=== PATIENT | female | born 1980 | race Asian ===

== ENCOUNTER 2024-10-17 09:38 | Emergency (ER) | payer OTHER, SELFPAY ==
[2024-10-17] VITALS (14 sets, daily range): BP systolic 120–194; BP diastolic 85–153; PULSE 59–97; RESP 16–19; TEMP 36.6; O2SAT 98–100
--- NOTE | ~2024-10-17 | XR_ITS ---
XR chest 2V Ordering provider: Lanre Harrell MD History: 44 years Female with . CP dizzy nausea . Comparison: None. FINDINGS: MEDIASTINUM: The cardiac silhouette is not enlarged. LUNGS: No infiltrates, effusions or pneumothorax. OTHER: No free air under the diaphragm. IMPRESSION: No acute cardiopulmonary pathology. Reviewed, dictated and finalized at location A. 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
--- NOTE | 2024-10-17 09:49 | ECG_ITS ---
Test Date: 2024-10-17 09:47:05 Measurements Intervals [place] Rate: 90 P: 56 VT: 138 QRS: 29 QRSD: 98 T: -16 QT: 347 QTc: 426 Interpretive Statements SINUS RHYTHM No previous ECG available for comparison Electronically Signed On 10-17-2024 14:43:44 SKILL TRAINING PROGRAM COORDINATOR by Clarita Fletcher M.D.
--- NOTE | 2024-10-17 09:57 | ED_ITS ---
HPI - Chest Pain General Chief Complaint: Chest Pain Stated Complaint: sob Time Seen by Provider: 10/17/24 09:51 History of Present Illness HPI narrative: 44-year-old female with reported history of hypertension and hyperlipidemia presents to the emergency department with at bedside for chest pain. Patient states she has had a burning sensation in her chest for the past couple days, however she woke up this morning with a sharp pain in her chest along with shortness of breath. She states the pain waxes and wanes, worse when she takes a deep breath. Denies exertional symptoms. She states the pain radiates to her left scapula. She takes metoprolol but did not take a dose this morning but has otherwise been compliant. She denies lower extremity edema, cough or congestion, hemoptysis, history of VTE, recent surgeries or hospitalizations, prior cardiac history, family cardiac history. She does not smoke. States she had similar symptoms 5-7 years ago and was evaluated by a liquid chlorine operator. States she had a stress test at that time that was unremarkable. Related Data Home Medications ?Medication ?Instructions ?Recorded ?Confirmed ?Last Taken ?Type famotidine 20 mg tablet 20 mg PO BID 10/17/24 10/17/24 10/16/24 History metoprolol succinate 50 mg 50 mg PO DAILY 10/17/24 10/17/24 10/16/24 History tablet,extended release 24 hr Allergies Allergy/AdvReac Type Severity Reaction Status Date / Time plum Allergy Unknown Verified 10/17/24 09:57 Review of Systems 2 Review of Systems: All systems reviewed & are unremarkable except as noted in HPI and below Exam 2 Narrative: GENERAL: Well-appearing, well-nourished, and in no acute distress. HEAD: Normocephalic, atraumatic. EYES: PERRLA and EOMI. ENT: Nares clear, no rhinorrhea or epistaxis. Mucous membranes moist. NECK: Supple. CHEST: Clear to auscultation. No respiratory distress. speaking in full sentences HEART: Regular rate and rhythm. No murmur heard. Normal peripheral pulses. ABDOMEN: Soft, nontender, nondistended, normal active bowel sounds. EXTREMITIES: Normal range of motion. No edema. Negative Homans bilaterally SKIN: Warm, dry, no rash. NEURO: No focal deficits. Alert and oriented x3 Course Vital Signs Vital signs: Vital Signs Temperature 97.8 F 10/17/24 09:50 Pulse Rate 88 10/17/24 09:50 Respiratory Rate 18 10/17/24 09:50 Blood Pressure 144/100 H 10/17/24 09:50 Pulse Oximetry 100 10/17/24 09:50 Oxygen Delivery Room Air 10/17/24 09:50 Temperature 97.8 F 10/17/24 09:50 Pulse Rate 59 L 10/17/24 12:31 Respiratory Rate 16 10/17/24 12:31 Blood Pressure 129/88 10/17/24 12:31 Pulse Oximetry 100 10/17/24 12:31 Oxygen Delivery Room Air 10/17/24 10:07 MDM - Chest Pain MDM Narrative Medical decision making narrative: 44-year-old female presents to the emergency department for chest pain and shortness of breath. See HPI for further history. Vitals with blood pressure 144/100, otherwise unremarkable. Patient does have history of hypertension and did not take her metoprolol today. Will provide a dose here. She is resting comfortably in the exam bed and is in no distress. She is speaking in full sentences. Lung sounds are clear. EKG shows normal sinus rhythm with rate of 90 ppm, normal MI interval, normal QRS duration, normal QTC, no ischemic changes. Troponin is undetectable x2. D- dimer is less than 0.27, wells score is low risk. Chest x-ray shows no acute cardiopulmonary findings. CBC and chemistries are unremarkable. Lipase is normal. Patient received her daily dose of metoprolol with improvement in blood pressure to 129/88. Patient received Pepcid with resolution of symptoms. Will provide Pepcid to the pharmacy as reflux may be source of symptoms. Also encouraged to follow up with Cardiology for outpatient stress test, referral provided. ED return precautions discussed. She is agreeable with the plan verbalized understanding. Discharged in stable condition. Lab Data 10/17/24 10:02 10/17/24 10:02 Labs: Lab Results 10/17/24 10/17/24 10/17/24 Range/Units 10:02 10:02 13:05 WBC 6.9 (4.5-10.0) K/mm3 RBC 4.47 (4.2-5.4) M/mm3 Hgb 14.5 (12.0-15.0) g/dL Hct 41.9 (37.0-47.0) % MCV 93.7 (80-100) fl MCH 32.4 (26-34) pg MCHC 34.6 (32-36) g/dl RDW 12.3 (11.5-14.5) % Plt Count 241 (150-375) k/mm3 MPV 10.3 (7.4-10.4) fl Immature Gran % (Auto) 0.6 H (0-0.5) % Neut % (Auto) 68.2 (45.5-73.1) % Lymph % (Auto) 21.7 (18.3-44.2) % [place] % (Auto) 7.8 (2.6-8.5) % Eos % (Auto) 1.3 (0-4.4) % Baso % (Auto) 0.4 (0.2-1.2) % Lymph # (Auto) 1.50 (0.9-3.2) K/mm3 [place] # (Auto) 0.5 (0.1-0.6) K/mm3 Eos # (Auto) 0.1 (0-0.3) K/mm3 Baso # (Auto) 0.0 (0.0-0.1) K/mm3 Abs Immat Gran (auto) 0.04 H (0.00-0.031) K/mm3 Absolute Neuts (auto) 4.7 (1.3-6.7) K/mm3 Absolute Nucleated RBC 0.000 (0.0-0.012) K/mm3 Nucleated RBC % 0.0 (0.0-0.2) % PT 12.9 (11.1-14.7) Seconds INR 0.9 APTT 21.2 L (22.3-36.8) Seconds D-Dimer < 0.27 Cancelled (<0.48) ug/mL Sodium 137 (137-145) mmol/L Potassium 3.8 (3.4-5.0) mmol/L Chloride 106 (98-107) mmol/L Carbon Dioxide 25 (22-30) mmol/L Anion Gap 6 (4-12) mmol/L BUN 10 (7-17) mg/dL Creatinine 0.60 L (0.7-1.0) mg/dL Estim Creat Clear Calc 79 ml/min Estimated GFR > 60 (59 - ) Glucose 84 (65-110) mg/dL Calcium 9.2 (8.4-10.2) mg/dL Total Bilirubin 1.0 (0.2-1.3) mg/dL AST 30 (14-36) U/L ALT 26 (6-35) U/L Alkaline Phosphatase 55 (38-126) U/L Troponin I < 0.012 < 0.012 (0.000-0.034) ng/mL NT-Pro-B Natriuret Pep < 20 (19.9-100) pg/mL Total Protein 8.0 (6.3-8.2) g/dL Albumin 4.6 (3.5-5.1) g/dL Lipase 182 (23-300) U/L Discharge Plan Discharge Clinical Impression: Atypical chest pain Patient Disposition: Home, Self-Care Condition: Stable Instructions: Antibiotic Form, Chest Pain (ED) Additional Instructions: Follow up with a liquid chlorine operator for an outpatient stress test. Return to the emergency department if you develop any new or worsening symptoms. Patient Language: Andorran Prescriptions: New famotidine 20 mg tablet 20 mg PO DAILY Qty: 20 0RF No Action metoprolol succinate 50 mg tablet extended release 24 hr 50 mg PO DAILY famotidine 20 mg tablet 20 mg PO BID Follow-up/Referrals: Clark,Heather Laureano APN [Primary Care Provider] - Clarita Fletcher MD [Physician] - Quality HEART score for chest pain patients History: slightly suspicious ECG: normal Age: > 45 and < 65 years Risk factors: > or = to 3 risk factors of atherosclerotic disease Troponin: < or = to 1x normal limit Heart score: 3
[2024-10-17] MEDS: FAMOTIDINE 20 MG/2 ML VIAL IV PUSH (10:02)
[2024-10-17] MEDS: ASPIRIN 81 MG CHEWABLE TABLET 324 MG PO (10:02)
[2024-10-17] MEDS: METOPROLOL SUCCINATE EXT REL 50 MG TABCR PO (10:05)
[2024-10-17 10:13] LABS: Basophils Percent Auto 0.4 % (0.2-1.2); Eosinophils Absolute Auto 0.1 K/mm3 (0-0.3); Eosinophils Percent Auto 1.3 % (0-4.4); Hematocrit 41.9 % (37.0-47.0); Hemoglobin 14.5 g/dL (12.0-15.0); Immature Granulocyte Absolute 0.04 K/mm3 (0.00-0.031); Immature Granulocyte Percent A 0.6 % (0-0.5); Lymphocytes Percent Auto 21.7 % (18.3-44.2); Mean Corpuscular HGB Conc 34.6 g/dl (32-36); Mean Corpuscular Hemoglobin 32.4 pg (26-34); Mean Corpuscular Volume 93.7 fl (80-100); Mean Platelet Volume 10.3 fl (7.4-10.4); Monocytes Absolute Auto 0.5 K/mm3 (0.1-0.6); Monocytes Percent Auto 7.8 % (2.6-8.5); Neutrophils Absolute Auto 4.7 K/mm3 (1.3-6.7); Neutrophils Percent Auto 68.2 % (45.5-73.1); Platelet Count Result 241 k/mm3 (150-375); Red Blood Count 4.47 M/mm3 (4.2-5.4); Red Cell Distribution Width 12.3 % (11.5-14.5); White Blood Count 6.9 K/mm3 (4.5-10.0)
[2024-10-17 10:33] LABS: INR 0.9; Partial Thromboplastin Time 21.2 Seconds (22.3-36.8); Prothrombin Time 12.9 Seconds (11.1-14.7)
[2024-10-17 10:34] LABS: Alanine Aminotransferase 26 U/L (6-35); Albumin Level 4.6 g/dL (3.5-5.1); Alkaline Phosphatase 55 U/L (38-126); Anion Gap 6 mmol/L (4-12); Aspartate Amino Transferase 30 U/L (14-36); Blood Urea Nitrogen 10 mg/dL (7-17); Calcium 9.2 mg/dL (8.4-10.2); Carbon Dioxide 25 mmol/L (22-30); Chloride 106 mmol/L (98-107); Estimated CRCL calculation 79 ml/min; Estimated Glomerular Filt Rate > 60; Glucose 84 mg/dL (65-110); Lipase 182 U/L (23-300); Potassium 3.8 mmol/L (3.4-5.0); Sodium 137 mmol/L (137-145)
[2024-10-17 10:43] LABS: NT Pro B Type Natriuretic Pept < 20 pg/mL (19.9-100)
[2024-10-17 10:46] LABS: D Dimer < 0.27 ug/mL (<0.48)
[2024-10-17 11:07] LABS: Troponin I < 0.012 ng/mL (0.000-0.034)
--- NOTE | 2024-10-17 12:31 | ECG_ITS ---
Test Date: 2024-10-17 12:35:03 Measurements Intervals [place] Rate: 64 P: 58 MS: 148 QRS: 40 QRSD: 103 T: 19 QT: 421 QTc: 436 Interpretive Statements SINUS RHYTHM Compared to ECG 10/17/2024 09:47:05 No significant changes Electronically Signed On 10-17-2024 14:46:41 INFORMATION SYSTEMS TECHNICIAN by Clarita Fletcher M.D.
[2024-10-17 13:36] LABS: Troponin I < 0.012 ng/mL (0.000-0.034)
--- OUTSIDE RECORDS SUMMARY | 2024-10-26 08:28 | XMS_ITS | Clinical Summary ---
Author Organization [facility] [employer] Address [address] [place] [address] Care Team Providers Care Rn Family Practice Name Role Phone Unavailable Primary Care Provider Unavailabl e Source Comments [facility] [employer],non-owned Affiliates and Associated Physician Practices is amultiple site organization consisting of ambulatory clinics and hospital sitesin [place], [place], [place] and [place]. This disclosure is being madepursuant to the Care Everywhere program and may not contain all information available regarding this patient. Last updated 18.[employer] Allergies No known active allergies Medications * Be aware that medications may not be up to date on this document. Alwaysverify current medications with the patient. Medication Sig Dispensed Refills Start Date End Date Status tretinoin (RETIN-A) 0.05 % cream Apply a pea-sized amount to entire face QHS. 30 day supply. 45 g 2 06/17/2020 Active Additional Information Patient not taking.Reported on 12/14/2021 cetirizine (ZYRTEC) 10 MG tablet Take 10 mg by mouth once daily 12/15/2020 Active ibuprofen (MOTRIN) 800 MG tablet Take 800 mg by mouth every 8 hours as needed 01/20/2021 Active fluticasone propionate (FLONASE) 50 MCG/ACT nasal spray USE ONE SPRAY IN EACH NOSTRIL ONCE A DAY 01/19/2021 Active cyclobenzaprine (FLEXERIL) 10 MG tablet Take 10 mg by mouth nightly as needed 12/15/2020 Active Tri-Saba 0.01-4-0.05 % creamIndications:Madonna asma APPLY A PEA SIZED AMOUNT TO ENTIRE FACE NIGHTLY FOR 3 MONTHS AT A TIME. 30 DAY SUPPLY. 30 g 3 06/30/2022 Active Active Problems Problem Noted Date Diagnosed Date Iron deficiency 03/23/2017 Vitamin D deficiency 03/23/2017 Chest pain 03/22/2017 Health maintenance examination 03/22/2017 Hyperlipidemia 03/22/2017 Mitral valve prolapse 03/22/2017 Shortness of breath 03/22/2017 Sleep apnea, unspecified 03/22/2017 Immunizations Name Administration Dates Next Due INFLUENZA 10/21/2021,08/09/2020 Family History Medical History Relation Name Comments Cancer - Skin, Melanoma Neg Hx Cancer - Skin, Non Melanoma Neg Hx Social History Tobacco Use Types Packs/Day Years Used Date Smoking Tobacco: Never Smokeless Tobacco: Never Alcohol Use Standard Drinks/Week Comments No 0 (1 standard drink = 0.6 oz pur e alcohol) Sex and Gender Information Value Date Recorded Sex Assigned at Not on file Gender Identity Not on file Sexual Orientation Not on file Plan of Treatment Health Maintenance Due Date Last Done Comments COLOGUARD (AGES 45-75) - COL ON CA SCREENING 1978 COLON MONITORING 1978 COLONOSCOPY - COLON CA SCREENING 1978 CT COLONOGRAPHY - COLON CA SCREENING 1978 Colorectal Cancer Screening 1978 FIT - COLON CA SCREENING 1978 FLEX SIG - COLON CA SCREENING 1978 LIPID TESTING 1978 MAMMOGRAM 1978 PAP SMEAR 1978 HIV SCREENING 1993 HEPATITIS C SCREENING 08/03/1996 DTAP/TDAP/TD VACCINES (1 - Tdap) 1997 HEPATITIS B VACCINE (1 of 3 - 19+ 3-dose series) 1997 DEPRESSION SCREENING 10/31/2023 COVID-19 VACCINE (1 - 2023-2 5 season) 2024 INFLUENZA VACCINE (#1) 2024 1, 08/09/2020 ZOSTER VACCINE (1 of 2) 2028 HIB VACCINE Aged Out No longer eligi ble based on patient's age to complete this topic HPV VACCINE Aged Out No longer eligi ble based on patient's age to complete this topic MENINGOCOCCAL VACCINE Aged Out No mani ryland eligible based on patient's age to complete this topic PNEUMOCOCCAL VACCINE Aged Out No long er eligible based on patient's age to complete this topic
--- OUTSIDE RECORDS SUMMARY | 2024-10-26 08:28 | XMS_ITS | Encounter Summary ---
Author Organization [facility] Address [address] [place] [address] [address] [place] [address] Care Team Providers Care Billing Clinician Name Role Phone Unavailable Primary Care Provider Unavailabl e Encounter Details Date Type Department Care Team (Latest Contact Info) Description 01/02/2024 Travel Social History Tobacco Use Types Packs/Day Years Used Date Smoking Tobacco: Never Smokeless Tobacco: Never Alcohol Use Standard Drinks/Week Comments No 0 (1 standard drink = 0.6 oz pur e alcohol) Sex and Gender Information Value Date Recorded Sex Assigned at Not on file Gender Identity Not on file Sexual Orientation Not on file documented as of this encounter Plan of Treatment Not on file documented as of this encounter Visit Diagnoses Not on filedocumented in this encounter
--- OUTSIDE RECORDS SUMMARY | 2024-10-26 08:28 | XMS_ITS | Encounter Summary ---
Author Organization [facility] Address [address] [place] [address] [address] [place] [address] Care Team Providers Care Music Copyist Name Role Phone Unavailable Primary Care Provider Unavailabl e Encounter Details Date Type Department Care Team (Latest Contact Info) Description 03/27/2024 Travel Social History Tobacco Use Types Packs/Day [...]
--- OUTSIDE RECORDS SUMMARY | 2024-10-26 08:28 | XMS_ITS | Continuity of Care Document ---
Author Organization [facility] ROLANAdan (Adult Med) Address [address] [place] [address] Care Team Providers Care Warehouse Order Picker Name Role Phone HADDAD, HEATHER Primary Care Provider Unavailabl e Assessment No assessment recorded. Plan of Treatment Reminders Order Date Submit Date Provider Last Modified By Organization Details Last Modified Time Details Appointments None recorded. Lab TSH, ultra-sensi tive, serum [address] [address] [facility], [address], [place], [address], 10:37:05 CMP, serum or plasma 2023 [facility] [address] [facility], [address], [place], [address], 03:08:38 lipid panel, serum 20[address] [address] [facility], [address], [place], [address], 03:08:37 CBC 20[address] [facility] [address] [facility], [address], [place], [address], 03:08:39 Referral None recorded. Procedures None recorded. Surgeries None recorded. Imaging None recorded. Medication Orders cyclobenzap rine 10 mg tablet 2023 [facility]/Pharmacy #[id number], [address] [place], [address], 11:45:49 metoprolol succinate ER 50 mg tablet,exte nded release 24 hr 2023 024 [facility]/Pharmacy #[id number], [address] [place], [address], 13:56:43 Patient TargetsNo targets recorded. Patient Instructions Encounter Date Encounter Id Patient Instructions Last Modified By Organization Details Last Modified Time 07/31/2024 [id number] headache: care instructions Not available 07/31/2024 11:45:47 learning about high blood pressure Not available 07/31/2024 11:45:47 seasonal allergies: care instructions [email or web address] Not available 07/31/2024 11:45:46 Check blood pressure two or three times per week and record findings; bring to F/U appointment. [place] blood pressure is the top number below 140 and the bottom number below 90. If you experience any side effects of medication, call the office. Follow a low salt diet, drink at least 8-10 8oz glasses of water a day, exercise most days of the week. Not available 07/31/2024 11:42:48 follow up in 6 months Not available 07/31/2024 11:45:56 Reason for Referral None Reported. Problems Name Problem SNOMED Code Status Onset Date Resolution Date Notes Provider Name and Address Organization Details Recorded Time Vitamin D deficien cy 43183459 Active 2017 Not Available [facility] 3 09:31:13 Posterio r rhinorrh ea 79975796 Active 2017 Not Available [facility] 3 09:31:13 Bilatera l shoulder joint pain 75100242282 163992 Active 2019 Not Available [facility] 3 09:31:13 Numbness and tingling sensatio n of skin 16806528006 2 Active 2020 Not Available [facility] 3 09:31:13 Allergic conjunct ivitis of bilatera l eyes 57652040645 9102 Active 2022 Heather Haddad APN, ASSIGNMENT EDITOR-C Attn: Accounting [facility], [place], [address] , [place] [facility] 3 10:58:50 Environm ental allergy 575931067 Completed 02/02/2016 Amy Holliday domi, [place] [facility] 6 09:56:41 Abdomina l pain 57456853 Completed 02/02/2016 Amy [place], [place] [facility] 6 09:56:41 Gastroes ophageal reflux disease 354777495 Active Not Available [facility] 3 09:31:13 Numbness and tingling sensatio n of skin 87911172847 2 Completed 02/02/2016 Heather Haddad APN, ASSIGNMENT EDITOR-C Attn: Accounting ,[address] [facility], [place], [address] , [place] [facility] 1 17:32:26 Breast lump 29978975 Completed 02/02/2016 [place] [facility] 6 09:56:41 Breast lump symptom Completed 02/02/2016 Amy Mg [place] [facility] 6 09:56:41 Backache 022017107 Completed 02/02/2016 [place] [facility] 6 09:56:41 Upper respirat ory infectio n 53927122 Completed 02/02/2016 [place] [facility] 6 09:56:41 Spasm of back muscles 252520931 Completed 02/02/2016 [place] Holliday null[place] [facility] 6 09:56:41 Type B viral hepatiti s 14437197 Active Not Available [facility] 3 09:31:13 Bilatera l knee pain Active Not Available [facility] 3 09:31:13 [facility]ia l hyperten cory 33688119 Active 2015 see cardio Not Available [facility] 3 09:31:13 Shoulder pain 91017299 Completed 201605/08/2019 DIEGO L[place], [place] - [facility] 9 08:55:12 Bacteria l conjunct ivitis 681049304 Completed 201609/06/2017 Heather Haddad APN, KASIA Attn: Accounting ,[address] [facility], [place], [address] , [place] [facility] 7 08:44:50 Seasonal allergic rhinitis 280327716 Active 2016 Not Available [facility] 3 09:31:13 Mitral valve regurgit ation 96234926 Active 2016 mild Not Available [facility] 3 09:31:13 Tricuspi d valve regurgit ation 507416295 Active 2016 mild Not Available [facility] 3 09:31:13 Pulmonic valve regurgit ation 83288868 Active 2016 mild; on echo April 2017 Not Available [facility] 3 09:31:13 Headache 12375096 Active 2016 Not Available [facility] 3 09:31:13 Notes:Liver CheckUP Problem Notes None recorded. Procedures Surgical History Date Name Laterality Status Provider Name and Address Organization Details Recorded Time 3 Most Recent Mammogram completed CASSIUS Chowdhury [place] - [facility] 08/24/2023 15:48:02 3 Control Implant Removal completed CINTIA Landaverde Attn: Accounting,[address] [facility], [place], [address], [place] [facility] 06/17/2023 10:36:18 3 Control Implant Insertion completed CINTIA Landaverde Attn: Accounting,[address] [place], [address], [place] [facility] 06/17/2023 10:36:16 0 Control Implant Insertion completed CINTIA Landaverde Attn: Accounting,[address] [place], [address], [place] [facility] 08/19/2020 10:04:49 0 IUD Removal completed CINTIA Landaverde Attn: Accounting,[address] [facility], [place], [address], [place] [facility] 08/19/2020 10:05:02 8 IUD Removal completed Opal Nuñez MD Attn: Accounting,[address] [facility], [place], [address], [place] [facility] 12/28/2017 11:26:06 8 IUD Insertion completed Opal Nuñez MD Attn: Accounting,[address] [facility], [place], [address], [place] [facility] 12/28/2017 11:26:17 7 IUD Insertion completed Opal Nuñez MD Attn: Accounting,[address] [place], [address], [place] [facility] 09/14/2017 14:15:36 7 IUD Insertion completed Opal Nuñez MD Attn: Accounting,[address] [place], [address], [place] [facility] 08/18/2017 09:53:37 7 Control Implant Removal completed Opal Nuñez MD Attn: Accounting,[address] [place], [address], [place] [facility] 08/10/2017 10:04:42 7 Date of Last Pap Smear completed Cecilia العراقي RN [place] [facility] 05/30/2023 09:37:48 6 Control Implant Removal completed Opal Nuñez MD Attn: Accounting,[address] [place], [address], [place] [facility] 02/11/2016 19:43:57 6 Control Implant Insertion completed Opal Nuñez MD Attn: Accounting,[address] [place], [address], [place] [facility] 02/11/2016 19:43:57 5 Caesarean Section completed Suzi Gould MA [facility] 10/08/2014 08:48:23 4 Caesarean Section completed Suzi Gould MA [facility] 10/08/2014 08:48:23 Imaging Results None recorded. Procedure Notes None recorded. Medical Equipment None Reported. Allergies Allergen ID Allergen Name Allergen Category Reaction Reaction Severity Criticality Documentation Date Start Date Code Code System Note Provider Name and Address Organization Details Recorded Time 39681 apple extract food facial swelling Not available Not available 07/19/2017 51653 65 RxNorm Heatherangelika Haddad SECOND CRUSHER, ASSIGNMENT EDITOR-C Attn: Accountin g,[address] [facility], [place], [address], [facility] 7 10:06:38 03706 plum preparati on food facial swelling Not available Not available 07/19/2017 22796 7 RxNorm Heather Amber, SECOND CRUSHER, ASSIGNMENT EDITOR-C Attn: Accountin g,[address] [facility], [place], [address], [facility] 7 10:06:56 No known drug allergies Medications Name Sig Start Date Stop Date Status Note LastModified by Organization Details LastModified Time cyclobenz aprine 10 mg tablet TAKE 1 TABLET BY MOUTH AT BEDTIME NEEDED active Not Available Not Available No t Available amoxicill in 500 mg capsule 11/03 completed Not Available Not Available Not Available Mirena 21 mcg/24 hr (up to 8 years) 52 mg intrauter ine device Take by intraute rine route. 09/14 completed Lot# [id number] Exp: 03/2020 Not Available Not Available Not Available cetirizin e 10 mg tablet TAKE 1 TABLET BY MOUTH EVERY DAY active Not Available Not Available No t Available azithromy jarvis 250 mg tablet TAKE 2 TABLETS (500 MG) BY ORAL ROUTE ONCE DAILY FOR 1 DAY THEN 1 TABLET (250 MG) BY ORAL ROUTE ONCE DAILY FOR 4 DAYS 10/29 completed Not Available Not Available Not Available ibuprofen 800 mg tablet TAKE 1 TABLET BY MOUTH EVERY 6 TO 8 HOURS NEEDED 04/19 completed Not Available Not Available Not Available fluconazo le 150 mg tablet Take 1 tablet by oral route. 05/12 completed Not Available Not Available Not Available metoprolo l succinate ER 50 mg tablet,ex tended release 24 hr Take 1 tablet every day by oral route. 2023 active Not Available Not Available Not Avai lable meloxicam 15 mg tablet TAKE 1 TABLET BY MOUTH EVERY DAY active Not Available Not Available No t Available Medrol (Jeffery) 4 mg tablets in a dose pack Take by oral route as directed . 08/10 completed Not Available Not Available Not Available prednison e 20 mg tablet 08/24 completed Not Available Not Available Not Available sumatript an 50 mg tablet TAKE 1 TABLET BY MOUTH AT ONSET OF MIGRAINE ; MAY REPEAT IN 2 HRS IF NO IMPROVEM ENT, DO NOT EXCEDE 200 MG WITHIN 24 HRS 05/08 completed pt states it causes stomache pain Not Available Not Available Not Available metronida zole 500 mg tablet Take 1 tablet every 12 hours by oral route for 7 days. 06/12 completed Not Available Not Available Not Available acetamino phen 300 mg-codein e 30 mg tablet Take 1 tablet every 6 hours by oral route. 05/08 completed Not Available Not Available Not Available ciproflox acin 500 mg tablet Take 1 tablet every 12 hours by oral route for 3 days. 07/19 completed Not Available Not Available Not Available sulfameth oxazole 800 mg-trimet hoprim 160 mg tablet Take 1 tablet every 12 hours by oral route for 5 days. 02/28 completed Not Available Not Available Not Available butalbita l-acetami nophen-ca ffeine 50 mg-325 mg-40 mg tablet TAKE 1 TABLET BY MOUTH EVERY 4 HOURS NEEDED 08/24 completed Not Available Not Available Not Available guaifenes in 200 mg tablet Take 1 tablet every 4 hours by oral route as needed. 08/10 completed Not Available Not Available Not Available pantopraz ole 20 mg tablet,de layed release TAKE 2 TABLETS BY MOUTH EVERY DAY. 07/19 completed Not Available Not Available Not Available meloxicam 7.5 mg tablet Take 1 tablet every day by oral route for 30 days. 09/14 completed Not Available Not Available Not Available famotidin e 20 mg tablet TAKE 1 TABLET BY MOUTH TWICE A DAY active Not Available Not Available No t Available doxycycli ne monohydra te 100 mg capsule 05/08 completed Not Available Not Available Not Available neomycin- polymyxin -dexameth 3.5 mg/mL-10, 000 unit/mL-0 .1% eye drops INSTILL 1 DROP IN LEFT EYE FOUR TIMES DAILY FOR 5 DAYS 01/04 completed Not Available Not Available Not Available ranitidin e 150 mg tablet TAKE 1 TABLET BY MOUTH TWICE A DAY 05/12 completed OTC Not Available Not Available Not Available polymyxin B sulfate 10,000 unit-trim ethoprim 1 mg/mL eye drops INSTILL 1 DROP INTO AFFECTED EYE(S) BY OPHTHALM IC ROUTE EVERY 6 HOURS FOR 7 DAYS 07/19 completed Not Available Not Available Not Available omeprazol e 20 mg capsule,d elayed release TAKE 1 CAPSULE BY MOUTH TWICE A DAY 08/24 completed Not Available Not Available Not Available metoprolo l succinate ER 25 mg tablet,ex tended release 24 hr TAKE 1 TABLET BY MOUTH EVERY DAY 04/24 completed Not Available Not Available Not Available ergocalci ferol (vitamin D2) 1,250 mcg (50,000 unit) capsule TAKE ONE CAPSULE BY MOUTH ONE TIME PER WEEK 05/08 completed pt states she didn't refill Not Available Not Available Not Available fluticaso ne propionat e 50 mcg/actua tion nasal spray,radha pension SPRAY 1 SPRAY INTO EACH NOSTRIL ONCE DAILY active Not Available Not Available No t Available ParaGard T 380A 380 square mm intrauter ine device Take 1 device by intraute rine route. 08/19 completed Lot# [id number] Exp:2021 Not Available Not Available Not Available atenolol 50 mg tablet Take 1 tablet by mouth daily 08/10 completed Not Available Not Available Not Available naproxen 500 mg tablet TAKE 1 TABLET BY MOUTH TWICE A DAY as needed 09/14 completed Not Available Not Available Not Available amoxicill in 875 mg-potass ium clavulana te 125 mg tablet Take 1 tablet every 12 hours by oral route for 10 days. 08/10 completed Not Available Not Available Not Available bacitraci n-polymyx in B 500 unit-10,0 00 unit/gram eye ointment APPLY 1 APPLICAT ION 4 TIMES A DAY INTO AFFECTED EYE FOR 7 DAYS 04/24 completed Not Available Not Available Not Available cyclobenz aprine 5 mg tablet Take 1 tablet every 8 hours by oral route as needed. 08/10 completed Not Available Not Available Not Available nitrofura ntoin monohydra te/macroc rystals 100 mg capsule Take 1 capsule every 12 hours by oral route for 7 days. 05/12 completed Not Available Not Available Not Available ParaGard T 380A 12/28 completed Not Available Not Available Not Available omeprazol e 20 mg tablet,de layed release TAKE 1 TABLET BY MOUTH TWICE A DAY (INSURAN CE WILL ONLY COVER 30 TABLE... 07/19 completed Not Available Not Available Not Available Voltaren 1 % topical gel APPLY 2 GRAMS TO THE AFFECTED AREA(S) BY TOPICAL ROUTE 4 TIMES PER DAY 2020 active Not Available Not Available Not Avai lable Nexplanon 68 mg subdermal implant Inject 1 implant by subcutan eous route. 2022 active Not Available Not Available Not Avai lable Nexplanon 02/21 completed Not Available Not Available Not Available Afluria 5801-6472 (PF) 45 mcg (15 mcg x 3)/0.5 mL intramusc ular syringe 08/10 completed Not Available Not Available Not Available Vitals Date Recorded Body height Body mass index (BMI) Body weight Oxygen saturation Oxygen saturation in Arterial blood by Pulse oximetry Heart rate Respiratory rate Body temperature Systolic blood pressure Diastolic blood pressure Provider Name and Address Organization Details Last Updated DateTime 4 165.1 cm 22 kg/m2 82407.1 9 g 99 % 99 % 80 /min 16 /min 97.5 [degF] 122 mm[Hg] 86 mm[Hg] CASSIUS Rose [facility] 4 11:17:37 Social History Question Answer Notes LastModified by Organizat ion Details LastModified Time Tobacco Smoking Status Never Smoker DIEGO Casiano, [place] - [facility] 10/08/2014 08:48:23 Do You Have An Advance Directive? No Information not available 05/08/2019 What Is Your Level Of Alcohol Consumption? None [email or web address] Information not available 10/08/2014 Are You Blind Or Do You Have Difficulty Seeing? No Glasses Information not available 06/15/2021 Is Blood Transfusion Acceptable In An Emergency? Yes Information not available 02/02/2016 What Is Your Level Of Caffeine Consumption? Occasional Information not available 07/31/2024 How Much Tobacco Do You Chew? None Information not available 12/23/2015 In The 14 Days Before Symptom Onset, Have You Had Close Contact With A Laboratory-confir med COVID-19 While That Case Was Ill? No Information not available 05/12/2020 In The 14 Days Before Symptom Onset, Have You Had Close Contact With A Person Who Is Under Investigation For COVID-19 While That Person Was Ill? No Information not available 05/12/2020 Have You Been To An Area Known To Be High Risk For COVID-19? No Information not available 05/12/2020 Are You Currently Employed? Yes Information not available 02/02/2016 Are You Deaf Or Do You Have Serious Difficulty Hearing? No Information not available 06/15/2021 What Type Of Diet Are You Following? REGULAR [email or web address] Information not available 10/08/2014 Which Illicit Or Recreational Drugs Have You Used? None Information not available 05/08/2019 Do You Or Have You Ever Used E-cigarettes Or Vape? Never Used Electronic Cigarettes Information not available 05/12/2020 Education 2 Year College Informatio n not available 05/08/2019 What Is Your Occupation? [employer] Information not available 05/08/2019 Are There Any Guns Present In Your Home? No Information not available 05/08/2019 Hard Of Hearing Or Deaf In One Or Both Ears? Yes Information not available 06/15/2021 Legally Blind In One Or Both Eyes? No Information no t available 05/12/2020 Live Alone Or With Others? With Others Information not available 02/02/2016 Marital Status Informatio n not available 12/23/2015 What Was The Date Of Your Most Recent Tobacco Screening? 07/31/2024 Information not available 07/31/2024 How Many Children Do You Have? 2 Information not available 02/02/2016 Performs Monthly Self-breast Exam? No Information no t available 02/02/2016 Do You Use Protection During Sex? No Information not available 02/02/2016 What Is Your Relationship Status? Information not available 02/02/2016 Do You Use Your Seat Belt Or Car Seat Routinely? Yes Information not available 06/15/2021 Seat Belts Used Routinely Yes Information not available 02/02/2016 Are You Sexually Active? Yes Information not available 02/02/2016 Smoke Alarm In Home No Information not available 05/08/2019 Do You Have Smoke And Carbon Monoxide Detectors In Your Home? Yes Information not available 06/15/2021 Are You Passively Exposed To Smoke? No Information no t available 06/15/2021 Do You Or Have You Ever Used Smokeless Tobacco? Never Used Smokeless Tobacco Information not available 05/12/2020 How Much Tobacco Do You Smoke? No Information not available 09/06/2017 General Stress Level Medium Information not available 02/02/2016 Do You Feel Stressed (tense, Restless, Nervous, Or Anxious, Or Unable To Sleep At Night)? [id number] Information not available 06/15/2021 Do You Use Any Illicit Or Recreational Drugs? No [email or web address] Information not available 08/24/2022 Do You Use Sunscreen Routinely? Yes Information not available 02/02/2016 Has Tobacco Cessation Counseling Been Provided? Yes Information not available 10/18/2023 On What Date Was Tobacco Cessation Counseling Provided? 07/31/2024 Information not available 07/31/2024 How Many Years Have You Smoked Tobacco? 0 Information not available 09/06/2017 Do You Or Have You Ever Used Any Other Forms Of Tobacco Or Nicotine? No [email or web address] Information not available 10/29/2021 Sex: Female Functional Status Question Answer Note LastModified by Organizat ion Details LastModified Time Are you able to care for yourself? Yes Information not available 06/15/2021 What is your exercise level? Occasional [email or web address] Information not available 10/08/2014 Mental Status None recorded. Family History Relationship Description Onset Age of this Age Resolved Age Notes LastModified by Organization Details LastModified Time Mother History of liver disease [email or web address] Not available 2015 09:56:42 Medical History Condition Response Coronary Artery Disease N Other N High Blood Pressure N Atrial Fibrillation N Breast Cancer N Lung Disease N Blood Clots N COPD N Depression N Breast Problem N Anesthesia Complications N Headaches/Migraines Y Anxiety Disorder N Muscle, Joint, or Bone Problems N Polyps N Infertility N Acid Reflux (GERD) Y Cancer N Stroke N Endometriosis N High Cholesterol N Liver Disease Y Headaches Y Kidney or Bladder Problems N Thyroid Problems N GI Problems N Acne N Eating Disorder N Skin Problems N Anemia N Heart Attack ([place]) N Ovarian Cancer N Diabetes N Blood Transfusions N Seizures/Epilepsy N Abuse/Domestic Violence N Asthma N Allergies N Hepatitis Y Heart Disease N Pre-Eclampsia N Osteoporosis N Heart Failure N Gynecological History Statement/Question Response Flow Light Date of LMP 07/28/2024 Duration of Flow (days) 4 Most Recent Mammogram 08/23/2023 Age at Menarche 12 Current Control Method Implant Age at First Child 14 Sexually Active? Y Menses Monthly N Date of Last Pap Smear 06/17/2017 Sexual Problems? Y LMP Definite Desired Control Method IUD Obstetrics History GPAL:G 2 P 2 0 0 2 Type Value Full Term 2 Living 2 Total 2 Immunizations Vaccine Type Date Status Note Provider Nam e and Address Organization Details Recorded Time Influenza, split virus, quadrivalent, PF 0 completed Heather Haddad APN ASSIGNMENT EDITOR-C Attn: Accounting, [address] [place], [place], [address] [place] [address], [place] [facility] 06/12/2023 21:49:37 zoster recombinant 2 completed Heather Haddad APN ASSIGNMENT EDITOR-C Attn: Accounting[address] [place], [place], [address] [place] [address], [place] [facility] 06/12/2023 21:49:37 COVID-19, mRNA, LNP-S, PF, 30 mcg/0.3 mL dose 1 august Haddad APN, ASSIGNMENT EDITOR-C Attn: Accounting[address] [place], [place], [address] [place] [address], [place] [facility] 06/12/2023 21:49:37 Influenza, split virus, trivalent, preservative 3 completed Heather Haddad, SECOND CRUSHER, ASSIGNMENT EDITOR-C Attn: Accounting,[address] [facility], [place], [place], [address] [place] [address], [facility] - [facility] 06/12/2023 21:49:37 Influenza, split virus, quadrivalent, PF 1 completed Heather Haddad, SECOND CRUSHER, ASSIGNMENT EDITOR-C Attn: Accounting,[address] [facility], [place], [address] [place] [address], [facility] - [facility] 06/12/2023 21:49:37 COVID-19, mRNA, LNP-S, PF, 30 mcg/0.3 mL dose 1 completed Heather Haddad, SECOND CRUSHER, ASSIGNMENT EDITOR-C Attn: Accounting,[address] [facility], [place], [address] [place] [address], [facility] - [facility] 06/12/2023 21:49:37 Influenza, split virus, trivalent, preservative 4 completed Heather Haddad, SECOND CRUSHER, ASSIGNMENT EDITOR-C Attn: Accounting,[address] [facility], [place], [address] [place] [address], [facility] - [facility] 06/12/2023 21:49:37 Influenza, split virus, trivalent, PF 5 completed Heather Haddad, SECOND CRUSHER, ASSIGNMENT EDITOR-C Attn: Accounting,[address] [facility], [place], [address] [place] [address], [facility] - [facility] 06/12/2023 21:49:37 Influenza, split virus, quadrivalent, preservative 6 completed Not Available [facility] 11/17/2019 02:32:32 COVID-19, mRNA, LNP-S, bivalent, PF, 30 mcg/0.3 mL dose 2 completed Heather Haddad, SECOND CRUSHER, ASSIGNMENT EDITOR-C Attn: Accounting,[address] [facility], [place], [address] [place] [address], [facility] - [facility] 06/12/2023 21:49:37 Influenza, split virus, quadrivalent, PF 3 completed Heather Haddad, SECOND CRUSHER, ASSIGNMENT EDITOR-C Attn: Accounting,[address] [facility], [place], [address] [place] [address], [facility] - [facility] 10/18/2023 10:56:51 COVID-19, mRNA, LNP-S, PF, magdy-sucrose, 30 mcg/0.3 mL 4 completed Heather Haddad SECOND CRUSHER, ASSIGNMENT EDITOR-C Attn: Accounting,[address] [facility], [place], [address] [place] [address], [facility] - [facility] 07/31/2024 11:44:58 Influenza, MDCK, trivalent, PF 4 completed Heather Haddad APN, ASSIGNMENT EDITOR-C Attn: Accounting,[address] [facility], [place], [address] [place] [address], [facility] - [facility] 07/31/2024 11:44:58 Hep A-Hep B 4 completed Heather Haddad APN, ASSIGNMENT EDITOR-C Attn: Accounting,[address] [facility], [place], [address] [place] [address], [facility] - [facility] 07/31/2024 11:44:58 Influenza, split virus, quadrivalent, preservative 7 completed Not Available [facility] 11/17/2019 02:33:59 Influenza, split virus, quadrivalent, preservative 8 completed Not Available [facility] 11/17/2019 02:36:00 Influenza, split virus, quadrivalent, preservative 9 completed Not Available [facility] 02:38:12 Influenza, split virus, quadrivalent, preservative 2 completed Heather Haddad APN, ASSIGNMENT EDITOR-C Attn: [employer],[address] [facility], [place], [place], [address] [place] [address], [facility] 08/24/2022 17:12:34 Past Encounters Encounter ID Performer Location Encounter Start Date Encounter Closed Date Diagnosis/Indication Diagnosis SNOMED-CT Code Diagnosis ICD10 Code [id number] Heather Haddad APN, ASSIGNMENT EDITOR-C [facility] [address] [place] [address] 07/31/2024 10:55:40 08/03/2024 17:18:01 Essential hypertension 85348696 I10 Headache 58578027 R51.9 Seasonal a llergic rhinitis 242007529 J30.2 Adult heal th examination 641488374 Z00.01 Health Concerns Section Related Observation LastModified by Organization Adriana ls LastModified Time None Recorded Concern Status LastModified by Organization Details LastModified Time None Recorded Payers Encounter Date Sequence Insurance Name Policy Number Policy Alba Covered Member ID Alba Member ID Guarantor Name 07/31/2024 1 [facility] ON OR AFTER 04/30/21 (MEDICAID REPLACEMENT - HMO) Melody Aguayo [id number] Melody Aguayo Notes Date Note Type Note Provider Name and Address Organization Details Recorded Time 07/31/2024 text/html no more headache s now, managed with medicationback is also better with muscle relaxer, no more tension Heather Haddad APN, ASSIGNMENT EDITOR-C Attn: [address] [place], [address], [facility] 07/31/2024 13:59:57 OBGyn Episode No OBEpisode recorded.
--- OUTSIDE RECORDS SUMMARY | 2024-10-26 08:28 | XMS_ITS | Patient Health Summary ---
Author Organization [facility] Address [address] [place] [address] Care Team Providers Care Side Piece Coverer Name Role Phone Unavailable Primary Care Provider Unavailabl e Note from [facility],non-owned Affiliates and Associated Physician Practices is amultiple site organization consisting of ambulatory clinics and hospital sitesin [place], [place], [place] and [place]. This disclosure is being madepursuant to the Care Everywhere program and may not contain all information available regarding this patient. Last updated 18.[facility] Allergies No known active allergies Medications * Be aware that medications may not be up to date on this document. Alwaysverify current medications with the patient. * tretinoin (RETIN-A) 0.05 % cream(Started 06/17/2020) Apply a pea-sized amount to entire face QHS. 30 day supply. 2 refills by 06/17/2021 * cetirizine (ZYRTEC) 10 MG tablet(Started 12/15/2020) Take 10 mg by mouth once daily * ibuprofen (MOTRIN) 800 MG tablet(Started 01/20/2021) Take 800 mg by mouth every 8 hours as needed * fluticasone propionate (FLONASE) 50 MCG/ACT nasal spray(Started 01/19/2021) USE ONE SPRAY IN EACH NOSTRIL ONCE A DAY * cyclobenzaprine (FLEXERIL) 10 MG tablet(Started 12/15/2020) Take 10 mg by mouth nightly as needed * Tri-Saba 0.01-4-0.05 % cream(Started 06/30/2022) APPLY A PEA SIZED AMOUNT TO ENTIRE FACE NIGHTLY FOR 3 MONTHS AT A TIME. 30 DAY SUPPLY. 3 refills by 06/30/2023 Active Problems Problem Noted Date Diagnosed Date Iron deficiency 03/23/2017 Vitamin D deficiency 03/23/2017 Chest pain 03/22/2017 Health maintenance examination 03/22/2017 Hyperlipidemia 03/22/2017 Mitral valve prolapse 03/22/2017 Shortness of breath 03/22/2017 Sleep apnea, unspecified 03/22/2017 Immunizations * INFLUENZA(Given 10/21/2021, 08/09/2020) Social History Tobacco Use Types Packs/Day Years Used Date Smoking Tobacco: Never Smokeless Tobacco: Never Alcohol Use Standard Drinks/Week Comments No 0 (1 standard drink = 0.6 oz pur e alcohol) Sex and Gender Information Value Date Recorded Sex Assigned at Not on file Gender Identity Not on file Sexual Orientation Not on file
--- OUTSIDE RECORDS SUMMARY | 2024-10-26 08:28 | XMS_ITS | Data Portability ---
[facility] Address [address] [place] [address] Care Team Providers Care Manager Industrial Name Role Phone HADDAD, HEATHER Primary Care Provider Unavailabl e Assessment No assessment recorded. Plan of Treatment Reminders Order Date Submit Date Provider Last Modified By Organization Details Last Modified Time Details Appointments None recorde d. Lab vitamin D, 25-hydr oxy, total, serum 2022 023 [place] [facility], [address] [facility], [facility], [place], [address], 3 08:27:15 TSH, ultra-s ensitiv e, serum 2022 023 [place] [facility], [address], [place], [address], 3 08:27:14 CMP, serum or plasma 2022 023 [place] [facility], [address], [place], [address], 3 20:09:55 lipid panel, serum 2022 023 [place] [facility], [address], [place], [address], 3 20:09:54 CBC 2022 023 [place] [facility], [address], [place], [address], 3 20:09:55 TSH, ultra-s ensitiv e, serum 2023 024 [place] [facility], [address], [place], [address], 4 10:37:05 CMP, serum or plasma 2023 024 [facility], [address], [place], [address], 4 03:08:38 lipid panel, serum 2023 024 [place] [facility], [address], [place], [address], 4 03:08:37 CBC 2023 024 [facility], [address], [place], [address], 4 03:08:39 Referral ophthal mologis t referra l 2022 023 [facility], [address] [place], [address], 4 16:09:43 Procedures None recorde d. Surgeries None recorde d. Imaging MAMMO, screeni ng, digital , bilater al 2022 023 [place] [facility], [address] [place], [address], 3 15:28:20 Medication Orders cyclobe nzaprin e 10 mg tablet 2022 023 [facility]armacy #[id number], [address] [place], [address], 3 11:06:16 Nexplan on 68 mg subderm al implant 2022 023 [email or web address]/Pharmacy #[id number], [address] [place], [address], 3 10:59:14 cyclobe nzaprin e 10 mg tablet 2022 023 [id number] [address] [place], [address], 3 10:59:36 bacitra jarvis-davidson ymyxin B 500 unit-10 ,000 unit/gr am eye ointmen t 2022 023 [email or web address] [facility]/Pharmacy #[id number], [address] [place], [address], 4 11:02:00 cyclobe nzaprin e 10 mg tablet 2023 024 [id number] [address] [place], [address], 4 11:30:28 metopro lol succina te ER 50 mg tablet, extende d release 24 hr 2023 024 [id number] [place], [address], 4 00:05:32 cyclobe nzaprin e 10 mg tablet 2023 024 [id number] [address] [place], [address], 4 11:45:49 metopro lol succina te ER 50 mg tablet, extende d release 24 hr [address]/Pharmacy #[id number], [address] [place], [address], 4 13:56:43 Patient TargetsNo targets recorded. Patient Instructions Encounter Date Encounter Id Patient Instructions Last Modified By Organization Details Last Modified Time 04/19/2023 [id number] headache: care instructions [email or web address] Not available 04/19/2023 11:06:14 learning about high blood pressure Not available 04/19/2023 11:06:14 seasonal allergies: care instructions Not available 04/19/2023 11:06:14 Check blood pressure daily and record findings; bring to F/U appointment. [place] blood pressure is the top number below 140 and the bottom number below 90. If you experience any side effects of medication, call the office. Follow a low salt diet, drink at least 8-10 8oz glasses of water a day, exercise most days of the week. Not available 04/19/2023 11:00:20 f/u 6 months DWP barriers to care: none Not available 04/19/2023 11:08:24 06/17/2023 [id number] mammogram: about this test vahe Not available 06/17/2023 10:59:14 10/18/2023 [id number] headache: care instructions Not available 10/18/2023 10:59:18 learning about high blood pressure Not available 10/18/2023 10:59:18 seasonal allergies: care instructions Not available 10/18/2023 10:59:18 Check blood pressure daily and record findings; bring to F/U appointment. [place] blood pressure is the top number below 140 and the bottom number below 90. If you experience any side effects of medication, call the office. Follow a low salt diet, drink at least 8-10 8oz glasses of water a day, exercise most days of the week. Not available 10/18/2023 10:54:49 f/u 6 months DWP barriers to care: none Not available 10/18/2023 10:56:36 04/24/2024 [id number] headache: care instructions Not available 04/24/2024 11:30:09 learning about high blood pressure Not available 04/24/2024 11:30:08 seasonal allergies: care instructions Not available 04/24/2024 11:30:08 Check blood pressure two or three times per week and record findings; bring to F/U appointment. [place] blood pressure is the top number below 140 and the bottom number below 90. If you experience any side effects of medication, call the office. Follow a low salt diet, drink at least 8-10 8oz glasses of water a day, exercise most days of the week. Not available 04/24/2024 11:30:14 follow up in 4 months Not available 04/24/2024 11:30:19 07/31/2024 [id number] headache: care instructions Not available 07/31/2024 11:45:47 learning about high blood pressure Not available 07/31/2024 11:45:47 seasonal allergies: care instructions [email or web address] Not available 07/31/2024 11:45:46 Check blood pressure two or three times per week and record findings; bring to F/U appointment. [place] blood pressure is the top number below 140 and the bottom number below 90. If you experience any side effects of medication, call the office. Follow a low salt diet, drink at least 8-10 8oz glasses of water a day, exercise most days of the week. Not available 07/31/2024 11:42:48 follow up in 6 months Not available 07/31/2024 11:45:56 Reason for Referral Director Cardiology Referral for Allergic conjunctivitis of bilateral eyes Referring Physician: Heather Haddad, Family Medicine, Encounter Date: 10/18/2023 Results Created Date Observation Date Name Description Value Unit Range Abnormal Flag Note LastModifiedBy Organization Detail LastModifiedTime 10/18/2010/18/2023 LIPID PANEL cholesterol, total 205 mg/dL 100-19 9 above high normal Not Available [facility] Department [address] [place], [address], 10/18/2023 20:09:54 10/18/20 23 10/18/2023 LIPID PANEL triglyceride s 109 mg/dL 0-149 Not Available [facility] Department [address] [place], [address], 10/18/2023 20:09:54 10/18/20 23 10/18/2023 LIPID PANEL HDL cholesterol 68 mg/dL 40-999 Not Available [facility] Department [address] [place] [address], [address], 10/18/2023 20:09:54 10/18/20 23 10/18/2023 LIPID PANEL VLDL cholesterol michael 22 mg/dL 5-40 Not Available [facility] Department [address] [place] [address], [address], 10/18/2023 20:09:54 10/18/20 23 10/18/2023 LIPID PANEL LDL chol calc (nih) 131 mg/dL 0-99 above high normal Not Available [facility] Department [address] [place] [address], [address], 10/18/2023 20:09:54 10/18/20 23 10/18/2023 COMP. METAB OLIC PANEL (14) glucose 86 mg/dL 70-99 Not Available [facility] Department [address] [place] [address], [address], 10/18/2023 20:09:55 10/18/20 23 10/18/2023 COMP. METAB OLIC PANEL (14) BUN 8 mg/dL 6-24 Not Available [facility] Department [address] [place] [address], [address], 10/18/2023 20:09:55 10/18/20 23 10/18/2023 COMP. METAB OLIC PANEL (14) creatinine 0.66 mg/dL 0.76-1 .27 below low normal Not Available [facility] Department [address] [place] [address], [address], 10/18/2023 20:09:55 10/18/20 23 10/18/2023 COMP. METAB OLIC PANEL (14) eGFR 110 >=60 Units for eGFR value s are mL/mi n/1.7 3 The eGFR Calcu latio n has not been valid ated for patie nts under the age of 18. If test resul ts are displ ayed for a patie nt under the age of 18, disre juaquin that value . Not Available [facility] Department [address] [place] [address], [address], 10/18/2023 20:09:55 10/18/20 23 10/18/2023 COMP. METAB OLIC PANEL (14) BUN/creatini ne ratio 12 - Not Available [facility] Department [address] [place], [address], 10/18/2023 20:09:55 10/18/20 23 10/18/2023 COMP. METAB OLIC PANEL (14) sodium 141 mmol/ L 134-14 4 Not Available [facility] Department [address] [place], [address], 10/18/2023 20:09:55 10/18/20 23 10/18/2023 COMP. METAB OLIC PANEL (14) potassium 4.1 mmol/ L 3.5-5. 2 Not Available [facility] Department [address] [place], [address], 10/18/2023 20:09:55 10/18/20 23 10/18/2023 COMP. METAB OLIC PANEL (14) chloride 101 mmol/ L 96-106 Not Available [facility] Department [address] [place], [address], 10/18/2023 20:09:55 10/18/20 23 10/18/2023 COMP. METAB OLIC PANEL (14) carbon dioxide, total 26 mmol/ L 20-29 Not Available [facility] Department [address] [place], [address], 10/18/2023 20:09:55 10/18/20 23 10/18/2023 COMP. METAB OLIC PANEL (14) calcium 9.6 mg/dL 8.7-10 .2 Not Available [facility] Department [address] [place], [address], 10/18/2023 20:09:55 10/18/20 23 10/18/2023 COMP. METAB OLIC PANEL (14) protein, total 7.1 g/dL 6.0-8. 5 Not Available [facility] Department [address] [place], [address], 10/18/2023 20:09:55 10/18/20 23 10/18/2023 COMP. METAB OLIC PANEL (14) albumin 4.7 g/dL 3.9-4. 9 Not Available [facility] Department [address] [place], [address], 10/18/2023 20:09:55 10/18/20 23 10/18/2023 COMP. METAB OLIC PANEL (14) globulin, total 2.4 g/dL 1.5-4. 5 Not Available [facility] Department [address] [place], [address], 10/18/2023 20:09:55 10/18/20 23 10/18/2023 COMP. METAB OLIC PANEL (14) A/G ratio 2.0 1.2-2. 2 Not Available [facility] Department [address] [place], [address], 10/18/2023 20:09:55 10/18/20 23 10/18/2023 COMP. METAB OLIC PANEL (14) bilirubin, total 0.6 mg/dL 0.0-1. 2 Not Available [facility] Department [address] [place], [address], 10/18/2023 20:09:55 10/18/20 23 10/18/2023 COMP. METAB OLIC PANEL (14) alkaline phosphatase 62 IU/L 44-121 Not Available [facility] Department [address] [place], [address], 10/18/2023 20:09:55 10/18/20 23 10/18/2023 COMP. METAB OLIC PANEL (14) AST (SGOT) 17 IU/L 0-40 Not Available [facility] Department [address] [place], [address], 10/18/2023 20:09:55 10/18/20 23 10/18/2023 COMP. METAB OLIC PANEL (14) ALT (SGPT) 18 IU/L 0-32 Not Available [facility] Department [address] [place], [address], 10/18/2023 20:09:55 10/18/20 23 10/18/2023 CBC, NO DIFFE RENTI AL/PL ATELE T WBC 7.4 x10e3 /uL 3.4-10 .8 Not Available [facility] Department [address] [place], [address], 10/18/2023 20:09:55 10/18/20 23 10/18/2023 CBC, NO DIFFE RENTI AL/PL ATELE T RBC 4.52 x10e6 /uL 3.77-5 .28 Not Available [facility] Department [address] [place], [address], 10/18/2023 20:09:55 10/18/20 23 10/18/2023 CBC, NO DIFFE RENTI AL/PL ATELE T hemoglobin 13.9 g/dL 11.1-1 5.9 Not Available [facility] Department [address] [place], [address], 10/18/2023 20:09:55 10/18/20 23 10/18/2023 CBC, NO DIFFE RENTI AL/PL ATELE T hematocrit 42.3 % 34.0-4 6.6 Not Available [facility] Department [address] [place], [address], 10/18/2023 20:09:55 10/18/20 23 10/18/2023 CBC, NO DIFFE RENTI AL/PL ATELE T MCV 94 fL 79-97 Not Available [facility] Department [address] [place], [address], 10/18/2023 20:09:55 10/18/20 23 10/18/2023 CBC, NO DIFFE RENTI AL/PL ATELE T MCH 30.8 pg 26.6-3 3.0 Not Available [facility] Department [address] [place], [address], 10/18/2023 20:09:55 10/18/20 23 10/18/2023 CBC, NO DIFFE RENTI AL/PL ATELE T MCHC 32.9 g/dL 31.5-3 5.7 Not Available [facility] Department [address] [place], [address], 10/18/2023 20:09:55 10/18/20 23 10/18/2023 CBC, NO DIFFE RENTI AL/PL ATELE T RDW 11.9 % 11.5-1 4.5 Not Available [facility] Department [address] [place], [address], 10/18/2023 20:09:55 10/18/20 23 10/18/2023 CBC, NO DIFFE RENTI AL/PL ATELE T NRBC 0 % 0-0 Not Available [facility] Department [address] [place], [address], 10/18/2023 20:09:55 10/18/20 23 10/19/2023 TSH RFX ON ABNOR MAL TO FREE T4 TSH 1.880 uIU/m L 0.450- 4.500 Not Available [facility] ([facility]) [address] [facility], [place], [address], 10/19/2023 08:27:14 10/18/20 23 10/19/2023 VITAM IN D, 25-HY DROXY vitamin D, 25-hydroxy 43.5 NG/mL 30.0-1 00.0 Vitam in D defic iency has been defin ed by the Insti joseph of Medic ine and an Endoc adenike Sociaxel ty pract ice guide line as a level of serum 25-OH vitam in D less than 20 ng/mL (1,2) . The Endoc rine Socie ty went on to furth er defin e vitam in D insuf ficie ncy as a level betwe en 21 and 29 ng/mL (2). 1. IOM (Inst itute of Medic ine). 2010. Dieta ry refer ence intak es for calci um and D. Warren young [place]: The [facility] Press . 2. Holjoshua k MF, Binkl ey [place], Bisch off-F errar i PEREIRA, et al. Evalu ation , treat ment, and preve ntion of vitam in D defic iency : an Endoc rine Socie ty clini michael pract ice guide line. JCEM. 2010; 96(7) :1911 -30. Not Available [facility] ([facility]) [address] [facility], [place], [address], 10/19/2023 08:27:15 06/06/20 24 06/06/2024 COLOG UARD cologuard result reportable NEGATI VE negati ve normal NEGAT EMILY TEST RESUL T. A negat emily Colog uard resul t indic ates a low likel ihood that a color ectal cance r (CRC) or advan tylor adeno ma (cami omato us polyp s with more advan tylor pre-m align ant featu res) is prese nt. The chanc e that a perso n with a negat emily Colog uard test has a color ectal cance r is less than 1 in 1500 (nega tive predi ctive value >99.9 %) or has an advan tylor adeno ma is less than 5.3% (nega tive predi ctive value 94.7% ). These data are based on a prosp ectiv e cross -sect ional study of 10,00 0 indiv idual s at [place] risk for color ectal cance r who were scree marianna with both Colog uard and colon oscop y. (Feliberto Ramon al, N Engl J Med 2014; 370(1 4):12 86-12 97) The talia l value (refe rence range ) for this assay is negat emily. COLOG UARD RE-SC ROSARIO MADRID RECOM MENDA TION: Perio dic color ectal cance r scree damon is an impor tant part of preve ntive healt hcare for asymp tomat ic indiv idual s at [facility] risk for color ectal cance r. Follo wing a negat emily Colog uard resul t, the Ameri can Cance r Socie ty and U.S. Multi -Soci ety Task Force scree damon guide lines recom mend a Colog uard re-sc reemikie ng inter shakira of 3 years . Refer ences : Ameri can Cance r Socie ty Guide line for Color ectal Cance r Scree damon: https ://lee w.can cer.o rg/ca ncer/ colon -rect al-ca ncer/ detec tion- diagn osis- stagi ng/ac s-rec ommen datio ns.ht ml.; Calos RENAE, Smooth SALMON, Chaparrita LARA, Color ectal Cance r Scree damon: Recom menda tions for Physi cians and Patie nts from the U.S. Multi -Soci ety Task Force on Color ectal Cance r Scree damon , Am J Gastr oente rolog y 2017; 112:1 016-1 030. TEST DESCR IPTIO N: [place] site algor ithmi c jhoan sis of stool DNA-b iorobert kers with hemog lobin immun oassa y. Quant itati ve value s of indiv idual bioma rkers are not repor table and are not assoc iated with indiv idual bioma rker resul t refer ence range s. Colog uard is inten ded for color ectal cance r scree damon of adult s of eithe r sex, 45 years or older , who are at [facility] for color ectal cance r (CRC) . Colog uard has been appro jodi for use by the U.S. FDA. The perfo rmanc e of Colog uard was estab lishe d in a cross secti onal study of [facility] adult s aged 50-84 . Colog uard perfo rmanc e in patie nts ages 45 to 49 years was estim ated by sub-g roup jhoan sis of near- age group s. Colon oscop ies perfo rmed for a posit emily resul t may find as the most clini dariel signi fican t lesio n: color ectal cance r [4.0% ], advan tylor adeno ma (incl uding sessi le eamon jerry polyp s great er than or equal to 1cm diame ter) [20%] or non- advan tylor adeno ma [31%] ; or no color ectal neopl osiel [45%] . These estim ates are deriv ed from a prosp ectiv e cross -sect ional scree damon study of 0 indiv idual s at [facility] risk for color ectal cance r who were scree marianna with both Colog uard and colon oscop y. (Feliberto Ramon al, N Engl J Med 2014; 370(1 4):12 86-12 97.) Colog uard may produ ce a false negat emily or false posit emily resul t (no color ectal cance r or preca ncero us polyp prese nt at colon oscop y follo w up). A negat emily Colog uard test resul t does not guara ntee the absen ce of CRC or advan tylor adeno ma (pre- cance r). The curre nt Colog uard scree damon inter shakira is every 3 years . (Amer ican Cance r Socie ty and U.S. Multi -Soci ety Task Force ). Colog uard perfo rmanc e data in a 0 patie nt pivot al study using colon oscop y as the refer ence metho d can be acces sed at the follo wing locat ion: www.e xactl abs.c om/re liz . Addit ional descr iptio n of the Colog uard test proce ss, warni ngs and preca ution s can be found at www.c eitan hancockd.c om. Not Available [facility] (Cologuard Orders Only) [address], [place], [address], 06/10/2024 08:02:51 07/31/2008/01/2024 LIPID PANEL cholesterol, total 202 mg/dL 100-19 9 above high normal Not Available [facility] Department [address] [place] [address], [address], 08/01/2024 03:08:37 07/31/2008/01/2024 LIPID PANEL triglyceride s 179 mg/dL 0-149 above high normal Not Available [facility] Department [address] [place] [address], [address], 08/01/2024 03:08:37 07/31/2008/01/2024 LIPID PANEL HDL cholesterol 57 mg/dL 40-999 Not Available [facility] Department [address] [place] [address], [address], 08/01/2024 03:08:37 07/31/2008/01/2024 LIPID PANEL VLDL cholesterol michael 36 mg/dL 5-40 Not Available [facility] Department [address] [place] [address], [address], 08/01/2024 03:08:37 07/31/2008/01/2024 LIPID PANEL LDL chol calc (nih) 135 mg/dL 0-99 above high normal Not Available [facility] Department [address] [place] [address], [address], 08/01/2024 03:08:37 07/31/2008/01/2024 COMP. METAB OLIC PANEL (14) glucose 86 mg/dL 70-99 Not Available [facility] Department [address] [place] [address], [address], 08/01/2024 03:08:38 07/31/2008/01/2024 COMP. METAB OLIC PANEL (14) BUN 6 mg/dL 6-24 Not Available [facility] Department [address] [place] [address], [address], 08/01/2024 03:08:38 07/31/2008/01/2024 COMP. METAB OLIC PANEL (14) creatinine 0.67 mg/dL 0.76-1 .27 below low normal Not Available [facility] Department [address] [place] [address], [address], 08/01/2024 03:08:38 07/31/20 24 08/01/2024 COMP. METAB OLIC PANEL (14) eGFR 110 >=60 Units for eGFR value s are mL/mi n/1.7 3 The eGFR Calcu latio n has not been valid ated for patie nts under the age of 18. If test resul ts are displ ayed for a patie nt under the age of 18, disre juaquin that value . Not Available [facility] Department [address] [place] [address], [address], 08/01/2024 03:08:38 07/31/20 24 08/01/2024 COMP. METAB OLIC PANEL (14) BUN/creatini ne ratio 9 9-23 Not Available [facility] Department [address] [place] [address], [address], 08/01/2024 03:08:38 07/31/20 24 08/01/2024 COMP. METAB OLIC PANEL (14) sodium 136 mmol/ L 134-14 4 Not Available [facility] Department [address] [place] [address], [address], 08/01/2024 03:08:38 07/31/20 24 08/01/2024 COMP. METAB OLIC PANEL (14) potassium 4.3 mmol/ L 3.5-5. 2 Not Available [facility] Department [address] [place] [address], [address], 08/01/2024 03:08:38 07/31/20 24 08/01/2024 COMP. METAB OLIC PANEL (14) chloride 100 mmol/ L 96-106 Not Available [facility] Department [address] [place] [address], [address], 08/01/2024 03:08:38 07/31/20 24 08/01/2024 COMP. METAB OLIC PANEL (14) carbon dioxide, total 24 mmol/ L 20-29 Not Available [facility] Department [address] [place], [address], 08/01/2024 03:08:38 07/31/20 24 08/01/2024 COMP. METAB OLIC PANEL (14) calcium 9.3 mg/dL 8.7-10 .2 Not Available [facility] Department [address] [place], [address], 08/01/2024 03:08:38 07/31/2008/01/2024 COMP. METAB OLIC PANEL (14) protein, total 7.2 g/dL 6.0-8. 5 Not Available [facility] Department [address] [place], [address], 08/01/2024 03:08:38 07/31/2008/01/2024 COMP. METAB OLIC PANEL (14) albumin 4.6 g/dL 3.9-4. 9 Not Available [facility] Department [address] [place], [address], 08/01/2024 03:08:38 07/31/20 24 08/01/2024 COMP. METAB OLIC PANEL (14) globulin, total 2.6 g/dL 1.5-4. 5 Not Available [facility] Department [address] [place], [address], 08/01/2024 03:08:38 07/31/20 24 08/01/2024 COMP. METAB OLIC PANEL (14) A/G ratio 2.0 1.2-2. 2 Not Available [facility] Department [address] [place], [address], 08/01/2024 03:08:38 07/31/20 24 08/01/2024 COMP. METAB OLIC PANEL (14) bilirubin, total 0.7 mg/dL 0.0-1. 2 Not Available [facility] Department [address] [place], [address], 08/01/2024 03:08:38 07/31/2008/01/2024 COMP. METAB OLIC PANEL (14) alkaline phosphatase 61 IU/L 44-121 Not Available [facility] Department [address] [place], [address], 08/01/2024 03:08:38 07/31/20 24 08/01/2024 COMP. METAB OLIC PANEL (14) AST (SGOT) 22 IU/L 0-40 Not Available [facility] Department [address] [place], [address], 08/01/2024 03:08:38 07/31/2008/01/2024 COMP. METAB OLIC PANEL (14) ALT (SGPT) 26 IU/L 0-32 Not Available [facility] Department [address] [place], [address], 08/01/2024 03:08:38 07/31/20 24 07/31/2024 CBC, PLATE LET, NO DIFFE RENTI AL WBC 5.4 x10e3 /uL 3.4-10 .8 Not Available [facility] Department [address] [place], [address], 08/01/2024 03:08:38 07/31/20 24 07/31/2024 CBC, PLATE LET, NO DIFFE RENTI AL RBC 4.30 x10e6 /uL 3.77-5 .28 Not Available [facility] Department [address] [place], [address], 08/01/2024 03:08:38 07/31/2007/31/2024 CBC, PLATE LET, NO DIFFE RENTI AL hemoglobin 13.6 g/dL 11.1-1 5.9 Not Available [facility] Department [address] [place], [address], 08/01/2024 03:08:38 07/31/2007/31/2024 CBC, PLATE LET, NO DIFFE RENTI AL hematocrit 41.0 % 34.0-4 6.6 Not Available [facility] Department [address] [place], [address], 08/01/2024 03:08:38 07/31/2007/31/2024 CBC, PLATE LET, NO DIFFE RENTI AL MCV 95 fL 79-97 Not Available [facility] Department [address] [place], [address], 08/01/2024 03:08:38 07/31/2007/31/2024 CBC, PLATE LET, NO DIFFE RENTI AL MCH 31.6 pg 26.6-3 3.0 Not Available [facility] Department [address] [place], [address], 08/01/2024 03:08:38 07/31/2007/31/2024 CBC, PLATE LET, NO DIFFE RENTI AL MCHC 33.2 g/dL 31.5-3 5.7 Not Available [facility] Department [address] [place], [address], 08/01/2024 03:08:38 07/31/2007/31/2024 CBC, PLATE LET, NO DIFFE RENTI AL RDW 12.0 % 11.5-1 4.5 Not Available [facility] Department [address] [place], [address], 08/01/2024 03:08:38 07/31/2007/31/2024 CBC, PLATE LET, NO DIFFE RENTI AL platelets 234 x10e3 /uL 150-45 0 Mean Plate let Volum e 11.0 fL 8.9-1 2.7 N Not Available [facility] Department [address] [place], [address], 08/01/2024 03:08:38 07/31/2007/31/2024 CBC, PLATE LET, NO DIFFE RENTI AL NRBC 0 % 0-0 Not Available [facility] Department [address], [place], [address], 08/01/2024 03:08:38 07/31/20 24 08/01/2024 TSH RFX ON ABNOR MAL TO FREE T4 TSH 2.880 uIU/m L 0.450- 4.500 Not Available [facility] ([facility]) [address] [facility], [place], [address], 08/01/2024 10:37:05 08/24/20 23 08/23/2023 MAMMO , scree damon, digit al, bilat eral No observ ation record ed. [email or web address] [facility] ([facility] Scheduling [address] [place], [address], 08/24/2023 15:48:18 Result Notes None recorded. Problems Name Problem SNOMED Code Status Onset Date Resolution Date Notes Provider Name and Address Organization Details Recorded Time Vitamin D deficien cy 01426982 Active 2017 Not Available [facility] 3 09:31:13 Posterio r rhinorrh ea 73951105 Active 2017 Not Available [facility] 3 09:31:13 Bilatera l shoulder joint pain 63973711535 266247 Active 2019 Not Available [facility] 3 09:31:13 Numbness and tingling sensatio n of skin 27685955988 2 Active 2020 Not Available [facility] 3 09:31:13 Allergic conjunct ivitis of bilatera l eyes 34334367524 9102 Active 2022 Heathre Haddad APN, DIRECTOR COUNSELING BUREAU-C Attn: Accounting ,[address] [facility], [place], [address] , [place] - [place] 3 10:58:50 Environm ental allergy 180736262 Completed 02/02/2016 Amy duron [place] 6 09:56:41 Abdomina l pain 93289191 Completed 02/02/2016 Amy duron [place] [facility] 6 09:56:41 Gastroes ophageal reflux disease 834778164 Active Not Available [facility] 3 09:31:13 Numbness and tingling sensatio n of skin 12321104551 2 Completed 02/02/2016 Heather Haddad APN, FNP-C Attn: Accounting ,[address] [place], [address] , [place] [facility] 1 17:32:26 Breast lump 67994738 Completed 02/02/2016 Amy [place] [facility] 6 09:56:41 Breast lump symptom Completed 02/02/2016 [place] [facility] 6 09:56:41 Backache 508132452 Completed 02/02/2016 [place] [facility] 6 09:56:41 Upper respirat ory infectio n 32773736 Completed 02/02/2016 [place] [facility] 6 09:56:41 Spasm of back muscles 687789852 Completed 02/02/2016 [place] [facility] 6 09:56:41 Type B viral hepatiti s 45836381 Active Not Available [facility] 3 09:31:13 Bilatera l knee pain Active Not Available [facility] 3 09:31:13 Essentia l hyperten cory 90719697 Active 2015 see cardio Not Available [facility] 3 09:31:13 Shoulder pain 03561101 Completed 201605/08/2019 DIEGO [place], [place] [facility] 9 08:55:12 Bacteria l conjunct ivitis 813692265 Completed 201609/06/2017 Heather Haddad APN, FNP-C Attn: Accounting ,[address] [place], [address] , [place] [facility] 7 08:44:50 Seasonal allergic rhinitis 504555741 Active 2016 Not Available [facility] 3 09:31:13 Mitral valve regurgit ation 47415657 Active 2016 mild Not Available [facility] 3 09:31:13 Tricuspi d valve regurgit ation 237119469 Active 2016 mild Not Available [facility] 3 09:31:13 Pulmonic valve regurgit ation 35845408 Active 2016 mild; on echo April 2017 Not Available [facility] 3 09:31:13 Headache 71231066 Active 2016 Not Available [facility] 3 09:31:13 Notes:Liver CheckUP Problem Notes None recorded. Procedures Surgical History Date Name Laterality Status Provider Name and Address Organization Details Recorded Time 3 Most Recent Mammogram completed CASSIUS [place] 08/24/2023 15:48:02 3 Control Implant Removal completed CINTIA Landavered Attn: Accounting,[address] [place], [address], [place] [facility] 06/17/2023 10:36:18 3 Control Implant Insertion completed CINTIA Landaverde Attn: Accounting,[address] [place], [address], [place] [facility] 06/17/2023 10:36:16 0 Control Implant Insertion completed CINTIA Landaverde Attn: Accounting,[address] [place], [address], [place] [facility] 08/19/2020 10:04:49 0 IUD Removal completed CINTIA Landaverde Attn: Accounting,[address] [place], [address], [place] [facility] 08/19/2020 10:05:02 8 IUD Removal completed Opal Nuñez MD Attn: Accounting,[address] [facility], [place], [address], [place] [facility] 12/28/2017 11:26:06 8 IUD Insertion completed Opal Nuñez MD Attn: Accounting,[address] [facility], [place], [address], [place] [facility] 12/28/2017 11:26:17 7 IUD Insertion completed Opal Nuñez MD Attn: Accounting,[address] [facility], [place], [address], [place] [facility] 09/14/2017 14:15:36 7 IUD Insertion completed Opal Nuñez MD Attn: Accounting,[address] [facility], [place], [address], [place] [facility] 08/18/2017 09:53:37 7 Control Implant Removal completed Opal Nuñez MD Attn: Accounting,[address] [facility], [place], [address], [place] [facility] 08/10/2017 10:04:42 7 Date of Last Pap Smear completed Cecilia العراقي RN [facility] SI 05/30/2023 09:37:48 6 Control Implant Removal completed Opal Nuñez MD Attn: Accounting,[address] [facility], [place], [address], [facility] - [facility] 02/11/2016 19:43:57 6 Control Implant Insertion completed Opal Nuñez MD Attn: Accounting,[address] [place], [address], [place] [facility] 02/11/2016 19:43:57 5 Caesarean Section completed Suzi Gould MA [facility] SI 10/08/2014 08:48:23 4 Caesarean Section completed Suzi Gould [place] - [facility] 10/08/2014 08:48:23 Imaging Results Imaging Date Name Status LastModified by [facility] Details LastModified Time 08/23/2023 MAMMO, screening, digital, bilateral completed [email or web address] [facility] ([facility]) Scheduling [address] [place], [address], 08/24/2023 15:48:18 Procedure Notes None recorded. Medical Equipment None Reported. Allergies Allergen ID Allergen Name Allergen Category Reaction Reaction Severity Criticality Documentation Date Start Date Code Code System Note Provider Name and Address Organization Details Recorded Time 48744 apple extract food facial swelling Not available Not available 07/19/2017 24408 65 RxNorm Heather Haddad APN, DIRECTOR COUNSELING BUREAU-C Attn: Accountin g,[address] [facility], [place], [address], [place] 7 10:06:38 43583 plum preparati on food facial swelling Not available Not available 07/19/2017 13537 7 RxNorm Heather Haddad APN, DIRECTOR COUNSELING BUREAU-C Attn: Accountin g,[address] [facility], [place], [address], [place] [facility] 7 10:06:56 No known drug allergies Medications [...] by intraute rine route. 09/14 completed Lot# [id number] Exp: 03/2020 Not Available Not Available Not [...] by intraute rine route. 08/19 completed Lot# [id number] Exp:2021 Not Available Not Available Not Available [...] Not Available Not Available Not Available Afluria 2854-9928 (PF) 45 mcg (15 mcg x 3)/0.5 mL intramusc ular syringe 08/10 completed Not Available Not Available Not Available Vitals Date Recorded Body height Body mass index (BMI) Body weight Oxygen saturation Oxygen saturation in Arterial blood by Pulse oximetry Heart rate Respiratory rate Body temperature Systolic blood pressure Diastolic blood pressure Provider Name and Address Organization Details Last Updated DateTime 3 165.1 cm 21.3 kg/m2 60259.8 2 g 95 % 95 % 88 /min 16 /min 97.3 [degF] 120 mm[Hg] 84 mm[Hg] Lucita Ring [place] - [facility] 3 10:43:05 Date Recorded Body height Body mass index (BMI) Body weight Heart rate Respiratory rate Systolic blood pressure Diastolic blood pressure Provider Name and Address Organization Details Last Updated DateTime 3 165.1 cm 20.2 kg/m2 61579.4 8 g 108 /min 16 /min 131 mm[Hg] 86 mm[Hg] Winter [place] - [facility] 3 10:08:20 Date Recorded Body height Body mass index (BMI) Body weight Oxygen saturation Oxygen saturation in Arterial blood by Pulse oximetry Heart rate Respiratory rate Body temperature Systolic blood pressure Diastolic blood pressure Provider Name and Address Organization Details Last Updated DateTime 3 165.1 cm 21 kg/m2 68455.6 4 g 99 % 99 % 100 /min 16 /min 98 [degF] 130 mm[Hg] 86 mm[Hg] Lucita Ring [facility] 3 10:45:09 Date Recorded Body height Body mass index (BMI) Body weight Oxygen saturation Oxygen saturation in Arterial blood by Pulse oximetry Respiratory rate Body temperature Heart rate Systolic blood pressure Diastolic blood pressure Provider Name and Address Organization Details Last Updated DateTime 4 165.1 cm 20.6 kg/m2 11646.4 5 g 98 % 98 % 16 /min 98.4 [degF] 90 /min 122 mm[Hg] 90 mm[Hg] Lucita Ring [facility] 4 11:04:19 Date Recorded Body height Body mass index (BMI) Body weight Oxygen saturation Oxygen saturation in Arterial blood by Pulse oximetry Heart rate Respiratory rate Body temperature Systolic blood pressure Diastolic blood pressure Provider Name and Address Organization Details Last Updated DateTime 4 165.1 cm 22 kg/m2 60734.1 9 g 99 % 99 % 80 /min 16 /min 97.5 [degF] 122 mm[Hg] 86 mm[Hg] Lucita Ring [facility] SI 4 11:17:37 Social History Question Answer Notes LastModified by Organizat ion Details LastModified Time Tobacco Smoking Status Never Smoker Suzi Gould MA [facility], [facility] 10/08/2014 08:48:23 Do You Have An Advance Directive? No Information not available 05/08/2019 What Is Your Level Of Alcohol Consumption? None [email or web address] Information not available 10/08/2014 Are You Blind [...] Type Of Diet Are You Following? REGULAR [email or web address] Information not available 10/08/2014 Which Illicit Or [...] Anxious, Or Unable To Sleep At Night)? [id number] Information not available 06/15/2021 Do You Use Any Illicit Or Recreational Drugs? No [email or web address] Information not available 08/24/2022 Do You Use [...] Other Forms Of Tobacco Or Nicotine? No [email or web address] Information not available 10/29/2021 Sex: Female Functional Status Question Answer Note LastModified by Organizat ion Details LastModified Time Are you able to care for yourself? Yes Information not available 06/15/2021 What is your exercise level? Occasional [email or web address] Information not available 10/08/2014 Mental Status None recorded. Family History Relationship Description Onset Age of this Age Resolved Age Notes LastModified by Organization Details LastModified Time Mother History of liver disease [email or web address] Not available 2015 09:56:42 Medical History Condition Response Coronary Artery Disease N Other N Atrial Fibrillation N High Blood Pressure N Breast Cancer N Blood Clots N COPD N Depression N Lung Disease N Breast Problem N Anesthesia Complications N Headaches/Migraines Y Anxiety Disorder N Muscle, Joint, or Bone Problems N Polyps N Infertility N Acid Reflux (GERD) Y Cancer N Stroke N Endometriosis N High Cholesterol N Liver Disease Y Headaches Y Thyroid Problems N Kidney or Bladder Problems N GI Problems N Acne N Eating Disorder N Skin Problems N Anemia N Heart Attack (HI) N Diabetes N Ovarian Cancer N Blood Transfusions N Seizures/Epilepsy N Abuse/Domestic Violence N Asthma N Allergies N Hepatitis Y Heart Disease N Pre-Eclampsia N Heart Failure N Osteoporosis N Gynecological History Statement/Question Response Flow Light [...] split virus, quadrivalent, PF 0 completed Heather Haddad, BLACK OFF WORKER, DIRECTOR COUNSELING BUREAU-C Attn: Accounting,[address] [place], [address] [place] [address], [facility] - SI 06/12/2023 21:49:37 zoster recombinant 2 completed Heather Haddad BLACK OFF WORKER, DIRECTOR COUNSELING BUREAU-C Attn: Accounting,[address] [place], [address], [facility] - SI 06/12/2023 21:49:37 COVID-19, mRNA, LNP-S, PF, 30 mcg/0.3 mL dose 1 completed Heather Haddad, BLACK OFF WORKER, DIRECTOR COUNSELING BUREAU-C Attn: Accounting,[address] [place], [address], [facility] - [facility] 06/12/2023 21:49:37 Influenza, split virus, trivalent, preservative 3 completed Heather Haddad, BLACK OFF WORKER, DIRECTOR COUNSELING BUREAU-C Attn: Accounting,[address] [place], [address], [place] [facility] 06/12/2023 21:49:37 Influenza, split virus, quadrivalent, PF 1 completed Heather Haddad, BLACK OFF WORKER, DIRECTOR COUNSELING BUREAU-C Attn: Accounting,[address] [facility], [place], [place], [address] [place] [address], [facility] - [facility] 06/12/2023 21:49:37 COVID-19, mRNA, LNP-S, PF, 30 mcg/0.3 mL dose 1 completed Heather Haddad, BLACK OFF WORKER, DIRECTOR COUNSELING BUREAU-C Attn: Accounting,[address] [facility], [place], [address] [place] [address], [facility] - SIF 06/12/2023 21:49:37 Influenza, split virus, trivalent, preservative 4 completed Heather Haddad, BLACK OFF WORKER, DIRECTOR COUNSELING BUREAU-C Attn: Accounting,[address] [facility], [place], [address] [place] [address], [facility] - SIF 06/12/2023 21:49:37 Influenza, split virus, trivalent, PF 5 completed Heather Haddad, BLACK OFF WORKER, DIRECTOR COUNSELING BUREAU-C Attn: Accounting,[address] [facility], [place], [address] [place] [address], [facility] - SIF 06/12/2023 21:49:37 Influenza, split virus, quadrivalent, preservative 6 completed Not Available [facility] 11/17/2019 02:32:32 COVID-19, mRNA, LNP-S, bivalent, PF, 30 mcg/0.3 mL dose 2 completed Heather Haddad, BLACK OFF WORKER, DIRECTOR COUNSELING BUREAU-C Attn: Accounting,[address] [facility], [place], [address] [place] [address], [facility] - [facility] 06/12/2023 21:49:37 Influenza, split virus, quadrivalent, PF 3 completed Heather Haddad, BLACK OFF WORKER, DIRECTOR COUNSELING BUREAU-C Attn: Accounting,[address] [facility], [place], [address] [place] [address], [place] - [facility] 10/18/2023 10:56:51 COVID-19, mRNA, LNP-S, PF, magdy-sucrose, 30 mcg/0.3 mL 4 completed Heather Haddad BLACK OFF WORKER, DIRECTOR COUNSELING BUREAU-C Attn: Accounting,[address] [place], [address] [place] [address], [facility] 07/31/2024 11:44:58 Influenza, MDCK, trivalent, PF 4 completed Heather Haddad BLACK OFF WORKER, DIRECTOR COUNSELING BUREAU-C Attn: Accounting,[address] [place], [address] [place] [address], [facility] SI 07/31/2024 11:44:58 Hep A-Hep B 4 completed Heather Haddad BLACK OFF WORKER, DIRECTOR COUNSELING BUREAU-C Attn: Accounting,[address] [place], [address] [place] [address], [facility] 07/31/2024 11:44:58 Influenza, split virus, quadrivalent, preservative 7 completed Not Available [facility] 11/17/2019 02:33:59 Influenza, split virus, quadrivalent, preservative 8 completed Not Available [facility] 11/17/2019 02:36:00 Influenza, split virus, quadrivalent, preservative 9 completed Not Available [facility] 11/17/2019 02:38:12 Influenza, split virus, quadrivalent, preservative 2 completed Heather Haddad BLACK OFF WORKER, DIRECTOR COUNSELING BUREAU-C Attn: Accounting,[address] [place], [address] [place] [address], [facility] 08/24/2022 17:12:34 Past Encounters Encounter ID Performer Location Encounter Start Date Encounter Closed Date Diagnosis/Indication Diagnosis SNOMED-CT Code Diagnosis ICD10 Code [id number] [facility] (Adult Med) [address] [address] 10/08/2014 08:23:40 10/08/2014 11:06:14 Breast lump symptom 541577635 Infection screening 2896 42124 [id number] Nichole Rico [facility] (Adult Med) [address] [place] [address] 10/22/2014 08:31:33 10/22/2014 10:30:23 Type B viral hepatitis 83559710 [id number] [facility] (Adult Med) [address] [place] [address] 03/18/2015 08:16:25 03/18/2015 08:59:05 Environmental allergy 515387176 Abdominal pain 95155301 Gastroesop hageal reflux disease 386009771 [id number] Romina [facility] (Adult Med) [address] [place] [address] 04/01/2015 08:28:09 04/01/2015 09:10:18 Numbness and tingling sensation of skin 9390171106 02 Abdominal pain 56556576 [id number] Nichole Rico [facility] (Adult Med) [address] [place] [address] 07/28/2015 08:17:30 07/28/2015 09:20:49 Backache 283956612 Upper resp iratory infection 45446159 [id number] [facility] [address] [place] [address] 09/29/2015 10:17:44 09/29/2015 17:53:30 Spasm of back muscles 447284976 M62.830 [id number] Zoie Solishalto (ELECTRONIC SECURITY SPECIALIST) [address] [place] [address] 12/23/2015 09:23:09 12/23/2015 09:59:44 Subcutaneous contraceptive implant present 832173268 Z30.42 [id number] [facility]RON[facility]UR[facility] SPECIALIST[facility] [address] [place] [address] 02/02/2016 08:34:26 02/02/2016 12:28:34 Gynecologic examination 80058654 Z01.419 Venereal d isease screening 193159348 Z11.3 [id number] MD [facility] ([place] [address]) [address] [facility] [place] [address] 02/11/2016 08:48:49 02/11/2016 19:44:45 Contraception care 369760416 Z30.49 [id number] Heather Haddad APN, DIRECTOR COUNSELING BUREAU-C [facility] (Adult Med) [address] [place] [address] 08/10/2016 09:05:29 08/10/2016 11:44:09 Gastroesophageal reflux disease 280322857 K21.0 Bilateral knee pain 1187 564962 5476938 M25.561 M25.562 Adult heal th examination 045579883 Z00.00 Influenza vaccine needed 7393434745 106 Z23 [id number] Heather Haddad APN, FNP-C [facility] (Adult Med) [address] [place] [address] 09/14/2016 09:08:08 09/14/2016 10:43:06 Bilateral knee pain 5344772434 0753302 M25.561 M25.562 Gastroesop hageal reflux disease 235241438 K21.0 [id number] Heather Haddad APN, FNP-C [facility] (Adult Med) [address] [place] [address] 11/03/2016 09:26:51 11/03/2016 11:46:23 Upper respiratory infection 39998853 J06.9 Shoulder pain 79881623 M 25.511 Bilateral knee pain 1187 759111 5627091 M25.561 M25.845 [id number] Heather Haddad APN, FNP-C [facility] (Adult Med) [address] [place] [address] 02/21/2017 08:31:45 02/21/2017 12:04:08 Bacterial conjunctivitis 299914628 H10.9 Seasonal a llergic rhinitis 457318036 J30.2 [id number] DIEGO Rm [facility] ([place] [address]) [address] [facility] [place] [address] 06/17/2017 08:56:05 06/17/2017 10:45:00 Gynecologic examination 92885412 Z01.419 Urinary tr act infectious disease 09524504 N39.0 Pain in pelvis 80660010 R10.2 Venereal d isease screening 298025152 Z11.3 [id number] Heather Haddad APN, FNP-C [facility] (Adult Med) [address] [place] [address] 07/19/2017 09:33:39 07/25/2017 12:18:27 Headache 69155925 R51 Administra tion of influenza vaccine 90041366 Z23 Sinusitis 68328789 J32.9 [id number] MD Jason Rivera ([place] [address]) [address] [facility] [place] [address] 08/10/2017 09:34:57 08/10/2017 10:06:12 Contraception care management 819155015 Z30.9 [id number] MD Jason Rivera ([place] [address]) [address] [facility] [place] [address] 08/18/2017 09:20:47 08/18/2017 09:55:31 Contraception care 640272854 Z30.40 Family familia nning surveillance 169480715 Z30.09 [id number] Heather Haddad APN, DIRECTOR COUNSELING BUREAU-C [facility] (Adult Med) [address] [facility] [place] [address] 09/06/2017 08:20:45 09/07/2017 17:41:18 Essential hypertension 60346278 I10 Gastroesop hageal reflux disease 629917509 K21.0 Headache 98601172 R51 Seasonal a llergic rhinitis 485975053 J30.2 Adult heal th examination 235798805 Z00.00 [id number] MD Jason Rivera ([place] [address]) [address] [facility] [place] [address] 09/14/2017 09:27:59 09/14/2017 14:17:02 Insertion of intrauterine contraceptive device 51446487 Z30.430 Removal of intrauterine device 36541299 Z30.797 [id number] MD Jason Rivera ([place] [address]) [address] [facility] [place] [address] 10/12/2017 09:28:02 10/18/2017 10:19:28 IUD check 872351444 Z30.343 [id number] MD [place] [address] [address] [facility] [place] [address] 12/22/2017 09:19:00 12/22/2017 19:57:26 IUD check 983815903 Z30.854 [id number] MD Jason Rivera ([place] [address]) [address] [facility] [place] [address] 12/28/2017 09:21:57 12/28/2017 11:27:33 Cramping pain 634117821 R52 Removal of intrauterine device 91792053 Z30.432 Insertion of intrauterine contraceptive device 75746269 Z30.615 [id number] MD [facility] ([place] [address]) [address] [facility] [place] [address] 01/18/2018 08:58:36 01/18/2018 09:29:11 Pruritus of vagina 62028278 L29.3 IUD check 292819167 Z30. 025 [id number] Heather Haddad APN, FNP-C [facility] (Adult Med) [address] [facility] [place] [address] 02/06/2018 08:11:51 02/07/2018 08:38:30 Dysuria 19157193 R30.0 Abdominal pain 13709711 R10.9 Migraine 79739120 G43.90 9 Acute urin navid tract infection 602247011 N39.0 [id number] Heather Haddad APN, FNP-C [facility] (Adult Med) [address] [facility] [place] [address] 02/14/2018 09:01:36 02/15/2018 12:49:17 Dysuria 20897369 R30.0 Acute urin navid tract infection 208947748 N39.0 [id number] Heather Haddad APN, FNP-C [facility] (Adult Med) [address] [facility] [place] [address] 02/28/2018 09:21:37 03/01/2018 08:22:33 Headache 30345604 R51 Essential hypertension 80899641 I10 Gastroesop hageal reflux disease 373726838 K21.0 Seasonal a llergic rhinitis 039771663 J30.2 Dysuria 36423745 R30.0 Vitamin D deficiency 347 74916 E55.9 [id number] Heather Haddad APN, FNP-C [facility] (Adult Med) [address] [facility] [place] [address] 04/03/2018 09:16:47 04/03/2018 10:04:52 Dysuria 11908132 R30.0 Headache 16415330 R51 Posterior rhinorrhea 758 13257 R09.82 [id number] Heather Haddad APN, FNP-C [facility] (Adult Med) [address] [place] [address] 05/25/2018 09:20:50 05/29/2018 14:51:58 Abdominal pain 47119639 R10.9 Epigastric pain 08312958 R10.13 [id number] MD Jason Rivera [address] [facility] [place] [address] 06/01/2018 09:34:37 06/05/2018 17:48:36 Pain in pelvis 23639286 R10.2 Acute pelv ic inflammatory disease 005817876 N73.9 [id number] Heather Haddad APN, FNP-C [facility] (Adult Med) [address] [place] [address] 06/12/2018 09:32:37 06/12/2018 14:20:39 Gastroesophageal reflux disease 413495769 K21.0 Shoulder pain 39705276 M 25.350 [id number] MD Jason Rivera [address] [facility] [place] [address] 07/05/2018 08:38:16 07/05/2018 11:14:07 Abnormal uterine bleeding 4740114403 9100 N93.9 Venereal d isease screening 943164124 Z11.3 [id number] MD Jason Rivera [address] [facility] [place] [address] 07/12/2018 09:08:14 07/12/2018 10:03:41 Irregular periods 10283983 N92.6 Abdominal discomfort 433 91061 R10.9 [id number] Heather Haddad APN, FNP-C [facility] (Adult Med) [address] [place] [address] 07/24/2018 09:10:59 07/24/2018 14:16:34 Administration of influenza vaccine 58824586 Z23 [id number] Heather Haddad APN, FNP-C [facility] (Adult Med) [address] [place] [address] 05/08/2019 08:41:32 05/09/2019 11:52:25 Gastroesophageal reflux disease 233170947 K21.0 Posterior rhinorrhea 758 76389 R09.82 Seasonal a llergic rhinitis 752869306 J30.2 Headache 06904759 R51 Adult heal th examination 229124190 Z00.01 [id number] CINTIA Landaverde [address] [facility] [place] [address] 05/09/2019 09:25:09 05/10/2019 09:18:51 At increased risk of urinary tract infection 969844369 Z91.89 [id number] CINTIA Landaverde 14 OB [address] [facility] [place] [address] 05/31/2019 09:24:02 06/04/2019 08:54:40 Screening mammography 37896049 Z12.31 Pain in pelvis 01241573 R10.2 Gynecologi c examination 15386792 Z01.419 Surveillan ce of intrauterine device contraception done [id number] 22094 Z30.40 [id number] DIEGO [facility] (Adult Med) [address] [facility] [place] [address] 08/06/2019 09:24:38 08/07/2019 09:21:07 Administration of influenza vaccine [id number] Z23 [id number] Heather Haddad APN, FNP-C [place] (Adult Med) [address] [facility] [place] [address] 05/12/2020 08:15:48 05/13/2020 13:21:12 Gastroesophageal reflux disease 703860137 K21.0 Headache 42333841 R51 Posterior rhinorrhea 758 37779 R09.82 Seasonal a llergic rhinitis 215714481 J30.2 Bilateral shoulder joint pain 0537739404 5171917 M25.511 M25.035 [id number] CINTIA Landaverde [address] [facility] [place] [address] 08/19/2020 08:36:30 08/20/2020 12:43:28 Removal of intrauterine device 74233631 Z30.432 [facility] 751910292 Z30.9 [id number] Heather Haddad APN, FNP-C [place] (Adult Med) [address] [place] [address] 12/15/2020 08:48:29 12/16/2020 08:53:32 Gastroesophageal reflux disease 784298947 K21.9 Headache 15131919 R51.9 Posterior rhinorrhea 758 14727 R09.82 Seasonal a llergic rhinitis 042875717 J30.2 Bilateral shoulder joint pain 7617017936 5040021 M25.511 M25.512 Essential hypertension 81334131 I10 Vitamin D deficiency 347 76046 E55.9 Endocrine/ metabolic screening 241620016 Z13.737 [id number] Heather Haddad APN, FNP-C [place] (Adult Med) [address] [place] [address] 06/15/2021 09:19:27 06/22/2021 12:44:09 Gastroesophageal reflux disease 084360259 K21.9 Posterior rhinorrhea 758 86293 R09.82 Seasonal a llergic rhinitis 688087341 J30.2 Essential hypertension 99285131 I10 Vitamin D deficiency 347 66315 E55.9 Bacterial conjunctivitis 553602114 H10.9 Numbness a nd tingling sensation of skin 4033449661 02 R20.2 [id number] Heather Haddad APN, FNP-C [place] (Adult Med) [address] [place] [address] 10/29/2021 10:09:35 11/01/2021 09:58:20 Cluster headache 564908955 G44.009 Bilateral shoulder joint pain [id number] 4560463 M25.511 M25.512 Headache 16109104 R51.9 [id number] Heather Haddad APN, FNP-C [place] (Adult Med) [address] [place] [address] 01/04/2022 09:41:21 01/05/2022 06:41:54 Cluster headache 522051306 G44.009 Headache 74236029 R51.9 Bilateral shoulder joint pain 5773336310 6618887 M25.511 M25.512 Essential hypertension 08239210 I10 Gastroesop hageal reflux disease 044609551 K21.9 [id number] Heather Haddad APN, FNP-C [place] (Adult Med) [address] [place] [address] 08/24/2022 15:21:04 08/25/2022 08:15:34 Missed period 51922569 N92.5 Essential hypertension 60357709 I10 Gastroesop hageal reflux disease 736611263 K21.9 Adult heal th examination 988512529 Z00.00 Administra tion of influenza vaccine 94905651 Z23 [id number] Heather Haddad APN, FNP-C [place] (Adult Med) [address] [facility] [place] [address] 02/11/2023 09:24:52 02/14/2023 16:07:05 Essential hypertension 61298353 I10 Headache 29473664 R51.9 Seasonal a llergic rhinitis 872653673 J30.2 Allergic conjunctivitis of bilateral eyes 2768443080 70884 H10.13 [id number] Heather Haddad APN, FNP-C [place] (Adult Med) [address] [facility] [place] [address] 04/19/2023 10:27:05 04/20/2023 12:20:52 Essential hypertension 15050747 I10 Headache 49172439 R51.9 Seasonal a llergic rhinitis 653498143 J30.2 [id number] [facility] OB [address] [facility] [address] [place] [address] [address] 06/17/2023 09:48:01 06/21/2023 12:13:04 Removal of subcutaneous contraceptive 204923629 Z30.46 Insertion of subcutaneous contraceptive 748400576 Z30.9 Screening mammography 24 460683 Z12.31 [id number] Heather Haddad APN, FNP-C [place] (Adult Med) [address] [facility] [place] [address] 10/18/2023 10:29:19 10/19/2023 14:22:28 Allergic conjunctivitis of bilateral eyes 1043259952 91506 H10.13 Essential hypertension 40544771 I10 Vitamin D deficiency 347 21834 E55.9 Headache 27930606 R51.9 Seasonal a llergic rhinitis 131047671 J30.2 Adult heal th examination 830162299 Z00.01 [id number] Heather Haddad APN, DIRECTOR COUNSELING BUREAU-C [facility] (Adult Med) [address] [place] [address] 04/24/2024 10:35:02 05/01/2024 09:52:46 Essential hypertension 95935717 I10 Headache 98796321 R51.9 Seasonal a llergic rhinitis 470407519 J30.2 [id number] Heather Haddad APN, DIRECTOR COUNSELING BUREAU-C [facility] (Adult Med) [address] [place] [address] 07/31/2024 10:55:40 08/03/2024 17:18:01 Essential hypertension 94935644 I10 Headache 03127572 R51.9 Seasonal a llergic rhinitis 162355191 J30.2 Adult [facility] th examination 715769754 Z00.01 Health Concerns Section Related Observation LastModified by Organization Detai ls LastModified Time None Recorded Concern Status LastModified by Organization Details LastModified Time None Recorded Advance Directives Directive N: Payers Encounter Date Sequence Insurance Name Policy Number Policy Alba Covered Member ID Alba Member ID Guarantor Name 04/19/2023 2 *SELF PAY* Giselle Aguayo 04/19/2023 1 [facility] ON OR AFTER 04/30/21 (MEDICAID REPLACEMENT - HMO) Melody Aguayo [id number] Melody Aguayo 06/17/2023 1 [facility] ON OR AFTER 04/30/21 (MEDICAID REPLACEMENT - HMO) Melody Aguayo [id number] Melody Aguayo 10/18/2023 1 [facility] ON OR AFTER 04/30/21 (MEDICAID REPLACEMENT - HMO) Melody Aguayo [id number] Melody Aguayo 04/24/2024 1 [facility] ON OR AFTER 04/30/21 (MEDICAID REPLACEMENT - HMO) Melody Aguayo [id number] Melody Aguayo 07/31/2024 1 [facility] ON OR AFTER 04/30/21 (MEDICAID REPLACEMENT - HMO) Melody Aguayo [id number] Melody Aguayo Notes Date Note Type Note Provider Name and Address Organization Details Recorded Time 04/19/2023 text/html pt c/o headaches for 2 weeks. takes Excedrin daily and advil daily, lasts till the ibu kicks in and then she is fine; Heather Haddad APN, FNP-C Attn: Accounting,[address] [facility], [place], [address], [facility] 04/19/2023 11:10:20 06/17/2023 text/html Annual GYNReport ed bypatient.History:no gynecologic complaints Menstrual cycle:Normal menses Urinary symptoms:No hematuria; No incontinence Vulva:No genital lesion Vagina:Normal vaginal discharge Breast:No breast pain; No breast lump; No nipple discharge Current Contraception:Satisf ied with current contraception Sexual complaints:No sexual complaints; No pain during intercourse; Normal libido Menopausal Symptoms:No menopausal symptoms; Normal vaginal lubrication Psychological symptoms:No depression; No anxiety; No PMDD Preventive measures:Encourage self breast examination; Encourage regular exercise; Encourage no tobacco use; Encourage regular mammograms starting age 40; Followed with Q3 year pap smear and high risk HPV typing 42 yo fe here for nexplanon removal and replacement- placed 08/19/20- hx gerd, mvp, - last pap wnl 06/17/17- will reschedule- last mammogram wnl 06/05/19, would like order CINTIA Landaverde Attn: Accounting[address] [facility], [place], [address], [facility] 06/17/2023 10:37:24 10/18/2023 text/html Here for annual exam/follow up Pt states her home bp has been high and shes having headaches- states her bp at home runs around 135/88pt c/o bilateral eye pain, dry and salas alot for 2 months- used to use eye ointment Heather Haddad APN, FNP-C Attn: Accounting,[address] [facility], [place], [address], [facility] 10/18/2023 11:27:16 04/24/2024 text/html pt still c/o headache and dizziness everyday. Muscle relaxer did not helpPt states her home bp has been high and shes having headaches- states her bp at home runs around 140/90 saadia with headache, 130's if not headache Heather Haddad APN, FNP-C Attn: Accounting,[address] [facility], [place], [address], [facility] 04/25/2024 00:06:36 07/31/2024 text/html no more headache s now, managed with medicationback is also better with muscle relaxer, no more tension Heather Haddad APN, FNP-C Attn: Accounting,[address] [facility], [place], [address], [facility] 07/31/2024 13:59:57 OBGyn Episode No OBEpisode recorded.
--- OUTSIDE RECORDS SUMMARY | 2024-10-26 08:28 | XMS_ITS | Referral Summary ---
Author Organization [facility] Address [address] [place] [address] Care Team Providers Care Recovery Analyst Name Role Phone Unavailable Primary Care Provider Unavailabl e Source Comments [facility],non-owned Affiliates and Associated Physician Practices is amultiple site organization consisting of ambulatory clinics and hospital sitesin [place], [place], [place]. This disclosure is being madepursuant to the Care Everywhere program and may not contain all information available regarding this patient. Last updated 18.[facility] Allergies No known active allergies Medications * [...] Name Administration Dates Next Due INFLUENZA 10/21/2021,08/09/2020 Social History Tobacco Use Types Packs/Day Years Used Date Smoking Tobacco: Never Smokeless Tobacco: Never Alcohol Use Standard Drinks/Week Comments No 0 (1 standard drink = 0.6 oz pur e alcohol) Sex and Gender Information Value Date Recorded Sex Assigned at Not on file Gender Identity Not on file Sexual Orientation Not on file Plan of Treatment Not on file
--- OUTSIDE RECORDS SUMMARY | 2024-10-26 08:29 | XMS_ITS | Encounter Summary ---
Author Organization [facility] Address [address] [facility] [place] [address] Care Team Providers Care Hostel Manager Name Role Phone Unavailable Primary Care Provider Unavailabl e Reason for Visit * Reason Comments Refill Request Encounter Details Date Type Department Care Team (Late st Contact Info) Description 03/10/2022 Refill [facility] [address] [place] [address] Nain Winchester MD [address] [facility] [address] [place] [phone] Refill Request Social History Tobacco Use Types Packs/Day Years Used Date Smoking Tobacco: Never Smokeless Tobacco: Never Alcohol Use Standard Drinks/Week Comments No 0 (1 standard drink = 0.6 oz pur e alcohol) Sex and Gender Information Value Date Recorded Sex Assigned at Not on file Gender Identity Not on file Sexual Orientation Not on file documented as of this encounter Miscellaneous Notes * Telephone Encounter - Linda Roberto MA - 03/11/2022 8:26 AM CDT LV: 12-14-21 NV: 06-14-22 RTC: 6 months documented in this encounter Plan of Treatment Not on file documented as of this encounter Visit Diagnoses Diagnosis Melasma Other dyschromia documented in this encounter
--- OUTSIDE RECORDS SUMMARY | 2024-10-26 08:29 | XMS_ITS | Encounter Summary ---
Author Organization [facility] Address [address] [facility] [place] [address] Care Team Providers Care Emergency Services Dispatcher Name Role Phone Unavailable Primary Care Provider Unavailabl e Reason for Visit * Reason Comments Follow-up melasma and rosacea; states tretinoin and TNS results in dark skin; ordered TriLuma on Zenverge; uses Elta 46 Encounter Details Date Type Department Care Team (Late st Contact Info) Description 12/14/2021 9:10 AM SILVERSMITH APPRENTICE Cosmetic Visit [facility] [address] [place] [address] Marsha Gilbert MD [address] [facility] [address] [place] [address] Melasma Social History Tobacco Use Types Packs/Day Years Used Date Smoking Tobacco: Never Smokeless Tobacco: Never Alcohol Use Standard Drinks/Week Comments No 0 (1 standard drink = 0.6 oz pur e alcohol) Sex and Gender Information Value Date Recorded Sex Assigned at Not on file Gender Identity Not on file Sexual Orientation Not on file documented as of this encounter Patient Instructions * Patient Instructions* Nain Winchester MD - 12/14/2021 9:31 AM SILVERSMITH APPRENTICE Your melasma is improving. Continue tri-tima 9 months on and take 3 month break Start Differin gel once a day at night. This is available over the counter at drug stores such as [employer] We recommend Skinceuticals CE Ferulic serum. You can apply this in the morning. Continue to wear your EltaMD sunscreen daily. Start over the counter adapalene/Differin when not using Tri-TIMA Differin - Adapalene This topical medication helps treat and prevent acne. Your acne may become worse before it gets better. Use only a pea size amount for the entire face. Do not use only for spot treatment. Stop all other toners, cleansers, scrubs, and acne products that are not prescribed by your doctor,as this may make you more dry.. Wash your face with a mild soap such as Dove for sensitive skin, Cetaphil, Cerave, etc. WHEN TO USE: Week 1 use only Tuesday and Tuesday Week 2 use every other day Week 3 use every day only if you are able to tolerate the medication. Otherwise continue using every other day. You can expect some peeling / flaking but your skin should not be irritated. If irritation occurs use the medication less often. Use a non-comedogenic moisturizer (Cetaphil, Cerave, Neutrogena) in the morning and / or night if dryness occurs Stop the medication if you become or are planning Be cautious with waxing (upper lip / eyebrows) when on these products - skin may be more sensitive. You may need to discontinue them a week before Be patient. It may take as long as 3 months before you notice improvement ERSMITH APPRENTICE documented in this encounter Progress Notes * Nain Winchester MD - 12/14/2021 9:28 AM CST Melody Aguayo is a 41 year old female who presents for follow up of melasma. 01/27/21 Concerns: Melasma on face Status of condition: She is happy with her skin currently and has noticed improvement overall. Duration: 5-10 years Previous treatments: -Microdermabrasion (last on 03/2019) -Microneedling (last on 02/2019) -Altreno (discontinued after noticing hyperpigmentation with starting Altreno - but had simultaneously stopped Tri-Tima at this time) -Tranexamic acid 50mg/mL BID (last on 10/2019) Current treatment: pleased with improvement on on current regimen -EltaMD Sunscreen BID PE: - Faint hyperpigmented patches on bilateral (significantly improved today with Marrero lamp) - Mcghee skin type III ?? Assessment and plan: ?? Ms. Melody Aguayo is a 41 year old female who is following up for her melasma treatment. Her melasma is significantly improved since beginning treatment ?? 1. Melasma--improving - Start OTC Differin 0.1% gel nightly - Refill of Tri-Tima given today for 3 refills. 9 months on and 3 months off - Continue EltaMD to entire face daily ?? Patient seen, examined, and discussed with Dr. Gilbert. Nain Winchester MD Dermatology PGY-2 Coding Rationale New or est? Established Patient Attending Stress the need to avoid irritants, to take 2 month breaks from triluma every 9 months, sun protection. States that lasers, peels, have caused some temporary SALUD. Today the melasma looks good but has some erythema cheeks with telangectasia Marsha Gilbert MD ERSMITH APPRENTICE documented in this encounter Plan of Treatment Not on file documented as of this encounter Visit Diagnoses Diagnosis Melasma Other dyschromia documented in this encounter
--- OUTSIDE RECORDS SUMMARY | 2024-10-26 08:29 | XMS_ITS | Encounter Summary ---
Author Organization [facility] Address [address] [facility] [place] [address] Care Team Providers Care Liability Claims Representative Name Role Phone Unavailable Primary Care Provider Unavailabl e Reason for Visit * Reason Comments Brown Spots melasma follow up Encounter Details Date Type Department Care Team (Late Contact Info) Description 06/17/2020 9:30 AM CDT Cosmetic Visit [facility] [address] [place] [address] Marsha Gilbert MD [address] [address] Melasma Social History Tobacco Use Types [...] this encounter Patient Instructions * Patient Instructions* Fallon Sylvester MD - 06/17/2020 9:24 AM CDT Stop taking Tri-Saba (your skin needs a break from 2 of the ingredients - hydrocortisone & hydroquinone). Re-start Tri-Saba in August. UNTIL AUGUST 31: - Start applying Tranexamic Acid every morning. - Then apply your sunscreen (SPF 30 or higher) every day after the Tranexamic acid. - Start tretinoin (Retin-A) 0.05% cream - using pea sized amount to entire face nightly. ON AUGUST 31: - Okay to re-start Tri-Saba on August 31 - use a pea sized amount to entire face nightly. - Use for 3 months, then alternate back to tranexamic acid/Retin-A regimen (as above). - Continue to use dsunscreen every single day. documented in this encounter Progress Notes * Fallon Sylvester MD - 06/17/2020 10:24 AM CDT Melody Aguayo is a 39 yo female who presents for follow up of melasma. ?? Concerns: Melasma on face Status of condition: She is happy with her skin currently, much improved while using TriLuma, however, when she stopped Tri-Saba in December & started Altreno, the hyperpigmentation on her cheeks returned within 3-4 days. She discontinued Altreno at that time as attributes that to causing her hyperpigmentation, and started using Tri-Saba again after 3-4 days off. She has been using TriLuma nightly since October 2019. Duration: 5-10 years Previous treatment: -Microdermabrasion (last on 03/2019) -Microneedling (last on 02/2019) -Altreno (discontinued after noticing hyperpigmentation with starting Altreno - but had simultaneously stopped Tri-Saba at this time) -Tranexamic acid 50mg/mL BID (last on 10/2019) Current treatment: pleased with improvement on on current regimen -TriLuma cream nightly (has been using nightly for 7 months - since October 2019) -Sunscreen SPF >30 daily -Tranexamic acid 50mg/mL BID (started 12/2018) -Sunscreen SPF >30 daily PE: - Faint hyperpigmented patches on cheeks (much improved compared to photos in 2018) - Mcghee skin type III-IV ?? Assessment and plan: ?? Ms. Melody Aguayo is a 39 yo who is following up for her melasma treatment. Her melasma is much improvedsince beginning treatment (compared to photos from 2018). ?? 1. Melasma--improved - Recommend stopping TriLuma until August 31 (~2.5 month break), keep in refrigerator until then - Recommend re-starting Tranexamic acid QAM until August 31 (has plenty of compounded formulation left at home), then restart TriLuma August 31 - Recommend starting Tretinoin 0.05% cream nightly until August 31 (sent to local personal pharmacy), then restart TriLuma August 31 (refill sent to [facility]) - Continue EltaMD to entire face daily ?? Patient seen, examined, and discussed with Dr. Gilbert. Fallon Sylvester MD Dermatology Resident PGY-2 ?? Attending Pigment dramatically improved. States that the spots started to come back within 4 days of stoppingthe Triluma and using the Altreno. Needs to take a break from the Triluma and will start generic tretinoin with the topical TXA and sunscreen for 2 months and then stop these and restart the triluma Marsha Gilbert MD documented in this encounter Plan of Treatment Not on file documented as of this encounter Visit Diagnoses Diagnosis Melasma Other dyschromia documented in this encounter
--- OUTSIDE RECORDS SUMMARY | 2024-10-26 08:29 | XMS_ITS | Encounter Summary ---
Author Organization [facility] Address [address] [facility] [place] [place] [address] Care Team Providers Care Consultant [employer]. Vice President [employer] ) Name Role Phone Unavailable Primary Care Provider Unavailabl e Reason for Visit * Reason Comments Follow-up Patient here for f/u melasma Encounter Details Date Type Department Care Team (Late st Contact Info) Description 01/27/2021 9:40 AM CDT Cosmetic Visit [facility] [address] [place] [address] Marsha Gilbert MD [address] [address] Social History Tobacco Use Types Packs/Day Years [...] this encounter Patient Instructions * Patient Instructions* Jocelynn Terry MD - 01/27/2021 9:44 AM CDT Your melasma is improving. Start Differin gel once a day at night. This is available over the counter at drug stores such as [employer] and [employer]. We recommend Skinceuticals CE Ferulic serum. You can apply this in the morning. Continue to wear your EltaMD sunscreen daily. Apply this after the Skinceuticals serum. RETINOIDS AND RELATED PRODUCTS Tazorac - Tazarotene Differin - Adapalene Retin A / Retin A Micro / [employer] - Tretinoin This topical medication helps treat and prevent [...] as 3 months before you notice improvement documented in this encounter Progress Notes * Jocelynn Terry MD - 01/27/2021 9:41 AM CDT Melody Aguayo is a 39 year old female who presents for follow up of melasma. ?? Concerns: Melasma on face Status of condition: She is happy with her skin currently and has noticed improvement overall. She stopped TriLuma at the end of September 2020 and has only been using EltaMD sunscreen morning and night since then. Duration: 5-10 years Previous treatments: -Microdermabrasion (last on 03/2019) -Microneedling (last on 02/2019) -Altreno (discontinued after noticing hyperpigmentation with starting Altreno - but had simultaneously stopped Tri-Saba at this time) -Tranexamic acid 50mg/mL BID (last on 10/2019) Current treatment: pleased with improvement on on current regimen -EltaMD Sunscreen BID PE: - Faint hyperpigmented patches on bilateral (significantly improved compared to photos in 2018) - Mcghee skin type III ?? Assessment and plan: ?? Ms. Melody Aguayo is a 39 year old female who is following up for her melasma treatment. Her melasma is significantly improved since beginning treatment (compared to photos from 2018). ?? 1. Melasma--improving - Start OTC Differin 0.1% gel nightly - Continue to hold TriLuma. Will consider restarting TriLuma during the winter. - Continue EltaMD to entire face daily - Recommended Skincuticals CE Ferlic daily in th morning. ?? Patient seen, examined, and discussed with Dr. Gilbert. Jocelynn Terry MD,MP[facility] U Dermatology Resident, PGY-2 Attending As noted, melasma not visible today She feels tretinoin is too harsh for face Discuss adapalene OTC as a more gentle form to be used daily Stress ongoing fight against melasma Start CEFerrulic Stress sun protection Answered questions Marsha Gilbert MD documented in this encounter Plan of Treatment Not on file documented as of this encounter Visit Diagnoses Not on filedocumented in this encounter
--- OUTSIDE RECORDS SUMMARY | 2024-10-26 08:30 | XMS_ITS | Encounter Summary ---
Author Organization [facility] Address [address] [facility] [address] Care Team Providers Care Assistant Professor Of Geography Name Role Phone Unavailable Primary Care Provider Unavailabl e Reason for Visit * Reason Comments Refill Request Tri-Saba refill requ est Encounter Details Date Type Department Care Team (Late st Contact Info) Description 02/05/2019 Refill [facility] [address] [place] [address] Marsha Gilbert MD [address] [address] Refill Request (Tri-Saba refill request) Social History Tobacco Use Types Packs/Day Years [...]
--- OUTSIDE RECORDS SUMMARY | 2024-10-26 08:30 | XMS_ITS | Encounter Summary ---
Author Organization [facility] Address [address] [facility] [place] [address] Care Team Providers Care Drafter Castings Name Role Phone Unavailable Primary Care Provider Unavailabl e Reason for Visit * Reason Comments Follow-up Patient here for f/u melasma Encounter Details Date Type Department Care Team (Late st Contact Info) Description 06/12/2019 9:30 AM CDT Cosmetic Visit [facility] [address] [place] [address] Marsha Gilbert MD [address] [facility] [address] [place] [address] Melasma Social History Tobacco Use Types Packs/Day Years Used Date Smoking Tobacco: Never Smokeless Tobacco: Never Alcohol Use Standard Drinks/Week Comments No 0 (1 standard drink = 0.6 oz pur e alcohol) Sex and Gender Information Value Date Recorded Sex Assigned at Not on file Gender Identity Not on file Sexual Orientation Not on file documented as of this encounter Progress Notes * Elisha Domínguez F - 06/12/2019 11:09 AM CDT Melasma much improved with topicals. Refills of TriLuma and Tansexamic Acid topicals approved by Dr. Gilbert and sent. She is to continue with topicals through September and return in October Seen today- She is happy with the improvement and there is significant improvement on exam today Tolerating both topicals Stress sun protection F/u Vraun or Oct Marsha Gilbert MD documented in this encounter Plan of Treatment Not on file documented as of this encounter Visit Diagnoses Diagnosis Melasma Other dyschromia documented in this encounter
--- OUTSIDE RECORDS SUMMARY | 2024-10-26 08:30 | XMS_ITS | Encounter Summary ---
Author Organization [facility] Address [address] [facility] [place] [address] Care Team Providers Care Pipeline Superintendent Division Name Role Phone Unavailable Primary Care Provider Unavailasad e Reason for Visit * Reason Onset Date Comments Brown Spots 12/11/2019 melasma Refill Request 12/19/2019 Encounter Details Date Type Department Care Team (Late st Contact Info) Description 12/11/2019 Telephone [facility] [address] [place], [place] [id number] Elisha Domínguez Update Information Brown Spots (melasma); Refill Request Social History Tobacco Use Types [...] encounter Miscellaneous Notes * Telephone Encounter - Jocelynn Byers - 12/19/2019 9:48 AM CST Received refill request from [facility] for Tranexamic acid compound cream. Pls advise. SPERSON MEATS * Telephone Encounter - Hawa Diane DO - 12/11/2019 1:59 PM SALESPERSON MEATS As discussed previously. Recommend trial of Altreno after she completes TriLuma cycle at end of December 2019. It is possible her skin got darker due to stopping the tranexamic acid and TriLuma simultaneously, instead of continuing TriLuma for a longer period. If she truly cannot tolerate Altreno, will discuss other alternatives at that time. Hawa Diane DO Dermatology Resident, PGY-4 12/11/2019 2:01 PM SPERSON MEATS * Telephone Encounter - Elisha Domínguez - 12/11/2019 1:50 PM CST Pt called and reported she has been using the Triluma since 12/03 with good results. She did stop the Transexamic acid. She does not ever want to use the Altreno again. She was advised to use the Triluma until the end of december. She wants to know what she should use inreplacement of the Triluma once she stops it the end of December. She states the Altreno made her skindark and she will never use it again. She uses the sunscreen in the day. Please advise SPERSON MEATS documented in this encounter Plan of Treatment Not on file documented as of this encounter Visit Diagnoses Not on filedocumented in this encounter
--- OUTSIDE RECORDS SUMMARY | 2024-10-26 08:30 | XMS_ITS | Encounter Summary ---
Author Organization [facility] Address [address] [facility] [place] [address] Care Team Providers Care Drop Wire Hanger Name Role Phone Unavailable Primary Care Provider Unavailabl e Reason for Visit * Reason Comments Follow-up Follow up for facial pigmentation Encounter Details Date Type Department Care Team (Late st Contact Info) Description 01/16/2019 9:30 AM CDT Cosmetic Visit [facility] [address] [place] [address] Marsha Gilbert MD [address] [address] Melasma Social History Tobacco Use [...] this encounter Patient Instructions * Patient Instructions* Jonel Chavez MD - 01/16/2019 9:19 AM CDT Thank you for coming to your appointment today. Please plan follow up in May. Continue Triluma and aggressive sun protection, you are getting excellent improvement with your current regimen. Color Science powder is helpful for sun protection as well. Skinmedica TDR and Lytera 2.0 is also excellent. Continue Helioplex daily. SUNSCREENS UVA and UVB PROTECTION Sunlight consists of two types of light that can cause or worsen most skin problems: UVA (ultraviolet A) UVB (ultraviolet B) Brown spots Skin cancers Wrinkles Sunburn Aging Tanning Rosacea Less variation with seasons Strongest in summer All year round All day strong Peak hours 10am to 2pm No rating system available SPF rates UVB protection Passes through glass and clouds Sunscreens that block both UVA and UVB light contain: Zinc Oxide (should contain at least 5% zinc oxide) Titanium Dioxide Parsol or Avobenzone (additives improve stability of Avobenzone) There are other UVA blocking ingredients but they are not as complete as these three. Tips/Suggestions SPF of 30 or higher Zinc Oxide or other UVA block such as Helioplex or Anthelios in product Remember there is no safe UV light...so there is no such thing as a safe suntan. Apply sunscreen daily (even in winter and on cloudy days) and reapply every 2 to 4 hours depending on activity. Approximately one ounce (a shot glass) is necessary to adequately cover the entire body. Approximately one teaspoon is necessary to adequately cover the face documented in this encounter Progress Notes * Jonel Chavez MD - 01/16/2019 9:08 AM CDT Chief Complaint Patient presents with ??? Follow-up Follow up for facial pigmentation HPI: Melody Aguayo a 38 year old azeri female presents for follow up of melasma. Patient was last seen on 10/18/18: 1) melasma- Rx Triluma, daily Yvrose SAMSON, consider microneedling (difficult with schedule), consider TXA but review SE Concerns: melasma Status of condition: Improved, but not clear, but overall happy Current treatment: - Triluma QHS - Yvrose SAMSON sunscreen daily or Skinmedica TDR, Lytera 2.0 - Helioplex daily - Lytera 2.0 daily Side effects of treatment: none -Works in a [employer] Mon-Sat -No personal or family hx of blood clots, stroke, DVT -Has tried numerous chemical peels, sunscreen, and OTC topicals prior without much improvement Pictures taken today PE: No acute distress. Mood clear/affect appropriate. Alert and oriented. Mucous membranes moist. Sclera anicteric. Visible skin exam was conducted to include the scalp, face, lips/teeth, lids/conjunctiva, ears, neck, right and left hands and forearms and was normal with the following exceptions: - Simon-brown macules coalescing into patches on bilateral cheeks > forehead > upper lip A/P: Melody was seen today for follow-up. Diagnoses and all orders for this visit: Melasma - Significant improvement noted - Continue Triluma QHS - Continue Yvrose SAMSON sunscreen + photoprotection, Skinmedica TDR - Continue Lytera 2.0 daily - Continue Helioplex daily - If not improving consider microneedling (difficult due to schedule at work) vs. Oral TXA vs. finacea gel RTC in May Jonel Chavez MD Dermatology Resident, PGY-3 Attending Improved significantly based on prior exam Tolerating therapy well Has only been 3 months and will continue with current plan Can consider Tranxameic acid if not improving. Review risks Due to work schedule, microneedling is not option Marsha Gilbert MD documented in this encounter Plan of Treatment Not on file documented as of this encounter Visit Diagnoses Diagnosis Melasma- Primary Other dyschromia documented in this encounter
--- OUTSIDE RECORDS SUMMARY | 2024-10-26 08:30 | XMS_ITS | Encounter Summary ---
Author Organization [facility] Address [address] [place] [address] Care Team Providers Care Day Camp Unit Leader Name Role Phone Unavailable Primary Care Provider Unavailabl e Reason for Visit * Reason Comments Follow-up Patient here for f/u melasma. She reports it is better, Encounter Details Date Type Department Care Team (Late st Contact Info) Description 11/06/2019 9:30 AM SENIOR DESIGNER Cosmetic Visit [facility] [address] [place] [address] Marsha Gilbert MD [address] [address] Melasma Social History Tobacco Use [...] this encounter Patient Instructions * Patient Instructions* Marcela Spain MD - 11/06/2019 10:17 AM SENIOR DESIGNER Thank you for visiting the [facility] today! 1) Stop tranexamic acid 2) Continue using TriLuma until the end of December 2019. Then STOP TriLuma at this time (keep TriLumain fridge) 3) In December 2019, start Altreno to entire face every night. ONLY use Altreno until July 2020, then you can restart TriLuma 4) Continue using sunscreen to face every day. Please return to clinic in July 2020. OR DESIGNER documented in this encounter Progress Notes * Marcela Spain MD - 11/06/2019 9:55 AM CST Melody Aguayo is a 39 yo who presents as follow up of melasma. Concerns: Melasma on face Duration: 5-10 years Symptoms: Darkened areas of skin Previous treatment: -Microdermabrasion (last on 03/2019) -Microneedling (last on 02/2019) Current treatment: Happy with improvement on -TriLuma cream nightly (started on 09/2018) -Tranexamic acid 50mg/mL BID (started 12/2018) -Sunscreen SPF >30 daily Assessment and plan: Ms. Melody Aguayo is a 39 yo who is following up for her melasma treatment. Her melasma is much improvedsince beginning treatment (compared to photos from 2018). 1. Melasma--improved - Recommend stopping Tranexamic acid now - Recommend continuing TriLuma as she has been to face until end of December 2019 - After stopping TriLuma, recommend keeping TriLuma in fridge until restarting it in Jul - After stopping TriLuma in December, recommend starting Altreno to entire face every night. Continue Altreno until Jul 2020 and then restart TriLuma - Continue EltaMD to entire face daily RTC in Jul 2020 Marcela Spain [facility] Dermatology Resident, PGY-2 Attending Marked improvement in melasma Stress sun protection Remind of chronic nature Had me face time with her sister in [facility] who looks to have melasma as well Marsha Gilbert MD OR DESIGNER documented in this encounter Plan of Treatment Not on file documented as of this encounter Visit Diagnoses Diagnosis Melasma Other dyschromia documented in this encounter
--- OUTSIDE RECORDS SUMMARY | 2024-10-26 08:30 | XMS_ITS | Encounter Summary ---
Author Organization [facility] Address [address] [facility] [place] [address] Care Team Providers Care Kitchen And Bath Designer Name Role Phone Unavailable Primary Care Provider Unavailabl e Reason for Visit * Reason Comments Brown Spots melasma; micro-needl ing # 1 Encounter Details Date Type Department Care Team (Late st Contact Info) Description 03/06/2019 9:30 AM CDT Cosmetic Visit [facility] [address] [place] [address] Marsha Gilbert MD [address] [address] Social History Tobacco Use Types [...] this encounter Patient Instructions * Patient Instructions* Elisha Domínguez - 03/06/2019 8:59 AM CDT Post-Microneedling Instructions Call [phone] during office hours with any questions/concers Call [phone] ([facility] Electrical Tech) to page visitor information assistant application architect if there are any issues in the middle of the night or on weekends. Avoid any trauma to the treated site. Clean the areas twice a day with mild soap and water. Pat dry and apply plain petroleum jelly or Aquaphor. You will follow this regime for 3-7 days. Notify your physician if you have: - Yellowish/greenish discharge from the treated area - Increasing tenderness or pain - Warmth of the area and/or fever over 101 F - Red streaks - Tingling of the lip or perioral area which could indicate an HSV cold sore documented in this encounter Progress Notes * Elisha Domínguez - 03/06/2019 12:13 PM CDT Procedure: ??Micro-needling ? industrial technician: ??Elisha Domínguez RN?Attending Physician: ??Marsha Gilbert MD Treatment number: ??1 Diagnosis: melasma ? Goals and expectations reviewed with patient. Patient informed of the need for several treatments to achieve maximum improvement. ? Consent Obtained: ??yes Photographs taken: ??no Skin Type: ??IV Hair Color: dark brown/black ? Procedure:?Strata Pen MicroNeedling Skin is cleaned of make-up and topicals as needed. ?? Anesthetic used: EMLA/Syran wrap applied by patient one to two hours prior to arriving in office. Used??PEREIRA-Cu Micropigmentation Clarifying Serum prior to microneedling for each portion of the face. ?? 11 pin Biolock used ? Treatment Area Depth mm Number of passes Speed Battery/Electric Forehead 1.0 4 4 Electric Glabella?? 1.0 4 4 Electric Left and Right infraorbital rim 1.5 4 4 Electric Nose 1.0 3 4 Electric cheeks 1.5-2.0 4 4 Electric Upper Lip 1.0-1.5 4 4 Electric Chin 1.0-1.5 4 4 Electric ? Treated cheeks first Patient tolerated the procedure well Complications: ??None Post therapy: patient instructed to cleanse face in 2 hours and apply Aquaphor or plain Vaseline. Charge: ??350.00 ? Comments: ?? -- Post procedure instructions reviewed and provided - Instructed to call with any questions/concerns - Plan next treatment in 4-6 weeks ?? Attending Note I was present and available in suite for the entire procedure. Marsha Gilbert MD documented in this encounter Plan of Treatment Not on file documented as of this encounter Visit Diagnoses Not on filedocumented in this encounter
--- OUTSIDE RECORDS SUMMARY | 2024-10-26 08:30 | XMS_ITS | Encounter Summary ---
Author Organization [facility] Address [address] [facility] [place] [place] [address] Care Team Providers Care Rib Chopper Name Role Phone Unavailable Primary Care Provider Unavailabl e Encounter Details Date Type Department Care Team (Late st Contact Info) Description 03/19/2019 9:50 AM CDT Cosmetic Visit [facility] [address] [place] [address] Carmita Ibarra MD [address] [facility] [address], [place] [address] Melasma Social History Tobacco Use Types Packs/Day [...] Instructions * Patient Instructions* Elisha Domínguez - 03/19/2019 10:14 AM CDT Make an appointment to see Dr. Gilbert for follow up in 2 to 3 months Two new prescriptions (Transexamic Acid and TriLUma) will be sent to [facility] [phone] They should contact you for payment etc within 24 hours; if they do not reach you, please call them Apply the Tranexamic acid twice daily In AM apply Tranexamic acid then appropriate sunscreen In PM apply Tranexamic acid then Triluma You may schedule to return for Micro-Dermabrasion every 4 to 6 weeks. MicroDermabrasion cost is $125.00 each. l Topical Retinoid for Skin Rejuvenation Retin A Micro / Tretinoin Triluma (Caution: this product is a combination of retinoid, a fade cream, and a steroid. Due to the steroid, you may only use it for 4 to 6 months.) This topical medication helps with brown spots, sun damage, pore size and fine lines and wrinkling. Use this product at bedtime. Gently cleanse your face before applying. Use only a pea sized amount of the medication. You can mix the product with a gentle moisturizer oryou may apply moisturizer prior to application of mediation. Spread the product evenly over your face. Avoid or use sparingly over the more sensitive areas around the eyes, nose and corners of your mouth. Never apply to your eyelids. In the morning, gently cleanse your face and use a moisturizing sunscreen prior to applying any make up or cosmetics. The product can make you more sun sensitive. Start slowly once or twice a week and gradually increase to nightly use. The goal is to use nightly, however the medications are strong and using them even three times per week can be beneficial. You can expect some dryness and flaking but your skin should not be red and irritated. Use a non-comedogenic moisturizer such as Cerave', Cetaphil, or Neutrogena as needed to help with the dryness. Stop the medication if you become . Be cautious with waxing (upper lip; eyebrows) when using a retinoid. Stop applying the medication 5days prior to waxing. Be patient! It may take 3 months or longer before you notice improvement. Please call the office at [phone] if you have any questions. SUNSCREENS UVA and UVB PROTECTION Sunlight consists [...] product Remember there is no safe UV light???so there is no such thing as a safe suntan. Apply sunscreen daily (even in winter and on cloudy days) and reapply every 2 to 4 hours depending on activity. Approximately one ounce (a shot glass) is necessary to adequately cover the entire body. Approximately one teaspoon is necessary to adequately cover the face documented in this encounter Progress Notes * Carmita Ibarra MD - 03/19/2019 10:32 AM CDT complains of darkening spots on cheeks PE: hyperpig patches in area of melasma, no geometric pattern (not PIH) A/P: 1. Melasma worsened s/p microneedling tx: likely due to ambient sun exposure and inability to wear sunscreen during healing period. On reviewing the prior photos appears she has increased erythema inareas of the melasma so vascular component may be quite contributory. -d/c microneedling for now -tranexamic acid 50mg/mL in vanicream bid, triluma cr qhs, ZnO, hats -microderm q4 weeks -consider PO tranexamic acid -consider VBeam in future to tx vascular component documented in this encounter Plan of Treatment Not on file documented as of this encounter Visit Diagnoses Diagnosis Melasma Other dyschromia documented in this encounter
--- OUTSIDE RECORDS SUMMARY | 2024-10-26 08:30 | XMS_ITS | Encounter Summary ---
Author Organization [facility] Address [address] [facility] [place] [address] Care Team Providers Care Edge Brusher Name Role Phone Unavailable Primary Care Provider Unavailabl e Reason for Visit * Reason Onset Date Comments General 05/01/2019 report skin dark ening Encounter Details Date Type Department Care Team (Late st Contact Info) Description 05/01/2019 Telephone [facility] [address] [place] [address] Marsha Gilbert MD [address] [id number] General (report skin darkening) Social History Tobacco Use Types Packs/Day Years [...] encounter Miscellaneous Notes * Telephone Encounter - Elisha Domínguez - 05/01/2019 5:07 PM CDT Spoke with pt who reports her face started to darken three days post microdermabrasion. She added it continues to get dark. Microderm was 2 weeks ago. She is using the Tranexamic acid andthe Triluma and elta sunscreen and states she does not spend time outdoors. Advised to continue treatment as these topicals cleared her skin significantly post micro - needling. Keep appointment in May with * Telephone Encounter - Jocelynn Byers - 05/01/2019 2:30 PM CDT Pt calling to cxl next MDA appt w/ Elisha Domínguez. Pt states that her skin does not look good and is very dark . Pt wanted Elisha to know, pls advise. documented in this encounter Plan of Treatment Not on file documented as of this encounter Visit Diagnoses Not on filedocumented in this encounter
--- OUTSIDE RECORDS SUMMARY | 2024-10-26 08:30 | XMS_ITS | Encounter Summary ---
Author Organization [facility] Address [address] [place] [address] Care Team Providers Care Director Perioperative Name Role Phone Unavailable Primary Care Provider Unavailabl e Reason for Visit * Reason Onset Date Comments Brown Spots 12/03/2019 melasma Encounter Details Date Type Department Care Team (Late st Contact Info) Description 12/03/2019 Telephone [facility] [address] [place] [address] Elisha Domínguez Update Information Brown Spots (melasma) Social History Tobacco Use Types Packs/Day Years [...] * Telephone Encounter - Elisha Domínguez - 12/03/2019 4:19 PM CST Phoned pt and left message to continue the TriLuma through December, then d/c TriLuma and start the Altreno. Reiterated she was correct to stop the Transexamic acid at last visit 11/06/2019. Also, asked pt if the Altreno was causing any irritation, dryness or flakiness. Asked pt to call back to my # with information requested and/or questions SCALER * Telephone Encounter - Hawa Diane DO - 12/03/2019 1:06 PM HIGH SCALER Please ask patient to resume TriLuma until end of December 2019 and then switch to Altreno. Hawa Diane DO Dermatology Resident, PGY-4 12/03/2019 1:07 PM SCALER * Telephone Encounter - Elisha Domínguez - 12/03/2019 9:57 AM CST Per Epic 11/06/2019 1. Melasma--improved - Recommend stopping Tranexamic acid now - Recommend continuing TriLuma as she has been to face until end of December 2019 - After stopping TriLuma, recommend keeping TriLuma in fridg until restarting it in Jul - After stopping TriLuma in December, recommend starting Altreno to entire face every night. Continue Altreno until Jul 2020 and then restart TriLuma - Continue EltaMD to entire face daily ?? RTC in Jul 2020 Pt called to report she is using the Altreno for one week and face is darker. She does not think the altreno is good for her. She stopped the Transexamic acic and she is using the Elta sunscreen daily. She wants to know if she should stop the altreno Please advise, I can call her back ?? SCALER documented in this encounter Plan of Treatment Not on file documented as of this encounter Visit Diagnoses Not on filedocumented in this encounter
--- OUTSIDE RECORDS SUMMARY | 2024-10-26 08:30 | XMS_ITS | Encounter Summary ---
Author Organization [facility] Address [address] [facility] [place] [address] Care Team Providers Care Talend Etl Developer Name Role Phone Unavailable Primary Care Provider Unavailabl e Reason for Visit * Reason Onset Date Comments Refill Request 08/09/2019 Encounter Details Date Type Department Care Team (Late st Contact Info) Description 08/09/2019 Refill [facility] [address] [place] [address] Marsha Gilbert MD [address] [address] Refill Request Social History Tobacco Use Types [...] * Telephone Encounter - Elisha Domínguez - 08/09/2019 2:35 PM CDT Left message at pharmacy that refill approved. With one additional refill if needed Per Epic She is to continue through September and return in October for evaluation * Telephone Encounter - Jocelynn Byers - 08/09/2019 2:18 PM CDT Received refill request for Tranexamic Acid 50 mg/gm cream 60 gm SIG: APply to the affected area BID. Last filled 07/09/19. documented in this encounter Plan of Treatment Not on file documented as of this encounter Visit Diagnoses Not on filedocumented in this encounter
--- OUTSIDE RECORDS SUMMARY | 2024-10-26 08:30 | XMS_ITS | Encounter Summary ---
Author Organization [facility] Address [address] [place] [address] Care Team Providers Care Delivery Supervisor Name Role Phone Unavailable Primary Care Provider Unavailabl e Reason for Visit * Reason Onset Date Comments Procedure Question 01/17/2019 Encounter Details Date Type Department Care Team (Late st Contact Info) Description 01/17/2019 Telephone [facility] [address] [place], [place] [id number] Elisha Domínguez Update Information Procedure Question Social History Tobacco Use Types Packs/Day Years [...] * Telephone Encounter - Elisha Domínguez - 01/17/2019 3:02 PM CDT Spoke with patient. She is wanting to schedule Micro-Needling and states she spoke to her boss and they said they will let her off. She is aware she will need to have 3 to 4 treatments 4 to 6 weeks apart. I informed her I would send the EMLA cream to her [facility] pharmacy and I will send instructions to her home She verbalized understanding documented in this encounter Plan of Treatment Not on file documented as of this encounter Visit Diagnoses Not on filedocumented in this encounter
--- OUTSIDE RECORDS SUMMARY | 2024-10-26 08:30 | XMS_ITS | Encounter Summary ---
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 We will plan on seeing you again in 3 months. Please callsooner if you have any new concerns. Tri-Saba for Skin Rejuvenation Caution: this product is a combination of retinoid, a fade cream, and a steroid. Due to the steroid, you may only use it for 6 months. This topical medication helps with brown spots, [...] notice improvement. Please call the office at [phone] if you have any questions. SUNSCREENS UVA and UVB PROTECTION Sunlight consists of two types of light that can cause or worsen most skin problems: UVA (ultraviolet A) Brown spots Wrinkles Aging Rosacea Less variation with seasons All year round All day strong No rating system available Passes through glass and clouds UVB (ultraviolet B) Skin cancers Sunburn Tanning Strongest in summer Peak hours 10am to 2pm SPF rates UVB protection Sunscreens that block both UVA and UVB light contain: Zinc Oxide (should contain at least 4% zinc oxide) Titanium Dioxide Parsol or Avobenzone [...] necessary to adequately cover the entire body. ERING MACHINE SETTER documented in this encounter Progress Notes * Vinicius Yanes MD - 10/18/2018 8:48 AM CST Cosmetic Consult Visit HPI Melody Aguayo a 38 y.o. Yi female who presents for a cosmetic consult. She is most concerned about dark patches on face ?? Bought Gregorio Brightening Spotless Oil (QVS) - herbal extracts and glycerin and Dr. Saravia [employer] ?? Has had approx 10 chemical peels at a Spa (at [facility]) - started last October and did them monthly until 2 months ago ?? 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 She previously had Implanon, but has not had in for approx 2 years ?? She denies trying overseas products ?? She is applying Vitamin E oil and wears sunscreen daily (unknown brand) Exam ?? Simon-brown macules coalescing into patches on bilateral cheeks > foerhead > upper lip; minimal enhancement with Wood's Lamp Assessment and Plan Melasma: ?? The patient was educated as to the chronic nature of this softiucni-zb-rrvca benign condition aswell as its relationship to UV light.The patient was educated as to the importance of strict broad-spectrum sun protection (including sunscreen, hats/clothing) and the fact that melasma will likely recur, even after successful treatment. The risks, benefits, options and aftercare of a variety of treatment options was discussed including topical treatment, tranexamic acid, and microneedling. We reviewed that laser treatment is one of last resort as this may worsen the condition after initial improvement. ?? Plan: Start Triluma + good sun protection ?? If no improvement, will consider microneedling vs. compounded tranexamic acid vs. PO tranexamic acid Vinicius Yanes MD [facility] Dermatology Resident, PGY-4 Attending Yi female with brown spot each cheek for several years but worsened this last year. Tried abotanical serum with lavender and then started getting peels [facility] [address]. Not sure what type. Had one every month x 10 mo. 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 Can see some macules upper lip with hinojosa lamp but not with the naked eye Review the mixed nature of her melasma and in depth discussion of genetics, hormones, UVA/UVB. Discuss heat and other minor triggers. Review chronic nature and types of treatment including topicals, lasers, microneedling, etc. Review that the procedures are usually associated with recurrences and can make melasma worse. Start Triluma, Daily Yvrose SAMSON Discuss mirconeedling but works M-Sat at nail salon and downtime is difficult Discus transexamic acic orally or topically but may have clotting s/e [place] skin care stressed Marsha Gilbert MD ERING MACHINE SETTER documented in this encounter Plan of Treatment Not on file documented as of this encounter Visit Diagnoses Not on filedocumented in this encounter
--- OUTSIDE RECORDS SUMMARY | 2024-10-26 08:30 | XMS_ITS | Encounter Summary ---
Author Organization [facility] Address [address] [facility] [place] [address] Care Team Providers Care Senior Operations Analyst Name Role Phone Unavailable Primary Care Provider Unavailabl e Reason for Visit * Reason Comments Brown Spots melasma; microdermab rasion Encounter Details Date Type Department Care Team (Late st Contact Info) Description 04/17/2019 9:30 AM CDT Cosmetic Visit [facility] [address] [place] [address] Marsha Gilbert MD [address] [address] Social History Tobacco Use Types [...] Instructions * Patient Instructions* Elisha Domínguez - 04/17/2019 9:27 AM CDT Post Microdermabrasion Skin Care Apply and keep sunscreen on treated area daily. Do not expose skin to the sun or tanning beds. Sunscreens with an SPF of 30 or greater and contain titanium dioxide and/or zinc oxide should be used ifsun exposure cannot be avoided. For five to seven days avoid products that can irritate the skin, such as: glycolic acid, [place]??,or Retin-A ??, or Triluma The treated area may be washed lightly, not scrubbed, with a mild soap, and patted dry. Do this twice a day. If experiencing red streaking from the treatment or if crusts have formed, after cleaning apply antibiotic ointment such as Polysporin??, Bacitracin?? or plain Vaseline to areas, and continue doing so until all areas heal. Avoid purposefully or accidentally scratching off any crusts which may have formed on the treated area. Try to soak off any crusting. Makeup may be applied after any crusting has resolved. Applying a moisturizer immediately after treatment will re-hydrate the skin and help relieve any tightness or discomfort. Please call the office at [phone] to speak with Elisha if you have any questions or problems arise. After hours or on weekends, please call [phone] and ask for the Dermatology physician manager corporate communications. Please remember that multiple treatments may be required to achieve the optimum result. documented in this encounter Progress Notes * Elisha Domínguez - 04/17/2019 11:46 AM CDT Melody Aguayo is a 38 year old woman who presents for micro-dermabrasion. She had full face micro-needling on 03/06/2019 with goals of improving her melasma. She returned to the office on 03/19/19 with hyperpigmented patches in area of the melasma, no geometric pattern (not PIH). She has been using the Triluma every night and the Tranexamic acid bid with considerable improvement in the melasma. She has vascular component (cheeks, chin, upper lip, nasal ala pink with telangiectasias. Procedure: Micro-Dermabrasion Treatment # : 1 Cost: $125.00 Skin description and Treatment Plan: melasma present on forehead, upper lip, lower lip, upper cheeks. Cheeks are pink(rossy); telangiectasias present Chief Complaint: Melasma forehead and upper cheeks (per patient) Post procedure Instructions: reviewed and provided Stopped Triluma: 3 days ago AHA: no Sunscreen: Elta 40 tinted [place]log[place] Photo Agin Leodan Type: IV Sebaceous quality: combination Treatment: Area cleansed with Cetaphil prior to procedure Vacuum Level: 3 Ella Level: 3 Extra Passes: none Post treatment: cleansed with Cetaphil gentle cleanser and Elta 40 tinted applied. Comments: Skin pink post treatment and pt aware may take 1 to 3 days to resolve. May have some flaking ~ day 3. Restart Triluma and Tranexamic in 4 to 7 days once skin normalizes Attending Note I was present and available in suite for the entire procedure. Marsha Gilbert MD documented in this encounter Plan of Treatment Not on file documented as of this encounter Visit Diagnoses Not on filedocumented in this encounter
--- OUTSIDE RECORDS SUMMARY | 2024-10-26 08:31 | XMS_ITS | Encounter Summary ---
Author Organization [facility] Address [address] [place] [address] Phone Care Team Providers Care Licensing Services Clerk Name Role Phone Clark, Heather PRESTON CNP Primary Care Provider [phone] Reason for Referral * Radiology Services (Routine) - Closed Specialty Diagnoses / Procedures Referred By Ty vargas Referred To Contact Radiology Diagnoses Encounter for screening mammogram for malignant neoplasm of breast Procedures GREGORIA SCREENING BILATERAL DIGITAL W CAD W Kelley Galan APRN, CNP [address] [place] [address] Phone: tel: fax: Referral ID Status Reason Start Date Expiration Date Visits Re quested Visits Authorized [id number] Closed 06/17/2023 1 1 Reason for Visit * Radiology Services (Routine) - Closed Specialty Diagnoses / Procedures Referred By Ty vargas Referred To Contact Radiology Diagnoses Encounter for screening mammogram for malignant neoplasm of breast Procedures GREGORIA SCREENING BILATERAL DIGITAL W CAD W Kelley Galan APRN, CNP [address] [place] [address] [address] [place] [address] Phone: tel: fax: Referral ID Status Reason Start Date Expiration Date Visits Re quested Visits Authorized [id number] Closed 06/17/2023 1 1 Encounter Details Date Type Department Care Team (Latest Contact Info) Description 08/23/2023 10:11 AM CDT - 08/23/2023 11:59 PM CDT Hospital [facility] [address] [place] [id number] Kelley Calvin, DIE CUTTER DIAMOND, CLINICAL QUALITY ASSURANCE ASSOCIATE [address] [place] [address] Discharge Disposition: Discharged to home or Selfcare Social History Tobacco Use Types Packs/Day Years Used Date Smoking Tobacco: Never Smokeless Tobacco: Never Alcohol Use Standard Drinks/Week Comments Not Currently 0 (1 standard drink = 0.6 oz pur e alcohol) Comments No Sex and Gender Information Value Date Recorded Sex Assigned at Not on file 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 No / Unsure 08/23/2023 9:34 AM CDT documented as of this encounter Plan of Treatment Not on file documented as of this encounter Procedures Procedure Name Priority Date/Time Associated Diagnosis Comments GREGORIA SCREENING BILATERAL DIGITAL W CAD W JONNY Routine 08/23/2023 10:38 AM CDT Encounter for screening mammogram for malignant neoplasm of breast documented in this encounter Results * GREGORIA SCREENING BILATERAL DIGITAL W CAD W JONNY (08/23/2023 10:38 AM CDT) Anatomical Region Laterality Modality breast Bilateral Mammography 08/23/2023 10:1 4 AM CDT Narrative 08/24/2023 11:17 AM CDT - GREGORIA SCREENING BILATERAL DIGITAL W CAD W JONNY BILATERAL DIGITAL SCREENING MAMMOGRAM 3D/2D WITH CAD WITH MEDIOLATERAL OBLIQUE CRANIOCAUDAL: 08/23/2023 The study was acquired using digital technology and interpreted from soft copy. Current study was also evaluated with ICAD version 7.2. 2D digital mammographic views, as well as 3D digital tomosynthesis were performed in the CC and MLO projections. ?? CLINICAL: Routine screening. Patient has no complaints. No personal history of cancer. No family history of breast cancer. ?? COMPARISONS: Comparison is made to exams dated: ??06/05/2019 [facility], 09/05/2018 [facility], and 10/08/2014 [facility]. ?? BREAST TISSUE:The tissue of both breasts is heterogeneously dense. This may lower the sensitivity of mammography. ?? FINDINGS: No significant masses, calcifications, or other findings are seen in either breast. ?? There has been no significant interval change. IMPRESSION: BI-RAD 1 NEGATIVE There is no mammographic evidence of malignancy. A 1 year screening mammogram is recommended. ?? A letter will be sent to the patient with these results. The patient will be entered into a reminder system with a target due date of 1 year for her next screening exam. Electronically signed by: Alexey Gonsales M.D. ? ll/penrad:08/23/2023 22:14:19 ?? Clam Bed Worker(s): Lizeth ??RT Frederick(R)(M), [facility] letter sent: Normal Exam ?? Reading location: [facility] BI-RADS: 1 Negative Procedure Note Alexey Gonsales MD - 08/24/2023 - GREGORIA SCREENING BILATERAL DIGITAL W CAD W JONNY BILATERAL DIGITAL SCREENING MAMMOGRAM 3D/2D WITH CAD WITH MEDIOLATERAL OBLIQUE CRANIOCAUDAL: 08/23/2023 The study was acquired using digital technology and interpreted from soft copy. Current study was also evaluated with ICAD version 7.2. 2D digital mammographic views, as well as 3D digital tomosynthesis were performed in the CC and MLO projections. CLINICAL: Routine screening. Patient has no complaints. No personal history of cancer. No family history of breast cancer. COMPARISONS: Comparison is made to exams dated: 06/05/2019 [facility], 09/05/2018 [facility], and 10/08/2014 [facility]. BREAST TISSUE:The tissue of both breasts is heterogeneously dense. This may lower the sensitivity of mammography. FINDINGS: No significant masses, calcifications, or other findings are seen in either breast. There has been no significant interval change. IMPRESSION: BI-RAD 1 NEGATIVE There is no mammographic evidence of malignancy. A 1 year screening mammogram is recommended. A letter will be sent to the patient with these results. The patient will be entered into a reminder system with a target due date of 1 year for her next screening exam. Electronically signed by: Alexey aviles/tiesha:08/23/2023 22:14:19 Clam Bed Worker(s): RT Alex(R)(M), [facility] letter sent: Normal Exam Reading location: [facility] BI-RADS: 1 Negative us Kelley Calvin APRN, CNP IMTy MAMMO ORDERABLES Dawn l Result documented in this encounter Visit Diagnoses Diagnosis Encounter for screening mammogram for malignant neoplasm of breast Other screening mammogram documented in this encounter Care Teams Licensing Services Clerk Relationship Specialty Start Date End Date Heather Clark APRN, CNP [address] [place] [address] PCP - General Family Medicine 06/22/23 documented as of this encounter
--- OUTSIDE RECORDS SUMMARY | 2024-10-26 08:31 | XMS_ITS | Encounter Summary ---
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
--- OUTSIDE RECORDS SUMMARY | 2024-10-26 08:31 | XMS_ITS | Clinical Summary ---
Author Organization [facility] Address [address] [place] [address] Phone Care Team Providers Care Party Plan Sales Agent Name Role Phone Heather Clark SILAS PRESTON Primary Care Provider [phone] [phone] Allergies No known active allergies Medications No known medications Social History Tobacco Use Types Packs/Day Years Used Date Smoking Tobacco: Never Smokeless Tobacco: Never Alcohol Use Standard Drinks/Week Comments Not Currently 0 (1 standard drink = 0.6 oz pur e alcohol) Comments No Sex and Gender Information Value Date Recorded Sex Assigned at Not on file 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 Gender Identity Not on file Sexual Orientation Not on file Last Filed Vital Signs Vital Sign Reading Time Taken Comments Blood Pressure 119/69 08/13/2022 7:42 PM CDT Pulse 71 08/13/2022 7:42 PM CDT Temperature 36.3 ??C (97.4 ??F) 08/13/2022 7:42 PM CD T Respiratory Rate 18 08/13/2022 7:42 PM CDT Oxygen Saturation 97% 08/13/2022 7:42 PM CDT Inhaled Oxygen Concentration - - Weight 61.2 kg (135 lb) 08/13/2022 7:42 PM CDT Height 160 cm (5' 3 ) 08/13/2022 7:42 PM CDT Body Mass Index 23.91 08/13/2022 7:42 PM CDT Plan of Treatment Health Maintenance Due Date Last Done Comments Hepatitis C Virus (HCV) Screening 1978 TdaP Immunization 1978 Hepatitis B Immunization (1 of 3 - 19+ 3-dose series) 1997 Pap Smear 1999 Cervical Cancer Screening (CCS) 2008 HPV/Cotest 2008 Colonoscopy 2023 Colorectal Cancer Screening 2023 Influenza Immunization (#1) 2024 08/0 05/2023, 08/24/2022, 10/21/2021, Additional history exists SARS-COV-2 Immunization ( - 2023- season) 2024 09/30/2022, 02/02/2021, 01/12/2021 Respiratory Syncytial Virus (RSV) Immunization (Adult) (1 - 1-dose 75+ series) 2053 Discussion re Starting/Frequency of Mammograms Completed 08/23/2023, 06/05/2019 Meningococcal Immunization (ACWY) Aged Out No longer eligible based on patient's age to complete this topic Pneumococcal Immunization Combined Aged Out No longer eligible based on patient's age to complete this topic Rotavirus Immunization Aged Out No lo nger eligible based on patient's age to complete this topic Procedures Procedure Name Priority Date/Time Associated Diagnosis Comments GREGORIA SCREENING BILATERAL DIGITAL W CAD W JONNY Routine 08/23/2023 10:38 AM CDT Encounter for screening mammogram for malignant neoplasm of breast from Last 3 Months or Most Recently Relevant to Health Maintenance Results * GREGORIA SCREENING BILATERAL DIGITAL W [...] Comparison is made to exams dated: ??06/05/2019 [facility], 09/05/2018 [facility], and 10/08/2014 [facility]. ?? BREAST TISSUE:The tissue of both [...] Alexey Gonsales M.D. ? ll/penrad:08/23/2023 22:14:19 ?? National Account Director(s): Lizeth ??RT Frederick(Kobi)(Comfort), [facility] letter sent: Normal Exam ?? Reading location: [facility] BI-RADS: 1 Negative Procedure Note Alexey Gonsales [...] Comparison is made to exams dated: 06/05/2019 [facility], 09/05/2018 [facility], and 10/08/2014 [facility]. BREAST TISSUE:The tissue of both breasts [...] exam. Electronically signed by: Alexey aviles/tiesha:08/23/2023 22:14:19 National Account Director(s): RT Alex(R)(M), [facility] letter sent: Normal Exam Reading location: [facility] BI-RADS: 1 Negative Kelley Calvin APRN, CNP IMG MAMMO ORDERABLES Dawn l Result from Last 3 Months or Most Recently Relevant to Health Maintenance Insurance [employer]ICAID [employer] Care Teams Party Plan Sales Agent Relationship Specialty Start Date End Date Heather Clark APRN, CNP [address] [place] [address] PCP - General Family Medicine 06/22/23
--- OUTSIDE RECORDS SUMMARY | 2024-10-26 08:31 | XMS_ITS | Encounter Summary ---
Author Organization [facility] Address [address] [place] [address] Phone Care Team Providers Care Tapper Balance Wheel Screw Hole Name Role Phone TampaRomina kumar Selena PRESTON CNP Primary Care Pro vider Reason for Referral * Radiology Services (Routine) - Closed Specialty Diagnoses / Procedures Referred By Contcelio t Referred To Contact Radiology Diagnoses Encounter for screening mammogram for malignant neoplasm of breast Procedures GREGORIA SCREENING BILATERAL DIGITAL W CAD W JONNY Kelley Cavlin APRN, CNP [address] [place] [address] [place] [address] Phone: tel: fax: Referral ID Status Reason Start Date Expiration Date Visits Re quested Visits Authorized [id number] Closed 06/17/2023 1 1 Encounter Details Date Type Department Care Team (Late st Contact Info) Description 06/17/2023 Transcribe Orders [facility] Scheduling [address] [place] [address] Kelley Calvin APRN, CNP [address] [place] [address] [address] [place] [address] Encounter for screening mammogram for malignant neoplasm of breast (Primary Dx) Social History Tobacco Use Types Packs/Day Years Used Date Smoking Tobacco: Never Smokeless Tobacco: Never Alcohol Use Standard Drinks/Week Comments Not Currently 0 (1 standard drink = 0.6 oz pur e alcohol) Comments No Sex and Gender Information Value Date Recorded Sex Assigned at Not on file 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 Current study was also evaluated with [employer] version 7.2. 2D digital mammographic views, as well as 3D digital tomosynthesis were performed in the CC and MLO projections. ?? CLINICAL: Routine screening. Patient has no complaints. No personal history of cancer. No family history of breast cancer. ?? COMPARISONS: Comparison is made to exams dated: ??[facility], 09/[facility]/2018 [facility], and 10/08/2014 [facility]. ?? BREAST TISSUE:The tissue of both breasts [...] Electronically signed by: Alexey Gonsales M.D. ? traci/tiesha:08/23/2023 22:14:19 ?? Jewelry Mold Maker(s): Lizeth ??RT Frederick(R)(M), [facility] letter sent: Normal Exam ?? Reading location: ADEN BI-RADS: 1 Negative Procedure Note Alexey Gonsales [...] Comparison is made to exams dated: 06/05/2019 [facility], 09/05/2018 [facility], and 10/08/2014 [facility]. BREAST TISSUE:The tissue of both breasts is [...] exam. Electronically signed by: Alexey aviles/tiesha:08/23/2023 22:14:19 Jewelry Mold Maker(s): RT Alex(R)(M), [facility] letter sent: Normal Exam Reading location: ADEN BI-RADS: 1 Negative us Kelley Calvin APRN, CNP IM MAMMO ORDERABLES Dawn l Result documented in this encounter Visit Diagnoses Diagnosis Encounter for screening mammogram for malignant neoplasm of breast- Primary Other screening mammogram Encounter for screening mammogram for malignant neoplasm of breast Other screening mammogram documented in this encounter Care Teams Tapper Balance Wheel Screw Hole Relationship Specialty Start Date End Date Romina Mcdaniel APRN, CNP [address] [place] [address] PCP - General Advanced Practice Nurse 10/06/15 documented as of this encounter
--- OUTSIDE RECORDS SUMMARY | 2024-10-26 08:32 | XMS_ITS | CONTINUITY OF CARE DOCUMENT ---
Author Name sreekanth, sreekanth Address Unknown Organization [facility] Address [address] [place] [address] Phone [phone] Care Team Providers Care Wood Calker Name Role Phone Garland Sánchez MD Unavailable [phone] SPECIALIST-CCARMELITA Unavailable PROBLEMS Condition Status Date Provider Notes IRON DEFICIENCY active Garland Sánchez MD Vitamin D deficiency active Garland Hunter Shortness of breath active Donta Hidalgo Hyperlipidemia active Garland Sánchez MD Health maintenance examination active Jenny Sánchez MD Mitral valve prolapse active Garland Sánchez MD Chest pain-type to be determined active Josef Sánchez MD ? Sleep apnea active Garland Sánchez MD ENCOUNTERS Date Type Provider Location Encounter Diag nosis - In-person encounter Office Visit Garland Sánchez MD [facility] HyperlipidemiaHealth maintenance examinationMitral valve prolapseChest pain-type to be determined? Sleep apnea VITAL SIGNS Date Observation Value Provider Body Mass Index (Ratio) 21.63 kg/m2 Zoraida Sánchez MD blood pressure, resting Yes Guille andre O'Gerardo blood pressure, diastolic 72 mm[Hg] Shayna Bragg'Gerardo blood pressure, systolic 106 mm[Hg] Marine Bragg'Gerardo oxygen saturation, oximetry 97 % Lynda O'Gerardo respiratory rate E&M 14 /min Lynda O'Gerardo pulse rate 72 /min Lynda O'Gerardo weight E&M 130 [lb_av] Lynda Regalado height E&M 65 [in_i] Lynda Regalado ALLERGIES No Known Drug Allergies RESULTS Date Observation Value Provider Reference Range Interpretation Location D-dimer quantitative mcg/mL 0.157 ug/mL [facility] Units converted. See lab report for original value. vitamin b12, serum 811.4 pg/mL [facility] 211.0 - 946.0 free thyroxine index 6.1 ??g/dL [facility] 4.4 - 11.4 triiodothyronine uptake 1.1 TBI [facility] 0.8 - 1.3 thyroxine, serum, total 6.7 ??G/DL [facility] 4.5 - 11.7 thyroid stimulating hormone, serum 1.690 ??IU/ML [facility] 0.270 - 4.200 pro brain natriuretic peptide 30.5 pg/mL [facility] 0.0 - 125.0 very low density lipoproteins 19.0 mg/dL [facility] 5.0 - 40.0 LDL/HDL (low-density lipoprotein/high-den sity lipoprotein) ratio 1.4 RATIO [facility] - 4 lipoprotein, beta, serum, point, quantitative, calculated 101.0 (?) [facility] 0.0 - 100.0 High HDL cholesterol, serum 70.0 mg/dL [facility] 45.0 - 65.0 High 4 cholesterol, serum 190.0 mg/dL [facility] 0.0 - 200.0 4 triglyceride, serum, fasting 95.0 mg/dL [facility] 0.0 - 150.0 4 ferritin, serum 137.0 ng/mL [facility] 13.0 - 150.0 4 anion gap, serum 11.6 [facility] - 4 albumin/globulin ratio, serum 2.0 g/dL [facility] 1.1 - 2.5 4 globulin, serum 2.5 [facility] 2.3 - 3.8 4 urea nitrogen/creatinine ratio, serum 20.0 [facility] - 4 Estimated Glomerular Filtration Rate (calc) 146.8 (?) [facility] 59.0 - 4 chloride, serum 100.4 mmol/L [facility] 98.0 - 107.0 4 potassium, serum 4.3 mmol/L [facility] 3.5 - 5.1 4 sodium, serum 140.0 mmol/L [facility] 136.0 - 145.0 4 creatinine, serum 0.5 mg/dL [facility] 0.5 - 1.0 4 carbon dioxide, venous blood 28.0 mmol/L [facility] 22.0 - 29.0 4 albumin, serum 5.0 g/dL [facility] 3.5 - 5.2 4 calcium, serum 9.6 mg/dL [facility] 8.6 - 10.2 4 aspartate aminotransferase (SGOT), serum 16.0 1/L [facility] 0.0 - 32.0 4 alkaline phosphatase, serum 62.0 1/L [facility] 40.0 - 130.0 4 alanine aminotransferase (SGPT), serum 15.0 1/L [facility] 0.0 - 33.0 4 protein, total, serum 7.5 g/dL [facility] 6.6 - 8.7 4 bilirubin, serum, total 0.5 mg/dL [facility] 0.0 - 1.2 4 urea nitrogen, blood 10.0 mg/dL [facility] 6.0 - 20.0 4 blood glucose, random 86.0 mg/dL [facility] 74.0 - 99.0 4 C-reactive protein, serum 0.1 mg/dL [facility] 0.0 - 0.5 4 red blood cell distribution width, size density 44.3 fL [facility] - 4 immature granulocytes, percentage of total cells, blood 0.3 % [facility] - 4 nucleated red blood cells as percent of blood leukocytes 0.0 % [facility] - 4 red blood cell (erythrocyte) count, per high power field 0.0 10*3/UL [facility] - 4 eosinophils as percent of blood leukocytes 3.2 % [facility] - 4 neutrophils as percent of blood leukocytes 64.3 % [facility] - 4 Absolute Neutrophils 3.9 CELLS/UL [facility] 1.5 - 7.8 4 basophils as percent of blood leukocytes 0.5 % [facility] - 4 Absolute Basophils 0.0 CELLS/UL [facility] 0.0 - 0.2 4 monocytes as percent of blood leukocytes 7.6 % [facility] - 4 Absolute Monocytes 0.5 CELLS/UL [facility] 0.2 - 1.0 4 lymphocytes as percent of blood leukocytes 24.1 % [facility] - 4 Absolute Lymphocytes 1.5 CELLS/UL [facility] 0.9 - 3.9 4 mean platelet volume 12.2 (?) [facility] platelet count 221.0 THOUSAND/ UL [facility] 100.0 - 400.0 4 mean corpuscular hemoglobin concentration, RBC 33.0 G/DL [facility] 31.0 - 38.0 4 mean corpuscular hemoglobin, RBC 31.5 pg [facility] 25.0 - 35.0 4 mean corpuscular volume, RBC 95.4 fL [facility] 75.0 - 100.0 4 hematocrit, blood 41.8 % [facility] 35.0 - 55.0 4 hemoglobin, blood 13.8 g/dL [facility] 11.5 - 16.5 4 erythrocyte count, whole blood 4.4 MILLION/U L [facility] 3.5 - 5.5 4 iron, serum 80.0 ug/dL [facility] 25.0 - 156.0 4 iron saturation percent, serum 19.8 % [facility] 20.0 - 50.0 Low 4 iron binding capacity, total 404.6 ug/dL [facility] 250.0 - 450.0 4 hemoglobin A1C, blood, as % of total hemoglobin 4.8 % [facility] 4.0 - 5.6 HISTORY OF MEDICATION USE Medication Status Instructions Dates Provider Indications Com ments VITAMIN D3 64966 UNIT ORAL TABLET active TAKE ONE TAB BY MOUTH WEEKLY Garland Sánchez MD let pt know vit d is low ATENOLOL 50 MG ORAL TABLET active TAKE ONE-HALF TABLET BY MOUTH ONCE A DAY as needed Lynda O'Gerardo #15, 30 days supply, Prescribed by AKIN KING, Filled 12/12/2016 MELOXICAM 15 MG ORAL TABLET active TAKE 1 TABLET BY MOUTH EVERY DAY as needed Lynda O'Gerardo #30, 30 days supply, Prescribed by CARMELITA HADDAD, Filled 02/16/2017 CYCLOBENZAPRINE HCL 10 MG ORAL TABLET active TAKE ONE TABLET BY MOUTH AT BEDTIME NEEDED Lynda O'Gerardo #30, 30 days supply, Prescribed by CARMELITA HADDAD, Filled 03/07/2017 SOCIAL HISTORY Date Observation Value Provider social history reviewed E&M revi ewed - no changes required Garland Sánchez MD social history E&M S moking History: Tacos guevara has never smoked. Garland Sácnhez MD smoking status Never smoker Lynda Regalado FAMILY HISTORY Family Member Condition First Degree Blood Relative No Known Fam chin History INSURANCE PROVIDERS Payer name Policy type / Coverage type [facility] democrat [facility] (2[facility] Medicaid [id number] ADVANCE DIRECTIVES Name Date DISCUSSED - NO DECISION MADE TREATMENT PLAN Date Name Performer Cardiology:mayh sx will silva Jenny Sánchez MD Cardiology Garland Sánchez MD Cardiology:mild 2010wotj mp ,r H bairon Sánchez MD Cardiology:198 total 2009 Garland Sánchez MD Cardiology:nml tsh and xray 2009 Garland Sánchez MD Date Name VITAMIN D, 25-HYDROX Y, LC/MS/MS HEMOGLOBIN A1c TROPONIN I D-DIMER, QUANTITATIV E C-REACTIVE PROTEIN IRON AND TOTAL IRON BINDING CAPACITY VITAMIN B12 FERRITIN CBC (INCLUDES DIFF/P LT) COMPREHENSIVE METABO LIC PANEL, W/EGFR LIPID PANEL THYROID PANEL WITH T SH, 3RD GENERATION PROBNP, N TERMINAL DLCO - 20653 FRC - 45614 FVC - 53111 X-Ray, Chest - Routi ne CT, Coronary Calcium Score STR - Routine Complete Echo HISTORY OF PROCEDURES Procedure Date Procedure Name Provider Procedure Notes S tatus Stress EKG Brian Rivas MD complet ed FVC / MVV - 90553 Garland Sánchez MD c ompleted FRC - 73275 Garland Sánchez MD complet ed SpO2 - 27463 Garland Sánchez MD comple jerry DLCO - 19950 Garland Sánchez MD comple jerry CT- Coronary CA score Garland Sánchez MD completed EKG Garland Sánchez MD complete d SNOMED-CT: [id number] Current Medications Documented Garland Sánchez MD completed
--- OUTSIDE RECORDS SUMMARY | 2024-10-26 08:32 | XMS_ITS | Encounter Summary ---
Author Organization [facility] Address [address] [place] [address] Phone Care Team Providers Care Wireless Consultant Name Role Phone VioletaRomina Selena REINOSON, SILAS Primary Care Pro vider Reason for Visit * Reason Comments Rash Encounter Details Date Type Department Care Team (Late st Contact Info) Description 08/13/2022 7:47 PM CDT - 08/13/2022 8:12 PM CDT Emergency [facility] Emergency [address] [place] [address] Vinicius Raymond, PAC [address] [place] [address] Urticaria Discharge Disposition: Discharged to home or Selfcare Social History Tobacco Use Types Packs/Day Years Used Date Smoking Tobacco: Never Smokeless Tobacco: Never Alcohol Use Standard Drinks/Week Comments Not Currently 0 (1 standard drink = 0.6 oz pur e alcohol) Comments No Sex and Gender Information Value Date Recorded Sex Assigned at Not on file Legal Sex Female 3:35 PM EMS DRIVER Gender Identity Not on file Sexual Orientation Not on file COVID-19 Exposure Response Date Recorded In the last 10 days, have yo u been in contact with someone who was confirmed or suspected to have Coronavirus/COVID-19? No / Unsure 08/13/2022 7:32 PM CDT documented as of this encounter Last Filed Vital Signs Vital Sign Reading [...] Mass Index 23.91 08/13/2022 7:42 PM CDT documented in this encounter Discharge Instructions * Attachments The following attachments cannot be sent through Care Everywhere. * Hives [id number] (Puerto Rican) documented in this encounter Medications at Time of Discharge predniSONE (DELTASONE) 20 MG Tablet Take 1 Tablet by mouth 2 times daily for 5 days. 10 Tablet 08/13/2022 08/18/2022 documented as of this encounter ED Notes * Bonifacio Love RN - 08/13/2022 8:08 PM CDT Patient discharged. Discharge instructions and patient educational material reviewed with patient; questions and concerns addressed; patient verbalizes understanding, using teach back. Patient was given 1 prescriptions. Patient was informed no drinking alcohol, driving or operating heavy machinery while taking narcotics or muscle relaxants. Patient discharged per ambulatory mode with self as responsible libertarian. * Vinicius Raymond, NURIA - 08/13/2022 7:51 PM CDT Chief Complaint Patient presents with ??? Rash Melody Aguayo is a 42 y.o. female who presents to the ED c/o pruritic urticarial rash present for 3 days. Patient states rash started on bilateral lower ext and has progressed to arms and back. No known allergens. No changes to medications, foods, topical, soap/detergents etc. No SOB, throat swelling ordifficulty swallowing. History reviewed. No pertinent past medical history. No current facility-administered medications for this encounter. Current Outpatient Medications Medication Sig Dispense Refill ??? predniSONE (DELTASONE) 20 MG Tablet Take 1 Tablet by mouth 2 times daily for 5 days. 10 Tablet 0 No Known Allergies History reviewed. No pertinent past medical history. No past surgical history on file. Social History Socioeconomic History ??? Marital status: Spouse name: Not on file ??? Number of children: Not on file ??? Years of education: Not on file ??? Highest education level: Not on file Occupational History ??? Not on file Tobacco Use ??? Smoking status: Never Smoker ??? Smokeless tobacco: Never Used Substance and Sexual Activity ??? Alcohol use: Not Currently ??? Drug use: Never ??? Sexual activity: Not on file Other Topics Concern ??? Not on file Social History Narrative ??? Not on file BP 119/69 Pulse 71 Temp 97.4 ??F (36.3 ??C) (Tympanic) Resp 18 Ht 5' 3 (1.6 m) Wt 135 lb(61.2 kg) SpO2 97% BMI 23.91 kg/m?? Review of Systems Constitutional: Negative for chills, fatigue and fever. HENT: Negative for congestion and sore throat. Respiratory: Negative for cough, chest tightness, shortness of breath and wheezing. Cardiovascular: Negative for chest pain and palpitations. Gastrointestinal: Negative for abdominal pain, constipation, diarrhea, nausea and vomiting. Genitourinary: Negative for dysuria, frequency, hematuria and urgency. Musculoskeletal: Negative for arthralgias, back pain and myalgias. Skin: Positive for rash. Neurological: Negative for dizziness, light-headedness and headaches. All other systems reviewed and are negative. Physical Exam Vitals and nursing note reviewed. Constitutional: General: She is not in acute distress. Appearance: She is well-developed. She is not diaphoretic. HENT: Head: Normocephalic and atraumatic. Eyes: Pupils: Pupils are equal, round, and reactive to light. Neck: Thyroid: No thyromegaly. Cardiovascular: Rate and Rhythm: Normal rate and regular rhythm. Heart sounds: Normal heart sounds. No murmur heard. Pulmonary: Effort: Pulmonary effort is normal. No respiratory distress. Breath sounds: Normal breath sounds. No wheezing, rhonchi or rales. Abdominal: General: Bowel sounds are normal. There is no distension. Palpations: Abdomen is soft. Tenderness: There is no abdominal tenderness. There is no guarding. Musculoskeletal: General: No tenderness. Normal range of motion. Cervical back: Normal range of motion and neck supple. Skin: General: Skin is warm and dry. Coloration: Skin is not pale. Findings: Rash present. No erythema. Rash is urticarial. Neurological: Mental Status: She is alert and oriented to person, place, and time. Cranial Nerves: No cranial nerve deficit. Psychiatric: Behavior: Behavior normal. No orders to display Procedures Imaging Results None Labs Reviewed - No data to display MDM Coding Clinical Impression 1. Urticaria Patient started on steroid today. PCP follow up in 2-3 days. Return to ED for worsening sxs The patient remained stable throughout their ED stay. My clinical impression was discussed with thepatient/family. Labs and radiology results were reviewed with them. I gave them the opportunity to ask questions, and addressed them as completely as possible given the information available at present. The therapeutic plan was discussed, advised to take medications as instructed, instructions weregiven and the importance of primary care follow up was stressed and encouraged. The patient/family voiced understanding of the plan, indications to return, and the need for follow up. Cosigned by Zeus Doty MD at 08/14/2022 12:07 AM CDT * Bonifacio Love RN - 08/13/2022 7:45 PM CDT Ppt to ED with c/o Itchy rash x 1 day. Pt states she noticed it yesterday and it has progressively gotten worse over the day. Pt denies any SOB or facial swelling. Pt does have multiple medium size hives on extremities. documented in this encounter Plan of Treatment Not on file documented as of this encounter Visit Diagnoses Diagnosis Urticaria- Primary Urticaria, unspecified documented in this encounter Care Teams Wireless Consultant Relationship Specialty Start Date End Date Romina Mcdaniel, SAP BUSINESS INTELLIGENCE CONSULTANT, RUBBER TIRE CURER [address] [place] [id number] PCP - General Advanced Practice Nurse 10/06/15 documented as of this encounter
--- OUTSIDE RECORDS SUMMARY | 2024-10-26 22:51 | XMS_ITS | Encounter Summary ---
Author Organization [facility] Address [address] [place] [address] Care Team Providers Care Drawing Press Operator Name Role Phone Unavailable Primary Care Provider Unavailabl e Reason for Visit * Reason Comments Follow-up Follow up for facial pigmentation Encounter Details Date Type Department Care Team (Late st Contact Info) Description 01/16/2019 9:30 AM CDT Cosmetic Visit [facility] [address] [place] [address] Marsha Gilbert MD [address] [address] Melasma Social History Tobacco Use [...] HPI: Melody Aguayo a 38 year old german female presents for follow up of melasma. [...] effects of treatment: none -Works in a [employer] Mon-Sat -No personal or family hx [...]
--- OUTSIDE RECORDS SUMMARY | 2024-10-26 22:51 | XMS_ITS | Referral Summary ---
Author Organization [facility] Address [address] [place] [address] Care Team Providers Care Women'S Lacrosse Coach Name Role Phone Unavailable Primary Care Provider Unavailabl e Source Comments [facility],non-owned Affiliates and Associated Physician Practices is amultiple site organization consisting of ambulatory clinics and hospital sitesin [place], [place], [place] and [place]. This disclosure is being madepursuant to the Care Everywhere program and may not contain all information available regarding this patient. Last updated 18.[facility] Allergies No known active allergies Medications * [...]
--- OUTSIDE RECORDS SUMMARY | 2024-10-26 22:51 | XMS_ITS | Encounter Summary ---
Author Organization [facility] Address [address] [place] [address] [address] [place] [address] Care Team Providers Care Endoscopy Registered Nurse Name Role Phone Unavailable Primary Care Provider [...]
--- OUTSIDE RECORDS SUMMARY | 2024-10-26 22:51 | XMS_ITS | Encounter Summary ---
Author Organization [facility] Address [address] [place] [address] Care Team Providers Care Appian Bpm Developer Name Role Phone Unavailable Primary Care Provider Unavailabl e Reason for Visit * Reason Onset Date Comments Procedure Question 01/17/2019 Encounter Details Date Type Department Care Team (Late st Contact Info) Description 01/17/2019 Telephone [facility] [address] [place], [place] [id number] Elisha Domínguez Update Information Procedure Question Social [...] would send the EMLA cream to her [facility] pharmacy and I will send instructions to her home She verbalized understanding documented in this encounter Plan of Treatment Not on file documented as of this encounter Visit Diagnoses Not on filedocumented in this encounter
--- OUTSIDE RECORDS SUMMARY | 2024-10-26 22:51 | XMS_ITS | Encounter Summary ---
Author Organization [facility] Address [address] [place] [address] Care Team Providers Care Service Parts Driver Name Role Phone Unavailable Primary Care Provider Unavailabl e Encounter Details Date Type Department Care Team (Late st Contact Info) Description 03/19/2019 9:50 AM CDT Cosmetic Visit [facility] [address] [place] [address] Carmita Ibarra MD [address] [facility] [address], [place] [address] Melasma Social History Tobacco Use [...] Acid and TriLUma) will be sent to [facility] [phone] They should contact you for payment etc [...] notice improvement. Please call the office at [phone] if you have any questions. [facility] [...]
--- OUTSIDE RECORDS SUMMARY | 2024-10-26 22:51 | XMS_ITS | Encounter Summary ---
Author Organization [facility] Address [address] [facility] 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 We recommend [employer] Ferulic serum. You [...]
--- OUTSIDE RECORDS SUMMARY | 2024-10-26 22:51 | XMS_ITS | Encounter Summary ---
Author Organization [facility] Address [address] [place] [address] Care Team Providers Care Elevator Service Technician Name Role Phone Unavailable Primary Care Provider Unavailabl e Reason for Visit * Reason Comments Brown Spots melasma follow up Encounter Details Date Type Department Care Team (Late Contact Info) Description 06/17/2020 9:30 AM CDT Cosmetic Visit [facility] [address] [place] [place] [address] Marsha Gilbert MD [address] [address] Melasma Social History Tobacco Use [...]
--- OUTSIDE RECORDS SUMMARY | 2024-10-26 22:51 | XMS_ITS | Encounter Summary ---
Author Organization [facility] Address [address] [facility] [place] [address] Care Team Providers Care Food And Beverage Director Name Role Phone Unavailable Primary Care Provider Unavailabl e Reason for Visit * Reason Comments Follow-up Patient here for f/u melasma Encounter Details Date Type Department Care Team (Late st Contact Info) Description 06/12/2019 9:30 AM CDT Cosmetic Visit [facility] [address] [place] [address] Marsha Gilbert MD [address] [facility] [address] [place] [address] Melasma Social History Tobacco Use [...] Tolerating both topicals Stress sun protection F/u Varun or Oct Marsha Gilbert MD documented in this encounter Plan of Treatment Not on file documented as of this encounter Visit Diagnoses Diagnosis Melasma Other dyschromia documented in this encounter
--- OUTSIDE RECORDS SUMMARY | 2024-10-26 22:51 | XMS_ITS | Encounter Summary ---
Author Organization [facility] Address [address] [place] [address] [address] [place] [address] Care Team Providers Care Stroke Program Coordinator Name Role Phone Unavailable Primary Care Provider [...]
--- OUTSIDE RECORDS SUMMARY | 2024-10-26 22:51 | XMS_ITS | Encounter Summary ---
Author Organization [facility] Address [address] [facility] [place] [address] Care Team Providers Care Fruit Inspector Name Role Phone Unavailable Primary Care Provider Unavailabl e Reason for Visit * Reason Comments Refill Request Tri-Saba refill requ est Encounter Details Date Type Department Care Team (Late st Contact Info) Description 02/05/2019 Refill [facility] [address] [place] [address] Marsha Gilbert MD [address] [address] Refill Request (Tri-Saba refill request) [...]
--- OUTSIDE RECORDS SUMMARY | 2024-10-26 22:51 | XMS_ITS | Encounter Summary ---
Author Organization [facility] Address [address] [facility] [place] [address] Care Team Providers Care Pot Reliner Name Role Phone Unavailable Primary Care Provider Unavailabl e Reason for Visit * Reason Comments Brown Spots melasma; microdermab rasion Encounter Details Date Type Department Care Team (Late st Contact Info) Description 04/17/2019 9:30 AM CDT Cosmetic Visit [facility] [address] [place] [address] Marsha Gilbert MD [address] [address] Social History Tobacco Use Types [...] irritate the skin, such as: glycolic acid, Epworth??,or Retin-A ??, or Triluma The treated area [...] or discomfort. Please call the office at [phone] to speak with Elisha if you have any questions or problems arise. After hours or on weekends, please call [phone] and ask for the Dermatology physician search engine optimization consultant. Please remember that multiple treatments may be [...]
--- OUTSIDE RECORDS SUMMARY | 2024-10-26 22:51 | XMS_ITS | Encounter Summary ---
Author Organization [facility] Address [address] [facility] [place] [address] Care Team Providers Care Strike Out Machine Operator Name Role Phone Unavailable Primary Care Provider Unavailabl e Reason for Visit * Reason Onset Date Comments Brown Spots 12/03/2019 melasma Encounter Details Date Type Department Care Team (Late st Contact Info) Description 12/03/2019 Telephone [facility] [address] [place] [address] Elisha Domínguez Update Information Brown [...] my # with information requested and/or questions ERIOLOGY PROFESSOR * Telephone Encounter - Hawa Diane DO - 12/03/2019 1:06 PM BACTERIOLOGY PROFESSOR Please ask patient to resume TriLuma until end of December 2019 and then switch to Altreno. Hawa Diane DO Dermatology Resident, PGY-4 12/03/2019 1:07 PM ERIOLOGY PROFESSOR * Telephone Encounter - Eilsha Domínguez - 12/03/2019 9:57 AM CST Per [...] advise, I can call her back ?? ERIOLOGY PROFESSOR documented in this encounter Plan of Treatment Not on file documented as of this encounter Visit Diagnoses Not on filedocumented in this encounter
--- OUTSIDE RECORDS SUMMARY | 2024-10-26 22:51 | XMS_ITS | Encounter Summary ---
Author Organization [facility] Address [address] [facility] [place] [address] Care Team Providers Care Agronomy Teacher Name Role Phone Unavailable Primary Care Provider Unavailabl e Reason for Visit * Reason Comments Refill Request Encounter Details Date Type Department Care Team (Late st Contact Info) Description 03/10/2022 Refill [facility] [address] [place] [address] Nain Winchester MD [address] [facility] [address] [place] [phone] Refill Request Social History Tobacco Use Types [...] Miscellaneous Notes * Telephone Encounter - Linda Roberot MA - 03/11/2022 8:26 AM CDT LV: 12-14-21 NV: 06-14-22 RTC: 6 months documented in this encounter Plan of Treatment Not on file documented as of this encounter Visit Diagnoses Diagnosis Melasma Other dyschromia documented in this encounter
--- OUTSIDE RECORDS SUMMARY | 2024-10-26 22:51 | XMS_ITS | Clinical Summary ---
Author Organization [facility] [employer] Address [address] [facility] [address] [place] [address] Care Team Providers Care Electric Scoop Operator Name Role Phone Unavailable Primary Care Provider Unavailabl e Source Comments [facility] [employer],non-owned Affiliates and Associated Physician Practices is amultiple site organization consisting of ambulatory clinics and hospital sitesin [place], [place], [place] and [place]. This disclosure is being madepursuant to the Care Everywhere program and may not contain all information available regarding this patient. Last updated 18.[employer] Allergies No known active allergies Medications [...]
--- OUTSIDE RECORDS SUMMARY | 2024-10-26 22:51 | XMS_ITS | Encounter Summary ---
Author Organization [facility] Address [address] [place] [address] Care Team Providers Care Vice President Pharmacy Name Role Phone Unavailable Primary Care Provider Unavailabl e Reason for Visit * Reason Onset Date Comments Refill Request 08/09/2019 Encounter Details Date Type Department Care Team (Late st Contact Info) Description 08/09/2019 Refill [facility] [address] [place] [address] Marsha Gilbert MD [address] [address] Refill Request Social History Tobacco [...]
--- OUTSIDE RECORDS SUMMARY | 2024-10-26 22:51 | XMS_ITS | Encounter Summary ---
Author Organization [facility] Address [address] [facility] [place] [address] Care Team Providers Care Wireless Manager Name Role Phone Unavailable Primary Care Provider Unavailabl e Reason for Visit * Reason Comments Follow-up melasma and rosacea; states tretinoin and TNS results in dark skin; ordered TriLuma on [employer]; uses Elta 46 Encounter Details Date Type Department Care Team (Late st Contact Info) Description 12/14/2021 9:10 AM APPLICATION ENGINEER Cosmetic Visit [facility] [address] [place] [address] Marsha Gilbert MD [address] [facility] [address] [place] [address] Melasma Social History Tobacco Use [...] Nain Winchester MD - 12/14/2021 9:31 AM APPLICATION ENGINEER Your melasma is improving. Continue tri-tima 9 months on and take 3 month break Start Differin gel once a day at night. This is available over the counter at drug stores such as [employer]. We recommend [employer] Ferulic serum. You [...] as 3 months before you notice improvement ICATION ENGINEER documented in this encounter Progress Notes * [...] erythema cheeks with telangectasia Marsha Gilbert MD ICATION ENGINEER documented in this encounter Plan of Treatment Not on file documented as of this encounter Visit Diagnoses Diagnosis Melasma Other dyschromia documented in this encounter
--- OUTSIDE RECORDS SUMMARY | 2024-10-26 22:51 | XMS_ITS | Encounter Summary ---
Author Organization [facility] Address [address] [place] [address] Care Team Providers Care Regional Marketing Director Name Role Phone Unavailable Primary Care Provider Unavailabl e Reason for Visit * Reason Onset Date Comments General 05/01/2019 report skin dark ening Encounter Details Date Type Department Care Team (Late st Contact Info) Description 05/01/2019 Telephone [facility] [address] [place] [address] Marsha Gilbert MD [address] [phone] General (report skin darkening) Social History Tobacco [...]
--- OUTSIDE RECORDS SUMMARY | 2024-10-26 22:51 | XMS_ITS | CONTINUITY OF CARE DOCUMENT ---
Author Name sreekanth, sreekanth Address Unknown Organization [facility] Address [address] [facility] [address] [place] [address] Phone [phone] Care Team Providers Care Accuracy Expert Name Role Phone Garland Sánchez MD Unavailable BOO CONSTRUCTION CONSULTANTOpalCCARMELITA Unavailable PROBLEMS Condition Status Date Provider Notes IRON DEFICIENCY active Garland Sánchez MD Vitamin D deficiency active Garland Hunter Shortness of breath active Donta Hidalgo ? Sleep apnea active Garland Sánchez MD Chest pain-type to be determined active Josef Sánchez MD Mitral valve prolapse active Garland Sánchez MD Health maintenance examination active Jenny Sánchez MD Hyperlipidemia active Garland Sánchez MD ENCOUNTERS Date Type Provider Location Encounter Diag nosis - In-person encounter Office Visit Garland Sánchez MD [facility] Office HyperlipidemiaHealth maintenance examinationMitral valve prolapseChest pain-type [...] 1.2 4 urea nitrogen, blood 10.0 mg/dL [facility] 6.0 - 20.0 4 blood glucose, random 86.0 mg/dL [facility] 74.0 - 99.0 4 C-reactive protein, serum 0.1 mg/dL [facility] - 0.5 4 red blood cell distribution width, size density 44.3 fL [facility] - 4 immature granulocytes, percentage of total cells, blood 0.3 % [facility] - 4 nucleated red blood cells as [...] 3.9 4 mean platelet volume 12.2 (?) [facility] platelet count 221.0 THOUSAND/ [...] Dates Provider Indications Com ments VITAMIN D3 64269 UNIT ORAL TABLET active TAKE ONE TAB [...] History: Tacos guevara has never smoked. Garland Sánchez MD smoking status Never smoker Lynda Regalado FAMILY HISTORY Family Member Condition First Degree Blood Relative No Known Fam chin History INSURANCE PROVIDERS Payer name Policy type / Coverage type [facility] party [facility] ([facility] Medicaid [id number] ADVANCE DIRECTIVES Name Date DISCUSSED - NO [...] 3RD GENERATION PROBNP, N TERMINAL DLCO - 77677 FRC - 99899 FVC - 84292 X-Ray, Chest - Routi ne CT, Coronary Calcium Score STR - Routine Complete Echo HISTORY OF PROCEDURES Procedure Date Procedure Name Provider Procedure Notes S tatus Stress EKG Brian Rivas MD complet ed FVC / MVV - 51189 Garland Sánchez MD c ompleted FRC - 92297 Garland Sánchez MD complet ed SpO2 - 66490 Garland Sánchez MD comple jerry DLCO - 70725 Garland Sánchez MD comple jerry CT- Coronary CA score Garland Sánchez MD completed EKG Garland Sánchez MD complete d SNOMED-CT: [id number] Current Medications Documented Garland Sánchez MD completed
--- OUTSIDE RECORDS SUMMARY | 2024-10-26 22:51 | XMS_ITS | Encounter Summary ---
Author Organization [facility] Address [address] [place] [address] Care Team Providers Care Equipment Mechanic Name Role Phone Unavailable Primary Care Provider Unavailasad e Reason for Visit * Reason Onset Date Comments Brown Spots 12/11/2019 melasma Refill Request 12/19/2019 Encounter Details Date Type Department Care Team (Late st Contact Info) Description 12/11/2019 Telephone [facility] [address] [place], [place] [id number] Elisha Domínguez Update Information Brown Spots (melasma); [...] 9:48 AM CST Received refill request from [facility] for Tranexamic acid compound cream. Pls advise. E ROOM OPERATOR * Telephone Encounter - Hawa Diane DO - 12/11/2019 1:59 PM SMOKE ROOM OPERATOR As discussed previously. Recommend trial of Altreno after she completes TriLuma cycle at end of December 2019. It is possible her skin got darker due to stopping the tranexamic acid and TriLuma simultaneously, instead of continuing TriLuma for a longer period. If she truly cannot tolerate Altreno, will discuss other alternatives at that time. Hawa Diane DO Dermatology Resident, PGY-4 12/11/2019 2:01 PM E ROOM OPERATOR * Telephone Encounter - Elisha Domínguez - [...] the sunscreen in the day. Please advise E ROOM OPERATOR documented in this encounter Plan of Treatment Not on file documented as of this encounter Visit Diagnoses Not on filedocumented in this encounter
--- OUTSIDE RECORDS SUMMARY | 2024-10-26 22:51 | XMS_ITS | Encounter Summary ---
Author Organization [facility] Address [address] [facility] [place] [address] Care Team Providers Care Flexographic Printing Press Operator Name Role Phone Unavailable Primary Care Provider Unavailabl e Reason for Visit * Reason Comments Refill Request Encounter Details Date Type Department Care Team (Late st Contact Info) Description 06/25/2022 Refill [facility] [address] [place] [address] Nain Winchester MD [address] [facility] [address] [place] [phone] Refill Request Social History Tobacco Use Types [...]
--- OUTSIDE RECORDS SUMMARY | 2024-10-26 22:51 | XMS_ITS | Encounter Summary ---
Author Organization [facility] Address [address] [facility] [place] [address] Care Team Providers Care Director Banking Name Role Phone Unavailable Primary Care Provider Unavailabl e Reason for Visit * Reason Comments Follow-up Patient here for f/u melasma. She reports it is better, Encounter Details Date Type Department Care Team (Late st Contact Info) Description 11/06/2019 9:30 AM GLOBE CLEANER Cosmetic Visit [facility] [address] [place] [address] Marsha Gilbert MD [address] [phone] Melasma Social History Tobacco Use [...] Marcela Spain MD - 11/06/2019 10:17 AM GLOBE CLEANER Thank you for visiting the [facility] today! 1) Stop tranexamic acid 2) Continue using TriLuma until the end of December 2019. Then STOP TriLuma at this time (keep TriLumain fridge) 3) In December 2019, start Altreno to entire face every night. ONLY use Altreno until July 2020, then you can restart TriLuma 4) Continue using sunscreen to face every day. Please return to clinic in July 2020. E CLEANER documented in this encounter Progress Notes * [...] daily RTC in Jul 2020 Marcela Spain [facility] Dermatology Resident, PGY-2 Attending Marked improvement in melasma Stress sun protection Remind of chronic nature Had me face time with her sister in [facility] who looks to have melasma as well Marsha Gilbert MD E CLEANER documented in this encounter Plan of Treatment Not on file documented as of this encounter Visit Diagnoses Diagnosis Melasma Other dyschromia documented in this encounter
--- OUTSIDE RECORDS SUMMARY | 2024-10-26 22:51 | XMS_ITS | Encounter Summary ---
Author Organization [facility] Address [address] [facility] [place] [address] Care Team Providers Care Loin Puller Name Role Phone Unavailable Primary Care Provider Unavailabl e Reason for Visit * Reason Comments Brown Spots melasma; micro-needl ing # 1 Encounter Details Date Type Department Care Team (Late st Contact Info) Description 03/06/2019 9:30 AM CDT Cosmetic Visit [facility] [address] [place] [address] Marsha Gilbert MD [address] [phone] Social History Tobacco Use Types [...] 03/06/2019 8:59 AM CDT Post-Microneedling Instructions Call [phone] during office hours with any questions/concers Call [phone] ([facility] Drop Tester) to page composition professor web content director if there are any issues in the [...] 03/06/2019 12:13 PM CDT Procedure: ??Micro-needling ? injection maintenance technician: ??Elisha Domínguez RN?Attending Physician: ??Marsha Gilbert [...]
--- OUTSIDE RECORDS SUMMARY | 2024-10-26 22:51 | XMS_ITS | Encounter Summary ---
Author Organization [facility] Address [address] [facility] [place] [address] Care Team Providers Care Dairy Helper Name Role Phone Unavailable Primary Care Provider Unavailabl e Reason for Visit * Reason Comments Consultation Hyperpigmentation Encounter Details Date Type Department Care Team (Late st Contact Info) Description 10/18/2018 8:40 AM PROOF PLATE MAKER Cosmetic Visit [facility] [address] [place] [address] Marsha Gilbert MD [address] [address] Social History Tobacco Use Types [...] Vinicius Yanes MD - 10/18/2018 8:58 AM PROOF PLATE MAKER It was a pleasure seeing in clinic [...] notice improvement. Please call the office at [phone] if you have any questions. SUNSCREENS [facility] [...] necessary to adequately cover the entire body. F PLATE MAKER documented in this encounter Progress Notes * Vinicius Yanes MD - 10/18/2018 8:48 AM CST Cosmetic Consult Visit HPI Melody Aguayo a 38 y.o. Malay female who presents for a cosmetic consult. She is most concerned about dark patches on face ?? Bought Gregorio Brightening Spotless Oil ([facility]) - herbal extracts and glycerin and Dr. Saravia [employer] ?? Has had approx 10 chemical peels at a Spa (at [facility]) - started last October and did [...] as to the chronic nature of this hizjdesbk-dl-ougit benign condition aswell as its relationship to [...] vs. PO tranexamic acid Vinicius Yanes MD [facility] Dermatology Resident, PGY-4 Attending Malay female with brown spot each cheek for several years but worsened this last year. Tried abotanical serum with lavender and then started getting peels at [facility] on [address]. Not sure what type. Had one every [...] or topically but may have clotting s/e [place] [facility] stressed Marsha Gilbert MD F PLATE MAKER documented in this encounter Plan of Treatment Not on file documented as of this encounter Visit Diagnoses Not on filedocumented in this encounter
--- OUTSIDE RECORDS SUMMARY | 2024-10-26 22:51 | XMS_ITS | Patient Health Summary ---
Author Organization [facility] Address [address] [facility] [address] [place] [address] Care Team Providers Care Security Solutions Architect Name Role Phone Unavailable Primary Care Provider Unavailabl e Note from [facility],non-owned Affiliates and Associated Physician Practices is amultiple site organization consisting of ambulatory clinics and hospital sitesin [place], [place], [place] and [place]. This disclosure is being madepursuant to the Care Everywhere program and may not contain all information available regarding this patient. Last updated 18.[facility] Allergies No known active allergies Medications * [...]
--- OUTSIDE RECORDS SUMMARY | 2024-10-26 22:52 | XMS_ITS | Encounter Summary ---
Author Organization [facility] Care Team Providers Care Robotic Machine Operator Name Role Phone Heather Clark APRN, CNP Primary Care Provider [phone] Encounter Details Date Type Department Care Team [...] on file Legal Sex Female 3:35 PM CLIENT SOLUTIONS SPECIALIST Gender Identity Not on file Sexual Orientation [...] on filedocumented in this encounter Care Teams Robotic Machine Operator Relationship Specialty Start Date End Date Heather Clark APRN, CNP [address] [place] [address] PCP - General Family Medicine 06/22/23 documented as of this encounter
--- OUTSIDE RECORDS SUMMARY | 2024-10-26 22:52 | XMS_ITS | Encounter Summary ---
Author Organization [facility] Address [address] [place] [address] Phone Care Team Providers Care Automatic Spreader Operator Name Role Phone PungoteagueRomina kumar Selena PRESTON CNP Primary Care Pro vider Reason for Referral * Radiology Services (Routine) - Closed Specialty Diagnoses / Procedures Referred By Contcelio t Referred To Contact Radiology Diagnoses Encounter for screening mammogram for malignant neoplasm of breast Procedures GREGORIA SCREENING BILATERAL DIGITAL W CAD W JONNY Kelley Calvin APRN, CNP [address] [place] [address] [place] [address] Phone: tel: fax: Referral ID Status Reason Start Date Expiration Date Visits Re quested Visits Authorized [id number] Closed 06/17/2023 1 1 Encounter Details Date Type Department Care Team (Late st Contact Info) Description 06/17/2023 Transcribe Orders [facility] Scheduling [address] [place] [address] Kelley Calvin APRN, CNP [address] [place] [address] [address] [place] [address] Encounter for screening mammogram for malignant neoplasm of breast (Primary Dx) Social History Tobacco Use Types Packs/Day Years Used Date Smoking Tobacco: Never Smokeless Tobacco: Never Alcohol Use Standard Drinks/Week Comments Not Currently 0 (1 standard drink = 0.6 oz pur e alcohol) Comments No Sex and Gender Information Value Date Recorded Sex Assigned at Not on file Legal Sex Female 3:35 PM FISH WORM GROWER Gender Identity Not on file Sexual Orientation [...] copy. Current study was also evaluated with Distill version 7.2. 2D digital mammographic views, as well as 3D digital tomosynthesis were performed in the CC and MLO projections. ?? CLINICAL: Routine screening. Patient has no complaints. No personal history of cancer. No family history of breast cancer. ?? COMPARISONS: Comparison is made to exams [facility]: [facility], [facility]2018 [facility], and 10/08/2014 [facility]. ?? BREAST TISSUE:The tissue of both [...] Alexey Gonsales M.D. ? traci/tiesha:08/23/2023 22:14:19 ?? Sales Ledger Administrator(s): Lizeth ??RT Frederick(R)(M), [facility] letter sent: Normal Exam ?? Reading [...] Comparison is made to exams dated: 06/05/2019 [facility], 09/05/2018 [facility], and 10/08/2014 [facility]. BREAST TISSUE:The tissue of both breasts [...] exam. Electronically signed by: Alexey aviles/tiesha:08/23/2023 22:14:19 Sales Ledger Administrator(s): RT Alex(R)(M), [facility] letter sent: Normal Exam Reading location: [facility] BI-RADS: 1 Negative us Kelley Calvin APRN, CNP IM MAMMO ORDERABLES Dawn l Result documented in this encounter Visit Diagnoses Diagnosis Encounter for screening mammogram for malignant neoplasm of breast- Primary Other screening mammogram Encounter for screening mammogram for malignant neoplasm of breast Other screening mammogram documented in this encounter Care Teams Automatic Spreader Operator Relationship Specialty Start Date End Date Romina Mcdaniel APRN, CNP [address] [place] [address] PCP - General Advanced Practice Nurse 10/06/15 documented as of this encounter
--- OUTSIDE RECORDS SUMMARY | 2024-10-26 22:52 | XMS_ITS | Clinical Summary ---
Author Organization [facility] Address [address] [place] [address] Phone Care Team Providers Care Wood Science Professor Name Role Phone Heather Clark SILAS PRESTON Primary Care Provider [phone] Allergies No known active allergies Medications No known medications Social History Tobacco Use Types Packs/Day Years Used Date Smoking Tobacco: Never Smokeless Tobacco: Never Alcohol Use Standard Drinks/Week Comments Not Currently 0 (1 standard drink = 0.6 oz pur e alcohol) Comments No Sex and Gender Information Value Date Recorded Sex Assigned at Not on file Legal Sex Female 3:35 PM JOINT MAKER MACHINE Gender Identity Not on file Sexual Orientation [...] Comparison is made to exams dated: ??06/05/2019 [facility], 09/05/2018 [facility], and 10/08/2014 [facility]. ?? BREAST TISSUE:The tissue of both [...] Alexey Gonsales M.D. ? ll/penrad:08/23/2023 22:14:19 ?? Logging Tractor Operator Swamp(s): Lizeth ??RT Frederick(Kobi)(Comfort), [facility] letter sent: Normal Exam ?? Reading location: [facility] BI-RADS: 1 Negative Procedure Note Alexey [...] Comparison is made to exams dated: 06/05/2019 [facility], 09/05/2018 [facility], and 10/08/2014 [facility]. BREAST TISSUE:The tissue of both breasts [...] exam. Electronically signed by: Alexey aviles/tiesha:08/23/2023 22:14:19 Logging Tractor Operator Swamp(s): RT Alex(R)(M), [facility] letter sent: Normal Exam Reading location: [facility] BI-RADS: 1 Negative Kelley Calvin APRN, CNP IMG MAMMO ORDERABLES Dawn l Result from Last 3 Months or Most Recently Relevant to Health Maintenance Insurance MEDICAID [employer] Care Teams Wood Science Professor Relationship Specialty Start Date End Date Heather Clark APRN, CNP [address] [place] [address] PCP - General Family Medicine 06/22/23
--- OUTSIDE RECORDS SUMMARY | 2024-10-26 22:52 | XMS_ITS | Encounter Summary ---
Author Organization [facility] Address [address] [place] [address] Phone Care Team Providers Care Stock Roller Name Role Phone Clark, Heather PRESTON CNP Primary Care Provider [phone] [phone] Reason for Referral * Radiology Services (Routine) - Closed Specialty Diagnoses / Procedures Referred By Ty vargas Referred To Contact Radiology Diagnoses Encounter for screening mammogram for malignant neoplasm of breast Procedures GREGORIA SCREENING BILATERAL DIGITAL W CAD W Kelley Galan APRN, CNP [address] [place] [address] Phone: tel: fax: Referral ID Status Reason Start Date Expiration Date Visits Re quested Visits Authorized [id number] Closed 06/17/2023 1 1 Reason for Visit * Radiology Services (Routine) - Closed Specialty Diagnoses / Procedures Referred By Ty vargas Referred To Contact Radiology Diagnoses Encounter for screening mammogram for malignant neoplasm of breast Procedures GREGORIA SCREENING BILATERAL DIGITAL W CAD W Kelley Galan APRN, CNP [address] [place] [address] [address] [place] [address] Phone: tel: fax: Referral ID Status Reason Start Date Expiration Date Visits Re quested Visits Authorized [id number] Closed 06/17/2023 1 1 Encounter Details Date Type Department Care Team (Latest Contact Info) Description 08/23/2023 10:11 AM CDT - 08/23/2023 11:59 PM CDT [facility] [address] [place] [id number] Kelley Calvin, MINE SUPERVISOR, TREAD TUBER MACHINE OPERATOR [address] [facility] [address] [place] [address] Discharge Disposition: Discharged to home or Selfcare Social History Tobacco Use Types Packs/Day Years Used Date Smoking Tobacco: Never Smokeless Tobacco: Never Alcohol Use Standard Drinks/Week Comments Not Currently 0 (1 standard drink = 0.6 oz pur e alcohol) Comments No Sex and Gender Information Value Date Recorded Sex Assigned at Not on file Legal Sex Female 3:35 PM SPEECH AND LANGUAGE SPECIALIST Gender Identity Not on file Sexual [...] is made to exams dated: ??06/05/2019 [facility], 09/05/2018 [facility], and 10/08/2014 [facility]. ?? BREAST TISSUE:The tissue of [...] Alexey Gonsales M.D. ? ll/penrad:08/23/2023 22:14:19 ?? Handbag Finisher(s): Lizeth ??RT Frederick(R)(M), [facility] letter sent: Normal Exam ?? Reading location: [facility] BI-RADS: 1 Negative Procedure Note [...] Comparison is made to exams dated: 06/05/2019 [facility], 09/05/2018 [facility], and 10/08/2014 [facility]. BREAST TISSUE:The tissue of both [...] exam. Electronically signed by: Alexey aviles/tiesha:08/23/2023 22:14:19 Handbag Finisher(s): RT Alex(R)(M), [facility] letter sent: Normal Exam Reading location: [facility] BI-RADS: 1 Negative us Kelley Calvin APRN, CNP IMTy MAMMO ORDERABLES Dawn l Result documented in this encounter Visit Diagnoses Diagnosis Encounter for screening mammogram for malignant neoplasm of breast Other screening mammogram documented in this encounter Care Teams Stock Roller Relationship Specialty Start Date End Date Heather Clark APRN, CNP [address] [place] [address] PCP - General Family Medicine 06/22/23 documented as of this encounter
--- OUTSIDE RECORDS SUMMARY | 2024-10-26 22:52 | XMS_ITS | Encounter Summary ---
Author Organization [facility] Care Team Providers Care Infant And Toddler Teacher Name Role Phone Romina Mcdaniel APRN, SILAS Primary Care Pro vider Encounter Details Date Type Department Care Team (Latest Contact Info) Description 08/13/2022 Travel Social History Tobacco Use Types Packs/Day Years Used Date Smoking Tobacco: Never Smokeless Tobacco: Never Alcohol Use Standard Drinks/Week Comments Not Currently 0 (1 standard drink = 0.6 oz pur e alcohol) Comments No Sex and Gender Information Value Date Recorded Sex Assigned at Not on file Legal Sex Female 3:35 PM STENOTYPE MACHINE OPERATOR Gender Identity Not on file Sexual Orientation Not on file COVID-19 Exposure Response Date Recorded In the last 10 days, have yo u been in contact with someone who was confirmed or suspected to have Coronavirus/COVID-19? No / Unsure 08/13/2022 7:32 PM CDT documented as of this encounter Plan of Treatment Not on file documented as of this encounter Visit Diagnoses Not on filedocumented in this encounter Care Teams Infant And Toddler Teacher Relationship Specialty Start Date End Date Romina Mcdaniel APRN, SILAS [address] [place] [id number] PCP - General Advanced Practice Nurse 10/06/15 documented as of this encounter
--- OUTSIDE RECORDS SUMMARY | 2024-10-26 22:52 | XMS_ITS | Encounter Summary ---
Author Organization [facility] Address [address] [place] [address] Phone Care Team Providers Care Pocket Maker Name Role Phone VioletaRomina Selena REINOSON, SILAS Primary Care Pro vider Reason for Visit * Reason Comments Rash Encounter Details Date Type Department Care Team (Late st Contact Info) Description 08/13/2022 7:47 PM CDT - 08/13/2022 8:12 PM CDT Emergency [facility] Emergency [address] [place] [address] Vinicius Raymond, [address] [place] [address] Urticaria Discharge Disposition: Discharged to home or Selfcare Social History Tobacco Use Types Packs/Day Years Used Date Smoking Tobacco: Never Smokeless Tobacco: Never Alcohol Use Standard Drinks/Week Comments Not Currently 0 (1 standard drink = 0.6 oz pur e alcohol) Comments No Sex and Gender Information Value Date Recorded Sex Assigned at Not on file 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 * Hives [id number] (Paraguayan) documented in this encounter Medications at Time [...] per ambulatory mode with self as responsible democrat. * Vinicius Raymond, NURIA - 08/13/2022 7:51 [...] unspecified documented in this encounter Care Teams Pocket Maker Relationship Specialty Start Date End Date Romina Mcdaniel, ENGINEER EXHAUSTER, BUSINESS LAW INSTRUCTOR [address] [place] [id number] PCP - General Advanced Practice Nurse 10/06/15 documented as of this encounter
== END 2024-10-17 14:01 | disposition home or self-care (01) ==
PROVIDERS: Family Medicine; Emergency Provider Physician Assistant; PCP Nurse Practitioner Family
DX: R07.89 Other chest pain (principal); I10 Essential (primary) hypertension; E78.5 Hyperlipidemia, unspecified
CPT/HCPCS: 36415; 71046; 80053; 83690; 83880; 84484; 85025; 85380; 85610; 85730; 93005; 96374; 99284; A9270